=== PATIENT | female | born 1945 | race Caucasian/White ===

== ENCOUNTER 2020-09-18 16:45 | Outpatient (REF) | payer MEDICARE, SELFPAY ==
--- NOTE | ~2020-09-18 | XR_ITS ---
EXAMINATION: XR THORACIC SPINE CLINICAL INFORMATION: Spontaneous mid back pain COMPARISON: CT chest 04/01/2019. TECHNIQUE: 3 views of the thoracic spine were obtained. FINDINGS: There is exaggerated thoracic kyphosis with mild loss of T7 vertebral height. Rest of the vertebral heights, alignment and disc heights are preserved. There is no visible acute fracture, dislocation or lytic process. The paravertebral soft tissues are normal. Incidental finding of a thick scarring right lung base. XR/XR thoracic spine 3V IMPRESSION: Suspect acute T7 compression fracture. Recommend bone scan for further evaluation.
== END 2020-09-18 16:46 | disposition home or self-care (01) ==
LOC: HO.XRAY 16:45
PROVIDERS: PCP Family Medicine; Visit Provider Family Medicine
DX: M54.6 Pain in thoracic spine (principal)
CPT/HCPCS: 72072

== ENCOUNTER → 2020-09-22 09:51 | Outpatient (REF) | payer MEDICARE, SELFPAY ==
--- NOTE | ~2020-09-22 | NM_ITS ---
EXAMINATION: NM BONE SCAN OF THE WHOLE BODY CLINICAL INFORMATION: Acute back pain. Compression fracture on thoracic spine 09/18/2020. COMPARISON: Thoracic spine 09/18/2020 TECHNIQUE: Multiple gamma scintillation camera images of the whole body were performed 3 hours following the intravenous administration of 25 mCi Tc-99m MDP. FINDINGS: In the head, no abnormal activity seen. Nonspecific activity seen in the nasal cavity related to sinonasal disease. In the thoracic cage and upper extremities, there is mild increased activity seen left seventh and right sixth vertebra In the spine, there is moderate increased activity superior to C6 vertebra corresponding to acute compression fracture. There is moderate activity seen in the right L5-S1 facet joint consistent degenerative changes. In the pelvis, no abnormal metabolic activity seen in the SI joints. In the lower extremities, moderate metabolic activity seen in bilateral No other definite bony abnormalities are noted. The urinary bladder and faint visualization of both kidneys are noted. NM/NM bone scan whole body IMPRESSION: Moderate increased activity T6 vertebra consistent acute compression fracture. Due to osteoporosis exact numbering of the thoracic spine is suboptimal. There is mild focal activity seen in left 7 the right sixth posterior ribs likely remote trauma/fracture. Mild degenerative changes right medial knee joint and bilateral midfoot region.
[2020-09-22 10:38] LABS: Hematocrit 45.7 % (37-47); Hemoglobin 14.4 g/dl (12.0-16.0); Mean Corpuscular HGB Conc 31.5 g/dl (31.0-35.0); Mean Corpuscular Hemoglobin 30.2 pg (27.0-33.0); Mean Corpuscular Volume 95.8 fL (80-98); Mean Platelet Volume 10.6 fL (9.4-12.3); Red Blood Count 4.77 X10*6/uL (4.20-5.50); Red Cell Distribution Width 17.2 % (11.0-16.0)
[2020-09-22 10:52] LABS: WBC ABN SCTR FOR CBC 1
[2020-09-22 11:27] LABS: Alanine Aminotransferase 17 U/L (0-31); Albumin Level 3.3 g/dL (3.5-5.0); Alkaline Phosphatase 142 U/L (39-117); Aspartate Amino Transferase 35 U/L (5-31); Bilirubin Total 0.6 mg/dL (0.0-1.0); Blood Urea Nitrogen 16 mg/dL (9-16); Calcium 9.5 mg/dL (8.4-10.2); Estimated Glomerular Filt Rate 47; Glucose Random 133 mg/dL (60-115); Total Protein 6.4 g/dL (6.5-8.0)
[2020-09-22 11:41] LABS: Anion Gap 13 (12-20); Carbon Dioxide 33 mmol/L (22-29); Chloride 101 mmol/L (96-108); Potassium 6.1 mmol/L (3.3-5.1); Sodium 141 mmol/L (135-145)
[2020-09-22 12:14] LABS: Atypical Lymphs Percent Manual 1 % (0-6); Band Neutrophils Percent 4 % (3-5); Eosinophils Percent Manual 2 % (0-4); Lymphocytes Percent Manual 7 % (20-40); Monocytes Percent Manual 11 % (2-11); Neutrophils Percent Manual 75 % (45-73)
[2020-09-22 12:15] LABS: Macrocytosis 1+ (5-14) /OIF; Platelet Estimate INCREASED (NORMAL); RBC Morphology NOTED
[2020-09-22 12:16] LABS: Atypical Lymph Absolute Manual 0.1 x10*3/uL; Eosinophils Absolute Manual 0.3 X10*3/UL (0.0-0.8); Large Platelet PRESENT; Lymphocytes Absolute Manual 0.9 X10*3/uL (0.6-4.8); Monocytes Absolute Manual 1.4 X10*3/uL (0.0-1.2); Platelet Count 886 X10*3/uL (160-400); Platelet Morphology Comment NOTED; White Blood Count 12.7 X10*3/uL (4.8-10.8)
== END ==
LOC: HO.NUCMED 09:51
PROVIDERS: PCP Internal Medicine Medical Oncology; Visit Provider Internal Medicine Medical Oncology
DX: S22.060A Wedge compression fracture of T7-T8 vertebra, initial encounter for closed fracture (principal); E78.5 Hyperlipidemia, unspecified; E66.3 Overweight; Z85.3 Personal history of malignant neoplasm of breast
CPT/HCPCS: 36415; 78306; 80053; 85007; 85027; A9503

== ENCOUNTER → 2020-09-25 09:47 | Day surgery (SDC) | payer MEDICARE, SELFPAY ==
[2020-09-25] VITALS (8 sets, daily range): BP systolic 128–166; BP diastolic 68–92; PULSE 84–97; RESP 20–22; TEMP 36.1; O2SAT 90–96; BMI 31.2
--- NOTE | ~2020-09-25 | CT_ITS ---
EXAMINATION: CT THORACIC SPINE WITHOUT CONTRAST CLINICAL INFORMATION: Severe thoracic pain from T6 compression fracture on a bone scan. COMPARISON: None. TECHNIQUE: Axial 2 mm thin and reformatted 2 mm thin sagittal and coronal images of the thoracic spine were obtained from T4 through T9-T10 disc level. This CT examination was performed using dose optimization techniques as appropriate, variously including the following: *Automated exposure control *Adjustment of mA and/or kV according to patient size (this includes techniques or standardized protocols for targeted exams where dose is matched to indication/reason for exam; i.e. extremities or head) *Use of iterative reconstruction technique DLP: 196 mGy-cm. FINDINGS: On sagittal reconstructed images, there is maintained upper thoracic kyphosis. There is severe loss of T6 vertebral height approximately 50-60%. There is no posterior bony component causing spinal canal compromise. The neural foramina are patent bilaterally. The adjacent T5, T4, T7 and T8 vertebral heights are normal. There is diffuse osteopenia. There is no underlying disc bulge or herniation is spinal canal stenosis from T4-T5 through T9-T10 disc level. The paravertebral soft tissues are normal. A moderate-sized consolidation atelectasis right lower lobe. CT/CT thoracic spine wo con IMPRESSION: Acute T6 compression fracture with approximately 50-60% loss of vertebral height. There is no posteriorly bony component causing spinal canal stenosis. Diffuse osteopenia. Focal right lower lobe consolidation/atelectasis.
[2020-09-25 10:35] LABS: Basophils Percent Auto 0.5 % (0-2); Imm Gran Pct Auto 0.8 % (0.0-0.4); Neutrophils Percent Auto 85.7 % (45-73); WBC ABN SCTR 1
[2020-09-25 10:41] LABS: INTERNATIONAL NORM RATIO 1.2 (0.9-1.1)
[2020-09-25 10:44] LABS: Partial Thromboplastin Time 45.1 SEC (24.1-38.0)
[2020-09-25 10:52] LABS: Basophils Absolute Auto 0.1 X10*3/uL (0.0-0.2); Eosinophils Absolute Auto 0.3 X10*3/uL (0.0-0.4); Hematocrit 44.9 % (37-47); Hemoglobin 14.5 g/dl (12.0-16.0); Lymphocytes Absolute Auto 0.6 X10*3/uL (1.2-4.9); Lymphocytes Percent Auto 4.8 % (20-40); Mean Corpuscular HGB Conc 32.3 g/dl (31.0-35.0); Mean Corpuscular Hemoglobin 30.4 pg (27.0-33.0); Mean Corpuscular Volume 94.1 fL (80-98); Mean Platelet Volume 10.5 fL (9.4-12.3); Monocytes Absolute Auto 0.8 X10*3/uL (0.1-1.2); Monocytes Percent Auto 6.2 % (2-11); Neutrophils Absolute Auto 11.3 X10*3/uL (2.0-8.3); Platelet Count 879 X10*3/uL (160-400); Red Blood Count 4.77 X10*6/uL (4.20-5.50); Red Cell Distribution Width 16.8 % (11.0-16.0)
--- NOTE | 2020-09-25 10:52 | P.CONAN_ITS ---
[facility] Active Problems Active Problems: All Active Problems (Updated 09/25/20 @ 10:32 by Marizol Bishop ent, RN) COPD (chronic obstructive pulmonary disease) (Acute) Past Medical History Medical History Cerebral aneurysm Cerebral infarct COPD (chronic obstructive pulmonary disease) Emphysema lung Former smoker GERD (gastroesophageal reflux disease) HTN (hypertension) Neuropathy Osteoarthritis Osteoporosis PVC (premature ventricular contraction) Rheumatic fever Thoracic kyphosis Surgical History Surgical History H/O bilateral breast reduction surgery H/O breast reconstruction H/O cerebral aneurysm repair H/O right mastectomy Social History Social History Advance Directives: No Advance Directives Information Provided: Yes Meds Allergies Allergy/AdvReac Type Severity Reaction Status Date / Time fluoxetine [From PROZAC] Allergy Intermediate UNKNOWN Unverified 11/25/19 16:42 dexamethasone [From MAXIDEX] Allergy Mild RASH Unverified 11/25/19 16:42 hydrochlorothiazide Allergy Unknown RASH Unverified 11/25/19 16:42 [Hydrochlorothiazide] moxifloxacin [Moxifloxacin] Allergy Unknown RASH Unverified 11/25/19 16:42 Serotonin 5HT-3 Antagonists AdvReac Unknown UNKNOWN Unverified 11/25/19 16:42 [Selective 5-HT3 Receptor Antagonist] trazodone AdvReac Unknown nausea and Verified 01/14/19 00:00 vomiting Tricyclic Compounds AdvReac Unknown UNKNOWN Unverified 11/25/19 16:42 [TRICYCLIC COMPOUNDS] From MAXIDEX Allergy Unknown UNKNOWN Uncoded 11/25/19 16:42 Maxide Allergy Unknown Uncoded 01/14/19 00:00 SSRI(Prozac) Allergy Unknown Uncoded 01/14/19 00:00 TCA(Nortripyline) Allergy Unknown Uncoded 01/14/19 00:00 NORTRIPTILIENE AdvReac Intermediate UNKNOWN Uncoded 11/25/19 16:42 Home Medications Medication Instructions Recorded Confirmed Last Taken Type Glucosamine Msm 750 mg 09/25/20 Unknown History anastrozole 1 tab PO DAILY 09/25/20 09/25/20 Unknown History ascorbic acid (vitamin C) [Vitamin 1,000 mg PO DAILY 09/25/20 09/25/20 Unknown History C] aspirin 81 mg PO DAILY 09/25/20 09/25/20 Unknown History bupropion HCl 1 tab PO DAILY 09/25/20 09/25/20 Unknown History famotidine 1 tab PO DAILY 09/25/20 09/25/20 Unknown History losartan 1 tab PO DAILY 09/25/20 09/25/20 Unknown History magnesium 250 mg PO DAILY 09/25/20 09/25/20 Unknown History meloxicam 1 tab PO DAILY 09/25/20 09/25/20 Unknown History pregabalin 1 cap PO BID 09/25/20 09/25/20 Unknown History quetiapine 1 tab PO BEDTIME 09/25/20 09/25/20 Unknown History Exam Exam Date and Time: September 25, 2020 1052 Height,Weight and Vital Signs: Height 5 ft Weight 72.575 kg Pertinent Lab Results Pertinent Lab Results: Laboratory Tests 09/25/20 10:29 PT 14.0 H INR 1.2 H APTT 45.1 H Airway Mallampati Class: II TM Dist: <=3cm Neck ROM: Limited Assessment and Plan Assessment Anesthesia Assessment: Anesthesia Plan Discussed and Chart Reviewed Final Anesthetic Review NPO: Yes ASA Class: III Final Preanesthetic Review: No Changes in Pt Med Stat, Meds/Allgs Chart Reviewed, Consent Obtained/Reviewed and Anes Risks/Benef Reviewed Patient Risk: Intermediate Procedure Risk: Low Assessment/Block/Sedation in SS: Assess/Block/Sedation-SS Anesthetic Plan Anesthetic Plan: MAC: Disposition: Standard PACU
[2020-09-25 10:55] LABS: WBC ABN SCTR FOR CBC 1; White Blood Count 13.1 X10*3/uL (4.8-10.8)
[2020-09-25 11:16] LABS: Sodium 138 mmol/L (135-145)
[2020-09-25 11:19] LABS: Anion Gap 13 (12-20); Carbon Dioxide 35 mmol/L (22-29); Chloride 95 mmol/L (96-108); Potassium 4.5 mmol/L (3.3-5.1)
[2020-09-25] MEDS: Albuterol/Iprat 2.5/0.5MG 3 ML AMPUL.NEB INHALE (12:53)
[2020-09-25] MEDS: ondansetron HCL 4 MG/2 ML VIAL IVPUSH (13:01)
[2020-09-25] MEDS: oxyCODONE HCl Immed Release 5 MG TABLET PO (13:16)
== END ==
PROVIDERS: PCP Family Medicine; Visit Provider Radiology Diagnostic Radiology
DX: S22.059A Unspecified fracture of T5-T6 vertebra, initial encounter for closed fracture (principal); Z53.8 Procedure and treatment not carried out for other reasons; R06.00 Dyspnea, unspecified; J98.11 Atelectasis; R61 Generalized hyperhidrosis; M40.204 Unspecified kyphosis, thoracic region; J44.9 Chronic obstructive pulmonary disease, unspecified; Z99.81 Dependence on supplemental oxygen; Z87.891 Personal history of nicotine dependence; I10 Essential (primary) hypertension; C50.919 Malignant neoplasm of unspecified site of unspecified female breast; Z79.811 Long term (current) use of aromatase inhibitors; X58.XXXA Exposure to other specified factors, initial encounter; Y93.9 Activity, unspecified; Y92.9 Unspecified place or not applicable; Y99.8 Other external cause status
CPT/HCPCS: 36415; 72128; 80051; 85025; 85610; 85730; 94640; J0131; J0690; J2405; J3010

== ENCOUNTER 2020-12-12 07:54 | Outpatient (REF) | payer MEDICARE, SELFPAY ==
--- NOTE | ~2020-12-12 | MM_ITS ---
EXAMINATION: BONE DENSITOMETRY CLINICAL INDICATION: Breast cancer. COMPARISON: Baseline BD dated 02/13/2007. Radiographs thoracic spine 09/18/2020, nuclear bone scan 09/22/2020, CT C-spine 09/25/2020. TECHNIQUE: Using a [email or web address] DXA System (software version: 13.1) manufactured by [employer], dual-energy x-ray absorptiometry was performed of the lumbar spine and left hip. The images are of good technical quality. Summary results are attached. FINDINGS: AP SPINE L1-L4: Current: BMD 0.740 g/cm2, Z-score -1.9, T-score -3.7, osteoporosis, 6.0% increase from baseline (<5% change is not significant). Baseline: BMD 0.698 g/cm2. LEFT FEMUR, NECK: Current: BMD 0.738 g/cm2, Z-score -0.2, T-score -2.2, osteopenia. Baseline: BMD 0.816 g/cm2. LEFT FEMUR, TOTAL: Current: BMD 0.839 g/cm2, Z-score 0.4, T-score -1.3, osteopenia, 11.2% decrease from baseline (<5% change is not significant). Baseline: BMD 0.945 g/cm2. IDENTIFIED RISK FACTORS: Early menopause, history of fracture (adult), secondary osteoporosis. HISTORY OF FRACTURE: Acute T6 compression fracture 2020. MEDICATIONS: Multivitamin, vitamin D, calcitonin. MM/XR DEXA axial skeleton IMPRESSION: 1. DIAGNOSIS: Severe osteoporosis based on the lowest T-score value of -3.7 in the lumbar spine and history compression fracture thoracic spine applying World Health Organization criteria. 2. 10-YEAR FRACTURE RISK PREDICTION, FRAX: Major osteoporotic fracture (clinical spine, forearm, hip or shoulder) 21.7%. Hip fracture 5.8%. 3. Treatment Recommendations: NOF guidelines recommend consideration for treatment in postmenopausal women and men age 50 and older presenting with the following: -A hip or vertebral (clinical or morphometric) fracture. -T-score less than or equal to -2.5 at the femoral neck or spine after appropriate evaluation to exclude secondary causes. -Low bone mass at the hip or spine and a 10-year fracture probability by FRAX of greater than or equal to 3% for hip fracture or greater than or equal to 20% for major osteoporotic fracture based on the [place] adapted WHO algorithm. 4. Other Recommendations: All treatment decisions require clinical judgment and consideration of individual patient factors, including patient preferences, comorbidities, previous drug use, risk factors not captured in the FRAX model (e.g. frailty, falls, vitamin D deficiency, increased bone turnover, interval significant decline in bone density) and possible under or overestimation of fracture risk by FRAX. Additional medical evaluation for secondary cause of low bone mineral density may be appropriate. FUTURE SCAN RECOMMENDATION: People with diagnosed cases of osteoporosis or at high risk for fracture should have regular bone mineral density tests. For patients eligible for Medicare, routine testing is allowed once every 2 years. The testing frequency can be increased to one year for patients who have rapidly progressing disease, those who are receiving or discontinuing medical therapy to restore bone mass, or have additional risk factors.
== END 2020-12-12 07:55 | disposition home or self-care (01) ==
LOC: HO.MAMMO 07:54
PROVIDERS: PCP Family Medicine; Visit Provider Internal Medicine Medical Oncology
DX: Z13.820 Encounter for screening for osteoporosis (principal); Z78.0 Asymptomatic menopausal state; C50.211 Malignant neoplasm of upper-inner quadrant of right female breast; S22.060A Wedge compression fracture of T7-T8 vertebra, initial encounter for closed fracture; X58.XXXA Exposure to other specified factors, initial encounter; Y93.9 Activity, unspecified; Y92.9 Unspecified place or not applicable; Y99.9 Unspecified external cause status
CPT/HCPCS: 77080

== ENCOUNTER 2021-02-23 12:54 | Outpatient (REF) | payer MEDICARE, SELFPAY ==
[2021-02-23 13:54] LABS: Hematocrit 48.9 % (37.0-47.0); Hemoglobin 15.2 g/dl (12.0-16.0); Mean Corpuscular HGB Conc 31.1 g/dl (31.0-35.0); Mean Corpuscular Hemoglobin 30.5 pg (27.0-33.0); Red Blood Count 4.99 X10*6/uL (4.20-5.50); Red Cell Distribution Width 13.6 % (11.0-16.0)
[2021-02-23 14:05] LABS: WBC ABN SCTR FOR CBC 1
[2021-02-23 14:19] LABS: Alanine Aminotransferase 23 U/L (0-31); Albumin Level 3.7 g/dL (3.5-5.0); Alkaline Phosphatase 140 U/L (39-117); Anion Gap 16 (12-20); Aspartate Amino Transferase 44 U/L (5-31); Bilirubin Total 0.8 mg/dL (0.0-1.0); Blood Urea Nitrogen 8 mg/dL (9-16); Calcium 9.8 mg/dL (8.4-10.2); Carbon Dioxide 29 mmol/L (22-29); Chloride 98 mmol/L (96-108); Estimated Glomerular Filt Rate > 60; Glucose Random 80 mg/dL (60-115); Potassium 5.6 mmol/L (3.3-5.1); Sodium 137 mmol/L (135-145); Total Protein 7.2 g/dL (6.5-8.0)
[2021-02-23 14:22] LABS: Basophils Percent Manual 1 % (0-2); Eosinophils Percent Manual 3 % (0-4); Lymphocytes Percent Manual 17 % (20-40); Monocytes Percent Manual 12 % (2-11); Neutrophils Percent Manual 67 % (45-73)
[2021-02-23 14:23] LABS: Band Neutrophils Percent 0 % (3-5)
[2021-02-23 14:24] LABS: RBC Morphology NORMAL
[2021-02-23 14:25] LABS: Giant Platelet PRESENT; Large Platelet PRESENT; Macrocytosis 1+ (5-14) /OIF; Platelet Estimate INCREASED (NORMAL); Platelet Morphology Comment NOTED
[2021-02-23 14:34] LABS: Basophils Abs Manual 0.1 X10*3/uL (0.0-0.2); Eosinophils Absolute Manual 0.4 X10*3/uL (0.0-0.4); Lymphocytes Absolute Manual 2.1 X10*3/uL (1.2-4.9); Monocytes Absolute Manual 1.5 X10*3/uL (0.1-1.2); Neutrophils Absolute Manual 8.2 X10*3/uL (2.0-8.3); White Blood Count 12.2 X10*3/uL (4.8-10.8)
[2021-02-23 14:36] LABS: Platelet Count 1055 X10*3/uL (160-400)
[2021-02-27 10:46] LABS: CA 27.29 31 U/mL (<38)
== END 2021-02-23 12:55 | disposition home or self-care (01) ==
LOC: HO.10HDL 12:54
PROVIDERS: Visit Provider Internal Medicine Medical Oncology
DX: S22.000D Wedge compression fracture of unspecified thoracic vertebra, subsequent encounter for fracture with routine healing (principal); I10 Essential (primary) hypertension; E78.5 Hyperlipidemia, unspecified; D47.3 Essential (hemorrhagic) thrombocythemia
CPT/HCPCS: 36415; 80053; 85007; 85025; 85027; 86300

== ENCOUNTER 2021-03-06 11:30 | Outpatient (REF) | payer MEDICARE, SELFPAY ==
[2021-03-06 14:26] LABS: MANUAL DIFF FLAG NO
[2021-03-06 14:39] LABS: Basophils Absolute Auto 0.1 X10*3/uL (0.0-0.2); Basophils Percent Auto 0.8 % (0-2); Eosinophils Absolute Auto 0.5 X10*3/uL (0.0-0.4); Eosinophils Percent Auto 4.4 % (0-4); Hematocrit 48.3 % (37.0-47.0); Hemoglobin 15.2 g/dl (12.0-16.0); Imm Gran Abs Auto 0.06 X10*3/uL (0.00-0.03); Imm Gran Pct Auto 0.6 % (0.0-0.4); Lymphocytes Absolute Auto 1.3 X10*3/uL (1.2-4.9); Lymphocytes Percent Auto 12.6 % (20-40); Mean Corpuscular HGB Conc 31.5 g/dl (31.0-35.0); Mean Corpuscular Hemoglobin 29.8 pg (27.0-33.0); Mean Corpuscular Volume 94.7 fL (80.0-98.0); Monocytes Percent Auto 9.2 % (2-11); Neutrophils Absolute Auto 7.7 x10*3/uL (2.0-8.3); Neutrophils Percent Auto 72.4 % (45-73); Platelet Count 960 X10*3/uL (160-400); Red Cell Distribution Width 13.9 % (11.0-16.0); White Blood Count 10.6 X10*3/uL (4.8-10.8)
== END 2021-03-06 11:31 | disposition home or self-care (01) ==
LOC: HO.10HDL 11:30
PROVIDERS: Visit Provider Internal Medicine Medical Oncology
DX: D45 Polycythemia vera (principal); Z13.71 Encounter for nonprocreative screening for genetic disease carrier status; Z66 Do not resuscitate
CPT/HCPCS: 36415; 81270; 85025

== ENCOUNTER 2021-04-24 12:23 | Outpatient (REF) | payer MEDICARE, SELFPAY ==
[2021-04-24 13:57] LABS: Hematocrit 47.8 % (37.0-47.0); Hemoglobin 15.1 g/dl (12.0-16.0); Mean Corpuscular HGB Conc 31.6 g/dl (31.0-35.0); Mean Corpuscular Hemoglobin 30.3 pg (27.0-33.0); Mean Corpuscular Volume 95.8 fL (80.0-98.0); Red Blood Count 4.99 X10*6/uL (4.20-5.50); Red Cell Distribution Width 18.9 % (11.0-16.0); White Blood Count 7.6 X10*3/uL (4.8-10.8)
[2021-04-24 14:32] LABS: Mean Platelet Volume 11.2 fL (9.4-12.3); Platelet Count 385 X10*3/uL (160-400)
== END 2021-04-24 12:24 | disposition home or self-care (01) ==
LOC: HO.10HDL 12:23
PROVIDERS: Absent Provider Internal Medicine Medical Oncology; Visit Provider Family Medicine
DX: D75.839 Thrombocytosis, unspecified (principal)
CPT/HCPCS: 36415; 85027

== ENCOUNTER 2021-06-05 14:32 | Outpatient (REF) | payer MEDICARE, SELFPAY ==
[2021-06-05 15:17] LABS: Hematocrit 45.9 % (37.0-47.0); Hemoglobin 14.8 g/dl (12.0-16.0); Mean Corpuscular HGB Conc 32.2 g/dl (31.0-35.0); Mean Corpuscular Hemoglobin 31.4 pg (27.0-33.0); Mean Corpuscular Volume 97.2 fL (80.0-98.0); Mean Platelet Volume 11.2 fL (9.4-12.3); Platelet Count 443 X10*3/uL (160-400); Red Blood Count 4.72 X10*6/uL (4.20-5.50); Red Cell Distribution Width 17.6 % (11.0-16.0)
[2021-06-05 15:26] LABS: WBC ABN SCTR FOR CBC 1
[2021-06-05 16:03] LABS: Atypical Lymphs Percent Manual 2 % (0-6); Band Neutrophils Percent 6 % (3-5); Basophils Percent Manual 1 % (0-2); Eosinophils Percent Manual 9 % (0-4); Lymphocytes Percent Manual 12 % (20-40); Monocytes Percent Manual 8 % (2-11); Myelocytes Percent 1 %; Neutrophils Percent Manual 61 % (45-73)
[2021-06-05 16:15] LABS: Macrocytosis 1+ (5-14) /OIF; RBC Morphology NOTED
[2021-06-05 16:16] LABS: Large Platelet PRESENT
[2021-06-05 16:17] LABS: Platelet Estimate SLIGHTLY INCREASED (NORMAL)
[2021-06-05 16:18] LABS: Platelet Morphology Comment NOTE; Toxic Vacuolation PRESENT
[2021-06-05 16:32] LABS: Atypical Lymph Absolute Manual 0.1 x10*3/uL; Basophils Abs Manual 0.1 X10*3/uL (0.0-0.2); Eosinophils Absolute Manual 0.6 X10*3/uL (0.0-0.4); Lymphocytes Absolute Manual 0.8 X10*3/uL (1.2-4.9); Monocytes Absolute Manual 0.5 X10*3/uL (0.1-1.2); Myelocytes Absolute 0.1 X10*/uL; Neutrophils Absolute Manual 4.4 X10*3/uL (2.0-8.3); White Blood Count 6.6 X10*3/uL (4.8-10.8)
== END 2021-06-05 14:33 | disposition home or self-care (01) ==
LOC: HO.LAB 14:32
PROVIDERS: Absent Provider Internal Medicine Medical Oncology; PCP Internal Medicine Medical Oncology; Visit Provider Family Medicine
DX: D75.839 Thrombocytosis, unspecified (principal)
CPT/HCPCS: 36415; 85007; 85025; 85027

== ENCOUNTER 2021-08-21 09:26 | Outpatient (REF) | payer MEDICARE, SELFPAY ==
[2021-08-21 09:39] LABS: MANUAL DIFF FLAG NO
[2021-08-21 10:26] LABS: Basophils Absolute Auto 0.1 X10*3/uL (0.0-0.2); Basophils Percent Auto 0.7 % (0-2); Eosinophils Absolute Auto 0.4 X10*3/uL (0.0-0.4); Eosinophils Percent Auto 4.6 % (0-4); Hematocrit 42.2 % (37.0-47.0); Hemoglobin 13.5 g/dl (12.0-16.0); Imm Gran Abs Auto 0.06 X10*3/uL (0.00-0.03); Imm Gran Pct Auto 0.6 % (0.0-0.4); Lymphocytes Absolute Auto 1.5 X10*3/uL (1.2-4.9); Lymphocytes Percent Auto 15.6 % (20-40); Mean Corpuscular Hemoglobin 32.1 pg (27.0-33.0); Mean Corpuscular Volume 100.2 fL (80.0-98.0); Mean Platelet Volume 10.6 fL (9.4-12.3); Monocytes Absolute Auto 1.1 X10*3/uL (0.1-1.2); Monocytes Percent Auto 11.5 % (2-11); Neutrophils Absolute Auto 6.4 x10*3/uL (2.0-8.3); Platelet Count 728 X10*3/uL (160-400); Red Blood Count 4.21 X10*6/uL (4.20-5.50); Red Cell Distribution Width 15.1 % (11.0-16.0); White Blood Count 9.5 X10*3/uL (4.8-10.8)
[2021-08-21 11:02] LABS: Alanine Aminotransferase 23 U/L (0-31); Albumin Level 3.6 g/dL (3.5-5.0); Alkaline Phosphatase 124 U/L (39-117); Anion Gap 13 (12-20); Aspartate Amino Transferase 37 U/L (5-31); Bilirubin Total 0.9 mg/dL (0.0-1.0); Blood Urea Nitrogen 16 mg/dL (9-16); Calcium 9.5 mg/dL (8.4-10.2); Carbon Dioxide 29 mmol/L (22-29); Chloride 103 mmol/L (96-108); Estimated Glomerular Filt Rate > 60; Glucose Random 87 mg/dL (60-115); Potassium 5.2 mmol/L (3.3-5.1); Sodium 140 mmol/L (135-145); Total Protein 6.8 g/dL (6.5-8.0)
[2021-08-23 08:43] LABS: CA 27.29 27 U/mL (<38)
== END 2021-08-21 09:27 | disposition home or self-care (01) ==
LOC: HO.LAB 09:26
PROVIDERS: PCP Internal Medicine Medical Oncology; Visit Provider Internal Medicine Medical Oncology
DX: I10 Essential (primary) hypertension (principal); C50.919 Malignant neoplasm of unspecified site of unspecified female breast; Z66 Do not resuscitate
CPT/HCPCS: 36415; 80053; 85025; 86300

== ENCOUNTER 2021-09-02 12:29 | Inpatient (IN) | payer MEDICARE, SELFPAY ==
[2021-09-02] VITALS (7 sets, daily range): BP systolic 75–111; BP diastolic 37–70; PULSE 96–107; RESP 18–22; TEMP 36.9–37.6; O2SAT 94–95; BMI 29.2
--- NOTE | ~2021-09-02 | CT_ITS ---
EXAMINATION: CT HEAD WITHOUT CONTRAST CLINICAL INFORMATION: Ataxia with weakness. Rule out stroke or bleed. COMPARISON: CTA head 06/01/2009 TECHNIQUE: Imaging was performed from the skull base to vertex without intravenous administration of contrast. This CT examination was performed using dose optimization techniques as appropriate, variously including the following: *Automated exposure control *Adjustment of mA and/or kV according to patient size (this includes techniques or standardized protocols for targeted exams where dose is matched to indication/reason for exam; i.e. extremities or head) *Use of iterative reconstruction technique Total exam dose length product: 638 mGy-cm FINDINGS: No intra or extra-axial fluid collection, hemorrhage, or mass. No ventriculomegaly. No midline shift or herniation. Basal cisterns are patent. Chen-white matter differentiation is maintained. Aneurysm clips project along the anterior [place] of [place] in the region of the left MCA. Small area of encephalomalacia in the left frontal lobe. No significant volume loss. Relatively extensive confluent hypoattenuation within the supratentorial white matter bilaterally more focal low attenuation in the left subinsular white matter. No calvarial fracture or soft tissue abnormality. The mastoid air cells and visualized portions of the paranasal sinuses are well aerated. Status post left frontotemporal craniotomy. CT/CT head/brain wo con IMPRESSION: 1. No intracranial hemorrhage or acute edematous territorial infarct. 2. Status post left frontotemporal craniotomy and aneurysm clipping x2. 3. Extensive supratentorial white matter hypoattenuation bilaterally, nonspecific, presumably sequela of chronic small vessel ischemia.
--- NOTE | ~2021-09-02 | XR_ITS ---
EXAMINATION: XR CHEST CLINICAL INFORMATION: Weakness and cough COMPARISON: 11/17/2019 TECHNIQUE: Frontal view of the chest was obtained. FINDINGS: Heart size upper limits of normal. No evidence of CHF. Again seen are some chronic reticular markings/atelectasis/scarring at the lung bases. At the left lung base, there is a new opacity seen in the left costophrenic angle which could be new subtle area of infiltrate. XR/XR chest 1V IMPRESSION: New opacity left costophrenic angle may represent infiltrate/atelectasis. Continued chronic changes at the lung bases.
--- NOTE | ~2021-09-02 | CT_ITS ---
EXAMINATION: CT CHEST WITHOUT CONTRAST CLINICAL INFORMATION: Shortness of breath COMPARISON: Previous chest CT most recent March 2019 and chest x-ray most recent 09/02/2021. CT of the thoracic spine and x-ray of the thoracic spine September 2020 TECHNIQUE: Multidetector volumetric CT imaging of the chest was done. Axial MIP volume rendering provided. Sagittal and coronal reformatted images were obtained. This CT examination was performed using dose optimization techniques as appropriate, variously including the following: *Automated exposure control *Adjustment of mA and/or kV according to patient size (this includes techniques or standardized protocols for targeted exams where dose is matched to indication/reason for exam; i.e. extremities or head) *Use of iterative reconstruction technique DLP: 146 mGy-cm FINDINGS: LUNGS: There is evidence of emphysema. There is a 3 mm peripheral or subpleural right upper lobe nodule adjacent to the major fissure axial image 112 series 7. There are small calcified nodules largest measuring 5 mm in the right upper lobe axial image 171 series 7 and 1 cm in the left lower lobe axial image 242 series 7. Pulmonary nodules are stable. There are increased peripheral reticular markings questionable for mild interstitial lung disease. There is bibasilar atelectasis/consolidation, right greater than left. No endobronchial or endotracheal lesion. MEDIASTINUM: The heart is enlarged. There is coronary artery calcification. There is no pericardial effusion. There are no enlarged hilar or mediastinal lymph nodes. PLEURA: There is no pleural effusion. No pleural mass or thickening. AXILLA: No lymphadenopathy. UPPER ABDOMEN: The liver appears cirrhotic. There are upper abdominal varices. No ascites. There is a gallstone in the gallbladder. The spleen is upper normal in size and there are splenic calcifications suggestive of old granulomatous disease. OSSEOUS STRUCTURES: There is a severe midthoracic vertebral body compression fracture increased from September 2020 exam. There is slight posterior displacement into the spinal canal measuring approximately 3 mm. There are old right lateral rib fractures. There are degenerative changes of the spine. CT/CT chest wo con IMPRESSION: Emphysema. Question mild interstitial lung disease. Atelectasis or small infiltrates at the lung bases, right greater than left. Enlarged heart and coronary artery calcification. Cirrhotic-appearing liver. Gallstone. Severe midthoracic vertebral body compression fracture increased from September 2020 exams Fleischner guidelines were followed.
[2021-09-02 13:32] LABS: Hematocrit 36.4 % (37.0-47.0); Hemoglobin 11.7 g/dl (12.0-16.0); Mean Corpuscular HGB Conc 32.1 g/dl (31.0-35.0); Mean Corpuscular Hemoglobin 31.6 pg (27.0-33.0); Mean Corpuscular Volume 98.4 fL (80.0-98.0); Mean Platelet Volume 11.1 fL (9.4-12.3); Platelet Count 405 X10*3/uL (160-400); Red Cell Distribution Width 14.8 % (11.0-16.0)
[2021-09-02 13:34] LABS: WBC ABN SCTR FOR CBC 1
[2021-09-02 13:40] LABS: INTERNATIONAL NORM RATIO 1.2 (0.9-1.1); Prothrombin Time 13.6 SEC (9.9-13.0)
[2021-09-02 13:43] LABS: Partial Thromboplastin Time 38.6 SEC (24.1-38.0)
[2021-09-02 13:44] LABS: Alanine Aminotransferase 20 U/L (0-31); Albumin Level 3.3 g/dL (3.5-5.0); Alkaline Phosphatase 99 U/L (39-117); Anion Gap 12 (12-20); Aspartate Amino Transferase 38 U/L (5-31); Bilirubin Total 0.5 mg/dL (0.0-1.0); Blood Urea Nitrogen 23 mg/dL (9-16); Calcium 9.1 mg/dL (8.4-10.2); Carbon Dioxide 27 mmol/L (22-29); Chloride 103 mmol/L (96-108); Creatinine Clr Calc Pharmacy 20.2; Estimated Glomerular Filt Rate 24; Glucose Random 97 mg/dL (60-115); Lipase 34 U/L (8-78); Sodium 137 mmol/L (135-145); Total Protein 6.3 g/dL (6.5-8.0)
[2021-09-02 13:45] LABS: Troponin-I High Sensitivity 26.8 ng/L (<3.5-17.0)
[2021-09-02 13:46] LABS: COVID-19 Test Negative (Negative); IDNOW Serial# 16C4AD1C; Influenza A Negative (Negative); Influenza B2 Negative (Negative)
--- NOTE | 2021-09-02 13:46 | ED_ITS ---
HPI - Altered Mental Status General Chief Complaint: Altered Mental Status Stated Complaint: Weakness/Fall t-1 Time Seen by Provider: 09/02/21 12:56 Source: patient and family (, Dr. Cruz) Mode of arrival: ambulatory Limitations: no limitations History of Present Illness HPI narrative: 76-year-old female who presents emergency department for evaluation of not feeling well, feeling off balance, having ataxia and increased confusion above her baseline. The patient's is a physician here at this institution . The information mainly came from the patient's . He states that his has never deficit and executive function disorders. They traveled to [place] for vacation. When they got to [place] the patient was not feeling well. Last night, the patient felt off balance and her noted that she was ataxic. The patient also was more confused than her baseline. The was concerned about the symptoms intro back to [place] to bring the patient to our emergency department. Related Data Home Medications Medication Instructions Recorded Confirmed Glucosamine Msm 750 mg 09/25/20 anastrozole 1 mg tablet 1 tab PO DAILY 09/25/20 09/25/20 ascorbic acid (vitamin C) 1,000 mg 1,000 mg PO DAILY 09/25/20 09/25/20 tablet (Vitamin C) aspirin 81 mg tablet 81 mg PO DAILY 09/25/20 09/25/20 famotidine 40 mg tablet 1 tab PO DAILY 09/25/20 09/25/20 losartan 100 mg tablet 1 tab PO DAILY 09/25/20 09/25/20 magnesium 250 mg tablet 250 mg PO DAILY 09/25/20 09/25/20 pregabalin 25 mg capsule 1 cap PO BID 09/25/20 09/25/20 quetiapine 25 mg tablet 1 tab PO BEDTIME 09/25/20 09/25/20 anagrelide 1 mg capsule 2 cap PO DAILY 09/02/21 bupropion HCl 300 mg 24 hr tablet, 1 tab PO DAILY 09/02/21 extended release donepezil 5 mg tablet 1 tab PO DAILY 09/02/21 Previous Rx's Medication Instructions Recorded albuterol sulfate 90 mcg/actuation 2 puff inhalation Q6H PRN 12/19/20 aerosol inhaler (ProAir HFA) shortness of breath or wheezing 30 days #18 grams budesonide 0.5 mg/2 mL suspension 0.5 mg (2 mL) inhalation DAILY 90 03/11/21 for nebulization days #180 mL ipratropium 0.5 mg-albuterol 3 mg 3 ml inhalation QID 90 days #1,080 03/11/21 (2.5 mg base)/3 mL nebulization mL soln Allergies Allergy/AdvReac Type Severity Reaction Status Date / Time fluoxetine [From PROZAC] Allergy Intermediate UNKNOWN Unverified 11/25/19 16:42 dexamethasone [From MAXIDEX] Allergy Mild RASH Unverified 11/25/19 16:42 hydrochlorothiazide Allergy Unknown RASH Unverified 11/25/19 16:42 [Hydrochlorothiazide] moxifloxacin [Moxifloxacin] Allergy Unknown RASH Unverified 11/25/19 16:42 Serotonin 5HT-3 Antagonists AdvReac Unknown UNKNOWN Unverified 11/25/19 16:42 [Selective 5-HT3 Receptor Antagonist] trazodone AdvReac Unknown nausea and Verified 01/14/19 00:00 vomiting Tricyclic Compounds AdvReac Unknown UNKNOWN Unverified 11/25/19 16:42 [TRICYCLIC COMPOUNDS] From MAXIDEX Allergy Unknown UNKNOWN Uncoded 11/25/19 16:42 Maxide Allergy Unknown Uncoded 01/14/19 00:00 SSRI(Prozac) Allergy Unknown Uncoded 01/14/19 00:00 TCA(Nortripyline) Allergy Unknown Uncoded 01/14/19 00:00 NORTRIPTILIENE AdvReac Intermediate UNKNOWN Uncoded 11/25/19 16:42 Review of Systems Review of Systems: Yes Unobtainable due to mental status [facility] Past Medical History [facility] Narrative: Social history: She lives with . She denies tobacco, alcohol and drug use Medical History (Updated 09/02/21 @ 15:37 by Milton Valdez MD) Cerebral aneurysm Cerebral infarct Emphysema lung Former smoker GERD (gastroesophageal reflux disease) HTN (hypertension) Neuropathy Osteoarthritis Osteoporosis PVC (premature ventricular contraction) Rheumatic fever Sepsis Thoracic kyphosis Thrombocytosis Surgical History H/O bilateral breast reduction surgery H/O breast reconstruction H/O cerebral aneurysm repair H/O right mastectomy Social History Social History Patient Tobacco Use Status: Former Tobacco user Use of substances other than those prescribed or required for medical reasons: No Advance Directives: Yes Advance Directives on File: Yes Advance Directives Date on File: 09/26/20 Physical Exam ED Vital Signs: Vital Signs - 24 hr 09/02/21 12:33 09/02/21 12:46 09/02/21 13:58 Temperature 99.6 F 98.4 F Pulse Rate 107 H 106 H Respiratory Rate 22 H 20 Blood Pressure 80/38 L 101/48 L Pulse Oximetry 94 95 Oxygen Delivery Method Room Air Room Air 09/02/21 14:48 Temperature 98.4 F Pulse Rate 97 Respiratory Rate Blood Pressure 104/45 L Pulse Oximetry Oxygen Delivery Method BMI result Body Mass Index 29.2 Const Other: Awake, alert, elderly female, very pleasant cooperative, oriented to person, answers questions appropriately but deferred medical questions to her HENMT Head: Yes normal to inspection, Yes normocephalic and Yes atraumatic Ears: external ears normal General nose exam: Normal external nose present Face and sinus: Yes normal facial exam Mouth: Normal oral and palatal mucosa present Throat: Yes posterior oropharynx normal Eyes General: appearance normal, both eyes and all related structures Pupils: Equal, round and reactive pupils present Neck Neck: Yes normal visual inspection, Yes no lymphadenopathy, Yes trachea midline and Yes supple Chest Chest palpation & inspection: normal inspection of the chest and normal palpation of entire chest wall Resp Effort & Inspection: normal respiratory effort and able to speak in complete sentences Auscultation: clear to auscultation bilaterally Cardio Rate: regular rate Rhythm: regular rhythm Heart sounds: S1 normal heart sound present, S2 normal heart sound present and no murmurs GI Inspection: Yes normal to inspection Palpation (GI): Soft to palpation, nontender and no guarding Auscultation: normal bowel sounds General: Yes no CVA tenderness Back/Spine/Pelvis Back: no CVA tenderness Skin General skin exam: no rashes or lesions noted Neuro Cranial nerves: Yes CN's II-XII intact bilaterally and Yes Equal, round and reactive pupils present Cognition (Neuro): normal cognition Motor exam (neuro): 5/5 motor strength present throughout Extrem General: Yes normal to inspection Psych Appearance: grossly normal Speech and movement: Normal speech and movement present Affect: normal affect Attitude: cooperative Thought process: Normal thought process present Thought content: Normal thought content present Course Course Course Narrative: 76-year-old female who presents emergency department for evaluation of not feeling well, being off balance, increased confusion above her baseline and having ataxia. Information comes from the patient's who is a physician at this institution. Vital signs revealed a low blood pressure of 80/38, elevated heart rate 107, elevated respiratory 22. Patient was afebrile and her O2 saturation was 94% on room air. Patient's physical examination was unremarkable. Differential includes but is not limited to stroke, cerebral bleed, urinary tract infection, pneumonia, metabolic abnormality. I did order a CBC, CMP, lactate, lipase, troponin, blood cultures x2, chest x-ray and CT scan of the brain without contrast. Patient was initially hypotensive and she was ordered to get a L of normal saline IV. 1529: Laboratory evaluation: Anemia with an H&H of 11.736.4. Elevated BUN and creatinine 23 and 2.0. Troponin 1 elevated 26.8 lactate normal 1.1. COVID-19 and influenza negative. Urinalysis: 2+ leukocyte esterase, 1+ nitrates. Microscopic: 29 WBCs, 4+ bacteria, 1+ squamous cells. Radiology evaluation: Chest x-ray: Bilateral atelectasis/infiltrates, increase bronchovascular markings CT scan of the brain: No acute disease. Left temporal craniotomy with aneurysm clips. The patient's symptoms are most likely caused by an infectious process either urinary tract infection or pneumonia. The patient was ordered to get ceftriaxone 1 g IV and azithromycin 500 mg IV. I will obtain an EKG on this patient and repeat the patient's troponin at 16:15 hours. I will discuss admission with the covering hospitalist, Dr. Alonso. MDM - Altered Mental Status Lab Data Result diagrams: 09/02/21 13:14 09/02/21 13:14 Labs: Lab Results 09/02/21 09/02/21 09/02/21 Range/Units 13:13 13:13 13:14 WBC 11.1 H (4.8-10.8) X10*3/uL RBC 3.70 L (4.20-5.50) X10*6/uL Hgb 11.7 L (12.0-16.0) g/dl Hct 36.4 L (37.0-47.0) % MCV 98.4 H (80.0-98.0) fL MCH 31.6 (27.0-33.0) pg MCHC 32.1 (31.0-35.0) g/dl RDW 14.8 (11.0-16.0) % Plt Count 405 H D (160-400) X10*3/uL MPV 11.1 (9.4-12.3) fL Immature Gran % (Auto) Cancelled Neut % (Auto) Cancelled Lymph % (Auto) Cancelled [place] % (Auto) Cancelled Eos % (Auto) Cancelled Baso % (Auto) Cancelled Lymph # (Auto) Cancelled [place] # (Auto) Cancelled Eos # (Auto) Cancelled Baso # (Auto) Cancelled Abs Immat Gran (auto) Cancelled Absolute Neuts (auto) Cancelled Absolute Nucleated RBC 0.000 (0.0-0.012) X10*3/uL Nucleated RBC % (auto) 0.0 (0.0-0.2) /100WBC Neutrophils % (Manual) 83 H (45-73) % Band Neutrophils % 5 (3-5) % Lymphocytes % (Manual) 5 L (20-40) % Monocytes % (Manual) 5 (2-11) % Eosinophils % (Manual) 2 (0-4) % Abs Neuts (Manual) 9.8 H (2.0-8.3) X10*3/uL Lymphocytes # (Manual) 0.6 L (1.2-4.9) X10*3/uL Monocytes # (Manual) 0.6 (0.1-1.2) X10*3/uL Eosinophils # (Manual) 0.2 (0.0-0.4) X10*3/uL Platelet Estimate INCREASED (NORMAL) Large Platelets PRESENT Giant Platelets PRESENT Plt Morphology Comment NOTED RBC Morphology NOTED Hypochromasia 1+ (5-14) /OIF Macrocytosis 1+ (5-14) /OIF Ovalocytes 1+ (5-14) /OIF PT (9.9-13.0) SEC INR (0.9-1.1) APTT (24.1-38.0) SEC Sodium (135-145) mmol/L Potassium (3.3-5.1) mmol/L Chloride (96-108) mmol/L Carbon Dioxide (22-29) mmol/L Anion Gap (12-20) BUN (9-16) mg/dL Creatinine (0.5-1.4) mg/dL Estim Creat Clear Calc Estimated GFR Random Glucose (60-115) mg/dL Lactic Acid (0.5-2.0) mmol/L Calcium (8.4-10.2) mg/dL Total Bilirubin (0.0-1.0) mg/dL AST (5-31) U/L ALT (0-31) U/L Alkaline Phosphatase (39-117) U/L Troponin I High Sens (<3.5-17.0) ng/L Total Protein (6.5-8.0) g/dL Albumin (3.5-5.0) g/dL Lipase (8-78) U/L Urine Color Urine Appearance Urine pH (5.0-8.0) Ur Specific [place] (1.005-1.025) Urine Protein (NEG-TRACE) MG/DL Urine Glucose (UA) (NEG) MG/DL Urine Ketones (NEG) MG/DL Urine Blood (NEG) Urine Nitrite (NEG) Ur Leukocyte Esterase (NEG) COVID-19 (REYNALDO) Negative (Negative) COVID-19 Clin Com See Note Influenza Type A (JAYLON) Negative (Negative) Influenza Type B (JAYLON) Negative (Negative) Influenza A & B Note See Note 09/02/21 09/02/21 09/02/21 Range/Units 13:14 13:14 13:14 WBC (4.8-10.8) X10*3/uL RBC (4.20-5.50) X10*6/uL Hgb (12.0-16.0) g/dl Hct (37.0-47.0) % MCV (80.0-98.0) fL MCH (27.0-33.0) pg MCHC (31.0-35.0) g/dl RDW (11.0-16.0) % Plt Count (160-400) X10*3/uL MPV (9.4-12.3) fL Immature Gran % (Auto) Neut % (Auto) Lymph % (Auto) [place] % (Auto) Eos % (Auto) Baso % (Auto) Lymph # (Auto) [place] # (Auto) Eos # (Auto) Baso # (Auto) Abs Immat Gran (auto) Absolute Neuts (auto) Absolute Nucleated RBC (0.0-0.012) X10*3/uL Nucleated RBC % (auto) (0.0-0.2) /100WBC Neutrophils % (Manual) (45-73) % Band Neutrophils % (3-5) % Lymphocytes % (Manual) (20-40) % Monocytes % (Manual) (2-11) % Eosinophils % (Manual) (0-4) % Abs Neuts (Manual) (2.0-8.3) X10*3/uL Lymphocytes # (Manual) (1.2-4.9) X10*3/uL Monocytes # (Manual) (0.1-1.2) X10*3/uL Eosinophils # (Manual) (0.0-0.4) X10*3/uL Platelet Estimate (NORMAL) Large Platelets Giant Platelets Plt Morphology Comment RBC Morphology Hypochromasia /OIF Macrocytosis /OIF Ovalocytes /OIF PT 13.6 H (9.9-13.0) SEC INR 1.2 H (0.9-1.1) APTT 38.6 H (24.1-38.0) SEC Sodium 137 (135-145) mmol/L Potassium 5.0 (3.3-5.1) mmol/L Chloride 103 (96-108) mmol/L Carbon Dioxide 27 (22-29) mmol/L Anion Gap 12 (12-20) BUN 23 H (9-16) mg/dL Creatinine 2.03 H (0.5-1.4) mg/dL Estim Creat Clear Calc 20.2 Estimated GFR 24 Random Glucose 97 (60-115) mg/dL Lactic Acid (0.5-2.0) mmol/L Calcium 9.1 (8.4-10.2) mg/dL Total Bilirubin 0.5 (0.0-1.0) mg/dL AST 38 H (5-31) U/L ALT 20 (0-31) U/L Alkaline Phosphatase 99 D (39-117) U/L Troponin I High Sens 26.8 H (<3.5-17.0) ng/L Total Protein 6.3 L (6.5-8.0) g/dL Albumin 3.3 L (3.5-5.0) g/dL Lipase 34 (8-78) U/L Urine Color Urine Appearance Urine pH (5.0-8.0) Ur Specific [place] (1.005-1.025) Urine Protein (NEG-TRACE) MG/DL Urine Glucose (UA) (NEG) MG/DL Urine Ketones (NEG) MG/DL Urine Blood (NEG) Urine Nitrite (NEG) Ur Leukocyte Esterase (NEG) COVID-19 (REYNALDO) (Negative) COVID-19 Clin Com Influenza Type A (JAYLON) (Negative) Influenza Type B (JAYLON) (Negative) Influenza A & B Note 09/02/21 09/02/21 Range/Units 14:03 14:47 WBC (4.8-10.8) X10*3/uL RBC (4.20-5.50) X10*6/uL Hgb (12.0-16.0) g/dl Hct (37.0-47.0) % MCV (80.0-98.0) fL MCH (27.0-33.0) pg MCHC (31.0-35.0) g/dl RDW (11.0-16.0) % Plt Count (160-400) X10*3/uL MPV (9.4-12.3) fL Immature Gran % (Auto) Neut % (Auto) Lymph % (Auto) [place] % (Auto) Eos % (Auto) Baso % (Auto) Lymph # (Auto) [place] # (Auto) Eos # (Auto) Baso # (Auto) Abs Immat Gran (auto) Absolute Neuts (auto) Absolute Nucleated RBC (0.0-0.012) X10*3/uL Nucleated RBC % (auto) (0.0-0.2) /100WBC Neutrophils % (Manual) (45-73) % Band Neutrophils % (3-5) % Lymphocytes % (Manual) (20-40) % Monocytes % (Manual) (2-11) % Eosinophils % (Manual) (0-4) % Abs Neuts (Manual) (2.0-8.3) X10*3/uL Lymphocytes # (Manual) (1.2-4.9) X10*3/uL Monocytes # (Manual) (0.1-1.2) X10*3/uL Eosinophils # (Manual) (0.0-0.4) X10*3/uL Platelet Estimate (NORMAL) Large Platelets Giant Platelets Plt Morphology Comment RBC Morphology Hypochromasia /OIF Macrocytosis /OIF Ovalocytes /OIF PT (9.9-13.0) SEC INR (0.9-1.1) APTT (24.1-38.0) SEC Sodium (135-145) mmol/L Potassium (3.3-5.1) mmol/L Chloride (96-108) mmol/L Carbon Dioxide (22-29) mmol/L Anion Gap (12-20) BUN (9-16) mg/dL Creatinine (0.5-1.4) mg/dL Estim Creat Clear Calc Estimated GFR Random Glucose (60-115) mg/dL Lactic Acid 1.1 (0.5-2.0) mmol/L Calcium (8.4-10.2) mg/dL Total Bilirubin (0.0-1.0) mg/dL AST (5-31) U/L ALT (0-31) U/L Alkaline Phosphatase (39-117) U/L Troponin I High Sens (<3.5-17.0) ng/L Total Protein (6.5-8.0) g/dL Albumin (3.5-5.0) g/dL Lipase (8-78) U/L Urine Color YELLOW Urine Appearance HAZY Urine pH 5.5 (5.0-8.0) Ur Specific [place] 1.025 (1.005-1.025) Urine Protein NEG (NEG-TRACE) MG/DL Urine Glucose (UA) NEG (NEG) MG/DL Urine Ketones NEG (NEG) MG/DL Urine Blood NEG (NEG) Urine Nitrite POS H (NEG) Ur Leukocyte Esterase 2+ H (NEG) COVID-19 (REYNALDO) (Negative) COVID-19 Clin Com Influenza Type A (JAYLON) (Negative) Influenza Type B (JAYLON) (Negative) Influenza A & B Note Discharge Plan Discharge Patient Disposition: Admitted As Inpatient Prescriptions: No Action albuterol sulfate [ProAir HFA] 90 mcg/actuation HFA aerosol inhaler 2 puff inhalation Q6H PRN (Reason: shortness of breath or wheezing) 30 Days Qty: 18 11RF ipratropium-albuterol 0.5 mg-3 mg(2.5 mg base)/3 mL solution for nebulization 3 ml inhalation QID 90 Days Qty: 1080 3RF budesonide 0.5 mg/2 mL suspension for nebulization 0.5 mg inhalation DAILY 90 Days Qty: 180 3RF quetiapine 25 mg tablet 1 tab PO BEDTIME anastrozole 1 mg tablet 1 tab PO DAILY famotidine 40 mg tablet 1 tab PO DAILY meloxicam 7.5 mg tablet 1 tab PO DAILY losartan 100 mg tablet 1 tab PO DAILY pregabalin 25 mg capsule 1 cap PO BID Glucosamine Msm 750 mg bupropion HCl 150 mg tablet sustained-release 12 hr 1 tab PO DAILY ascorbic acid (vitamin C) [Vitamin C] 1,000 mg Tablet 1,000 mg PO DAILY magnesium 250 mg Tablet 250 mg PO DAILY aspirin 81 mg Tablet 81 mg PO DAILY
[2021-09-02] MEDS: 0.9 % Sodium Chloride 1,000 ML 999 ML IV ×2 (13:53→23:37)
--- NOTE | 2021-09-02 14:05 | PC.NURSE ---
pt alert but appears slightly drowsy, pt was able to answer questions appropriately, original did state that the year was 2005 but then said no its 2021, pt states that she feels like she is drunk, denies dizziness, denies pain, moving all extremities without any difficulties, no visual facial droop, hand grasp strong and equal bit did state she was having difficulty when ambualting
[2021-09-02 14:10] LABS: Band Neutrophils Percent 5 % (3-5); Eosinophils Percent Manual 2 % (0-4); Lymphocytes Percent Manual 5 % (20-40); Monocytes Percent Manual 5 % (2-11); Neutrophils Percent Manual 83 % (45-73)
[2021-09-02 14:13] LABS: Giant Platelet PRESENT; Large Platelet PRESENT; Macrocytosis 1+ (5-14) /OIF; Platelet Estimate INCREASED (NORMAL); Platelet Morphology Comment NOTED; RBC Morphology NOTED
[2021-09-02 14:15] LABS: Hypochromasia 1+ (5-14) /OIF; Ovalocytes 1+ (5-14) /OIF
[2021-09-02 14:16] LABS: Eosinophils Absolute Manual 0.2 X10*3/uL (0.0-0.4); Lymphocytes Absolute Manual 0.6 X10*3/uL (1.2-4.9); Monocytes Absolute Manual 0.6 X10*3/uL (0.1-1.2); Neutrophils Absolute Manual 9.8 X10*3/uL (2.0-8.3); White Blood Count 11.1 X10*3/uL (4.8-10.8)
[2021-09-02 14:28] LABS: Lactic Acid 1.1 mmol/L (0.5-2.0)
[2021-09-02 14:54] LABS: Appearance Urine HAZY; Color Urine YELLOW; Glucose Urine UA NEG (NEG); Leukocyte Esterase Urine 2+ (NEG); Nitrite Urine POS (NEG); PH 5.5 (5.0-8.0); Specific Gravity - Urine 1.025 (1.005-1.025); UACC Culture Trigger YES; Urine Blood NEG (NEG); Urine Ketones NEG (NEG); Urine Protein NEG (NEG-TRACE)
[2021-09-02 15:13] LABS: Bacteria Urine 4+ /LPF; Squamous Epithelial Cell Urine 1+ /LPF; Uric Acid Crystals Urine TRACE /LPF; WBC Clumps Urine NOTED
--- NOTE | 2021-09-02 15:33 | ECG_ITS ---
Test Reason : AMS Blood Pressure : / mmHG Vent. Rate : 093 BPM Atrial Rate : 093 BPM P-R Int : 154 ms QRS Dur : 108 ms QT Int : 422 ms P-R-T Axes : 019 -51 050 degrees QTc Int : 524 ms Normal sinus rhythm Left anterior fascicular block Moderate voltage criteria for LVH, may be normal variant ( R in aVL , Galen product ) Prolonged QT Abnormal ECG When compared with ECG of 17-NOV-2019 22:14, Premature ventricular complexes are no longer Present Referred By: Milton Valdez Electronically Signed By:TERELL TOMLIN
[2021-09-02] MEDS: cefTRIAXone sodium 1 GM in 0.9 % Sodium Chloride 50 ML IV (16:17)
--- NOTE | 2021-09-02 16:21 | P.HPHOSP_ITS ---
History of Present Illness Date of Service: 09/02/21 Chief Complaint: Confusion 76 year female with COPD on home O2, HTN, GERD, h/o of cerbral aneurysm s/p clipping, OA of kneeds, h/o breast cancer, local recurrence on anasrazol, h/o thrombocytosis on anagrelide...history mostly given by at bedside who brought her in to be evaluated for altered mental status and unsteady gait. They went to [place] yesterday for vacation when he noted that she was somehow confused and was having trouble with executive functions, this went on until today and therefore they returned home and brought her to the ED. On my evaluation she seemed less confused. Work up has included a head CT showing no acute finding, CXR. ? Pneumonia and UA is grossely positive for UTI, WBC is 11 and is 2.03 today, normal or 0.8 on 08/21. ED treatment: IV Fluid, Azithro, and Ceftriaxone. Review of Systems Review of Systems: Gen: no fever Resp: no sob, no cough CV: no chest, no SAMPSON, no leg edema GI: No n/v, no abd pain Neuro: some confusion, headache Yes all other systems are reviewed and are negative [facility] Medical History Cerebral aneurysm Cerebral infarct Emphysema lung Former smoker GERD (gastroesophageal reflux disease) HTN (hypertension) Neuropathy Osteoarthritis Osteoporosis PVC (premature ventricular contraction) Rheumatic fever Sepsis Thoracic kyphosis Thrombocytosis Pertinent family history: HTN Surgical History H/O bilateral breast reduction surgery H/O breast reconstruction H/O cerebral aneurysm repair H/O right mastectomy Social History Patient Tobacco Use Status: Former Tobacco user Use of substances other than those prescribed or required for medical reasons: No Advance Directives: Yes Advance Directives on File: Yes Advance Directives Date on File: 09/26/20 Meds Allergies Allergy/AdvReac Type Severity Reaction Status Date / Time fluoxetine [From PROZAC] Allergy Intermediate UNKNOWN Unverified 11/25/19 16:42 dexamethasone [From MAXIDEX] Allergy Mild RASH Unverified 11/25/19 16:42 hydrochlorothiazide Allergy Unknown RASH Unverified 11/25/19 16:42 [Hydrochlorothiazide] moxifloxacin [Moxifloxacin] Allergy Unknown RASH Unverified 11/25/19 16:42 Serotonin 5HT-3 Antagonists AdvReac Unknown UNKNOWN Unverified 11/25/19 16:42 [Selective 5-HT3 Receptor Antagonist] trazodone AdvReac Unknown nausea and Verified 01/14/19 00:00 vomiting Tricyclic Compounds AdvReac Unknown UNKNOWN Unverified 11/25/19 16:42 [TRICYCLIC COMPOUNDS] From MAXIDEX Allergy Unknown UNKNOWN Uncoded 11/25/19 16:42 Maxide Allergy Unknown Uncoded 01/14/19 00:00 SSRI(Prozac) Allergy Unknown Uncoded 01/14/19 00:00 TCA(Nortripyline) Allergy Unknown Uncoded 01/14/19 00:00 NORTRIPTILIENE AdvReac Intermediate UNKNOWN Uncoded 11/25/19 16:42 Active Medications: Current Medications Azithromycin 500 mg/ Sodium (Chloride) 250 mls @ 125 mls/hr IV ONCE STA Stop: 09/02/21 17:18 Pharmacy Consult (Consult Rx Perform Med Rec) 1 each MISCELLANE ONCE PRN PRN Reason: Consult order Home Medications Medication Instructions Recorded Confirmed Last Taken Type Glucosamine Msm 750 mg 09/25/20 Unknown History anastrozole 1 mg tablet 1 tab PO DAILY 09/25/20 09/25/20 Unknown History ascorbic acid (vitamin C) 1,000 mg 1,000 mg PO DAILY 09/25/20 09/25/20 Unknown History tablet (Vitamin C) aspirin 81 mg tablet 81 mg PO DAILY 09/25/20 09/25/20 Unknown History famotidine 40 mg tablet 1 tab PO DAILY 09/25/20 09/25/20 Unknown History losartan 100 mg tablet 1 tab PO DAILY 09/25/20 09/25/20 Unknown History magnesium 250 mg tablet 250 mg PO DAILY 09/25/20 09/25/20 Unknown History pregabalin 25 mg capsule 1 cap PO BID 09/25/20 09/25/20 Unknown History quetiapine 25 mg tablet 1 tab PO BEDTIME 09/25/20 09/25/20 Unknown History anagrelide 1 mg capsule 2 cap PO DAILY 09/02/21 Unknown History bupropion HCl 300 mg 24 hr tablet, 1 tab PO DAILY 09/02/21 Unknown History extended release donepezil 5 mg tablet 1 tab PO DAILY 09/02/21 Unknown History Physical Exam Vital Signs and Narrative: Vital Signs: Last Vital Signs Temp 98.4 F 09/02/21 14:48 Pulse 97 09/02/21 14:48 Resp 20 09/02/21 13:58 BP 104/45 L 09/02/21 14:48 Pulse Ox 95 09/02/21 13:58 O2 Del Method 09/02/21 13:58 BMI result Body Mass Index 29.2 Const: Other: Constitutional: Alert, oriented to self, hospital, yearnot date Mental Status: Oriented to person, place and time. Eyes: Pupils are equal, round and reactive to light. Ear, Nose and Throat: Oropharynx clear, mucous membranes moist. Respiratory: Clear to auscultation. No wheezing, rales or rhonchi. Cardiovascular: S1 S2 regular. No murmurs, rubs or gallops. Gastrointestinal: Abdomen soft, non-tender, non-distended. Normal bowel sounds.? Neurologic: Cranial nerves II-XII grossly intact. No focal neurological deficits. Moves all extremities spontaneously.? gait not tested, finger to nose test was ok Skin: No rashes or lesions.? Musculoskeletal: No cyanosis or clubbing. Psychiatric: Normal mood and affect? Results Labs CBC and Chem 7: 09/02/21 13:14 09/02/21 13:14 Assessment and Plan (1) COPD (chronic obstructive pulmonary disease): Status: Acute (2) Acute alteration in mental status: Status: Acute (3) Pneumonia: Qualifiers: Laterality: bilateral Lung location: lower lobe of lung Pneumonia type: due to unspecified organism Qualified Code(s): J18.9 - Pneumonia, unspecified organism Status: Acute (4) Urinary tract infection: Qualifiers: Hematuria presence: without hematuria Urinary tract infection type: site unspecified Qualified Code(s): N39.0 - Urinary tract infection, site not specified Status: Acute (5) Weakness: Status: Acute Plan 76 year old female with history of COPD, h/o cerebral aneurysm, HTN here with confusion and found to have CAT, dehydration, UTI and suspected community acquited penumonia 1/Metabolic encephalopath (confusion)--likely due UTI, CAT and dehydration. CT ok, if not improving get MRI -Treat IV and Abx for PNA -closely monitor 2/ UTI--IV ceftriaxone and follow cultures 3/ CAT--pre renal IVF, repeat in AM if not improving 4/ PNA--Ceftriaxone and Zithro 5/ COPD no acute exacerbation -Duoneb QiD, Oxygen at 3L (baseline) 6/ Thrombocytosis--continue anagrelide 7/ GERD--PPI 8/h/o breast CA--Arimidex 9/DVT-- heparin Admission to [facility] 2 midnight due to metabolic encephalopathy, UTI that needs IV Abx, and CAT that needs IVF, Full code Quality Stroke Does the patient have a stroke diagnosis?: No VTE Prior VTE?: No VTE Risk Level:: Medical - moderate - high VTE Device Contraindication: Treatment Not Indicated VTE Drug Contraindication: N/A - Med Ordered
--- NOTE | 2021-09-02 17:14 | PHA.MEDREC ---
Pharmacy Consult ? Medication Reconciliation Pharmacy has completed the medication reconciliation. Pt's at bedside with medication list.
[2021-09-02] MEDS: Acetaminophen 325 MG TABLET 650 MG PO (17:17)
[2021-09-02] MEDS: Heparin Sodium,Porcine 5,000 UNIT/ML VIAL 5000 UNIT SUBCUT (17:17)
[2021-09-02] MEDS: Azithromycin 500 MG in 0.9 % Sodium Chloride 250 ML 125 MG IV (17:18)
[2021-09-02] MEDS: Dextrose 5 % and 0.45 % NaCl 1,000 ML 100 ML IVCONT (20:02)
[2021-09-02 20:45] LABS: Troponin-I High Sensitivity 22.4 ng/L (<3.5-17.0)
--- NOTE | 2021-09-02 21:37 | PC.NURSE ---
Pts approaching the charge desk reporting frustration that pt has not received her PM medications. Med Rec noted to be completed however medications not added by hospitalist. This RN contacting hospitalist, hospitalist to add medications. This RN obtaining list from pts regarding the medications that pt needs now. MD Majano to add a one time dose for requested PM medications. Pts aware.
[2021-09-02] MEDS: QUEtiapine Fumarate 25 MG TABLET PO (22:02)
[2021-09-02] MEDS: Famotidine 20 MG TABLET 40 MG PO (22:02)
[2021-09-02] MEDS: Magnesium Oxide 400 MG TABLET PO (22:02)
[2021-09-02] MEDS: Pregabalin 25 MG CAPSULE PO (23:28)
--- NOTE | 2021-09-02 23:36 | PC.NURSE ---
This RN contacting hospitalist regarding hypotension. Per hospitalist, plan for 1 liter bolus. Pt assisted into a supine position, IVF infusing per MAR. Continue to monitor.
[2021-09-03] VITALS (12 sets, daily range): BP systolic 104–150; BP diastolic 53–82; PULSE 76–100; RESP 13–20; TEMP 36.2–37; O2SAT 94–98; BMI 29.0
--- NOTE | 2021-09-03 01:26 | PC.NURSE ---
This RN calling [facility] multiple times. [facility] unable to take report. Nursing roving department supervisor aware.
[2021-09-03] MEDS: Heparin Sodium,Porcine 5,000 UNIT/ML VIAL 5000 UNIT SUBCUT ×2 (05:47→19:16)
[2021-09-03 06:56] LABS: MANUAL DIFF FLAG NO
[2021-09-03 07:22] LABS: Basophils Absolute Auto 0.1 X10*3/uL (0.0-0.2); Basophils Percent Auto 0.9 % (0-2); Eosinophils Absolute Auto 0.5 X10*3/uL (0.0-0.4); Eosinophils Percent Auto 5.2 % (0-4); Hematocrit 40.3 % (37.0-47.0); Hemoglobin 13.1 g/dl (12.0-16.0); Imm Gran Abs Auto 0.34 X10*3/uL (0.00-0.03); Imm Gran Pct Auto 3.9 % (0.0-0.4); Lymphocytes Absolute Auto 1.3 X10*3/uL (1.2-4.9); Lymphocytes Percent Auto 14.7 % (20-40); Mean Corpuscular HGB Conc 32.5 g/dl (31.0-35.0); Mean Corpuscular Hemoglobin 33.1 pg (27.0-33.0); Mean Corpuscular Volume 101.8 fL (80.0-98.0); Monocytes Absolute Auto 1.1 X10*3/uL (0.1-1.2); Monocytes Percent Auto 12.8 % (2-11); Neutrophils Absolute Auto 5.4 x10*3/uL (2.0-8.3); Neutrophils Percent Auto 62.5 % (45-73); Platelet Count 341 X10*3/uL (160-400); Red Blood Count 3.96 X10*6/uL (4.20-5.50); Red Cell Distribution Width 15.3 % (11.0-16.0); White Blood Count 8.7 X10*3/uL (4.8-10.8)
[2021-09-03 07:41] LABS: Anion Gap 11 (12-20); Blood Urea Nitrogen 15 mg/dL (9-16); Calcium 8.2 mg/dL (8.4-10.2); Carbon Dioxide 25 mmol/L (22-29); Chloride 111 mmol/L (96-108); Creatinine Clr Calc Pharmacy 35.6; Estimated Glomerular Filt Rate 46; Glucose Random 104 mg/dL (60-115); Potassium 4.9 mmol/L (3.3-5.1); Sodium 142 mmol/L (135-145)
[2021-09-03] MEDS: Albuterol/Iprat 2.5/0.5MG 3 ML AMPUL.NEB INHALE ×4 (07:57→20:34)
--- NOTE | 2021-09-03 10:05 | MHC.CM.PN ---
CM met with Patient at bedside and addressed IMM with her, providing her with the original and placing a copy on the chart. Patient lives in a house with her and Sister and uses a walker at times to assist with mobility. Patient receives her home O2 through [employer] and she prefers not to have VNA unless absolutely necessary. Home is the goal and CM has initiated and will follow for dc planning. Patient has received Covid vax X4 and her PCP is DR. Cricket Allen.
[2021-09-03] MEDS: cefTRIAXone sodium 1 GM in 0.9 % Sodium Chloride 50 ML IV (11:06)
[2021-09-03] MEDS: buPROPion HCl XL 300 MG TAB.ER.24H PO (11:07)
[2021-09-03] MEDS: Famotidine 20 MG TABLET 40 MG PO (11:07)
[2021-09-03] MEDS: Anastrozole 1 MG TABLET PO (11:07)
[2021-09-03] MEDS: Multivitamin TABLET 1 TAB PO (11:07)
[2021-09-03] MEDS: Losartan Potassium 50 MG TABLET 100 MG PO (11:07)
[2021-09-03] MEDS: Aspirin Enteric Coated 81 MG TABLET.DR PO (11:08)
[2021-09-03] MEDS: Donepezil HCl 5 MG TABLET PO (11:08)
[2021-09-03] MEDS: 0.9 % Sodium Chloride Flush 3 ML SYRINGE IVFLUSH ×2 (11:08→20:23)
[2021-09-03] MEDS: Ascorbic Acid 500 MG TABLET 1000 MG PO (11:08)
[2021-09-03] MEDS: Magnesium Oxide 400 MG TABLET 200 MG PO (11:08)
[2021-09-03] MEDS: Pregabalin 25 MG CAPSULE PO ×2 (11:08→20:23)
--- NOTE | 2021-09-03 11:43 | HO.PM.IMPN ---
Subjective Subjective Date of Service: 09/03/21 Interval History: Seen in f/u for encephalopathy d/t UTI, dehydration and renal failire, weakness affecting gait Interval history: She seems better today, able to ambulate to bathroom with aid of walker and , there is still some confusion, her SBP around midnight was 76 and has improved with IVF Review of Systems Gen: no fever Resp: no sob, no cough CV: no chest, no SAMPSON, no leg edema GI: No n/v, no abd pain Neuro: some confusion, headache Physical Exam Vital Signs: Vital Signs: Last Vital Signs Temp 98.3 F 09/03/21 07:33 Pulse 78 09/03/21 11:23 Resp 18 09/03/21 11:23 BP 150/81 H 09/03/21 07:33 Pulse Ox 97 09/03/21 07:33 O2 Del Method 09/03/21 07:33 O2 Flow Rate 3 09/03/21 07:33 BMI result Body Mass Index 29.0 Const: Other: General: Oriented to self, place, difficulty recalling date Resp: faint wheeze, and rales ar right lower base CVS: S1,S2,RRR GI: +BS, NT, no distention Skin: No rash Neuro: motor grossly intact Psych: appropriate affect Objective Data Active Medications Acetaminophen (Acetaminophen 325 Mg Tablet) 650 mg PO Q6H PRN PRN Reason: Pain, Mild (Pain Scale 1-3) Last Admin: 09/02/21 17:17 Dose: 650 mg Documented By: SANAM Albuterol Sulfate (Albuterol Sulfate 90 Mcg 8 Gm Inhaler) 2 puff INHALE Q6H PRN PRN Reason: shortness of breath or wheezing Albuterol/Ipratropium (Albuterol/Iprat 2.5/0.5mg 3 Ml Ampul.Neb) 3 ml INHALE RQ6H WHILE AWAKE [facility] Last Admin: 09/03/21 07:57 Dose: 3 ml Documented By: PEBBLES Albuterol/Ipratropium (Albuterol/Iprat 2.5/0.5mg 3 Ml Ampul.Neb) 3 ml INHALE QID [facility] Last Admin: 09/03/21 11:22 Dose: 3 ml Documented By: PEBBLES Anastrozole (Anastrozole 1 Mg Tablet) 1 mg PO DAILY [facility] Last Admin: 09/03/21 11:07 Dose: 1 mg Documented By: TAY Ascorbic Acid (Ascorbic Acid 500 Mg Tablet) 1,000 mg PO DAILY [facility] Last Admin: 09/03/21 11:08 Dose: 1,000 mg Documented By: TAY Aspirin (Aspirin Enteric Coated 81 Mg Tablet.Dr) 81 mg PO DAILY [facility] Last Admin: 09/03/21 11:08 Dose: 81 mg Documented By: TAY Bupropion HCl (Bupropion Hcl Xl 300 Mg Tab.Er.24h) 300 mg PO DAILY [facility] Last Admin: 09/03/21 11:07 Dose: 300 mg Documented By: TAY Donepezil HCl (Donepezil Hcl 5 Mg Tablet) 5 mg PO DAILY [facility] Last Admin: 09/03/21 11:08 Dose: 5 mg Documented By: TAY Famotidine (Famotidine 20 Mg Tablet) 40 mg PO DAILY [facility] Last Admin: 09/03/21 11:07 Dose: 40 mg Documented By: TAY Heparin Sodium (Porcine) (Heparin Sodium,Porcine 5,000 Unit/Ml Vial) 5,000 unit SUBCUT Q12H [facility] Last Admin: 09/03/21 05:47 Dose: 5,000 unit Documented By: LYN Dextrose/Sodium Chloride (D51/2ns) 1,000 mls @ 100 mls/hr IVCONT .Q10H [facility] Last Admin: 09/03/21 05:14 Dose: Not Given Documented By: LYN Non-Admin Reason: IV Running Azithromycin 500 mg/ Sodium (Chloride) 250 mls @ 125 mls/hr IV Q24H [facility] Ceftriaxone Sodium 1 gm/ (Sodium Chloride) 50 mls @ 100 mls/hr IV Q24H [facility] Last Infusion: 09/03/21 11:40 Dose: 0 mls/hr Documented By: TAY Losartan Potassium (Losartan Potassium 50 Mg Tablet) 100 mg PO DAILY [facility]; Protocol Last Admin: 09/03/21 11:07 Dose: 100 mg Documented By: TAY Magnesium Hydroxide (Milk Of Magnesia 30 Ml Oral.Susp) 30 ml PO DAILY PRN PRN Reason: Constipation Magnesium Oxide (Magnesium Oxide 400 Mg Tablet) 200 mg PO DAILY [facility] Last Admin: 09/03/21 11:08 Dose: 200 mg Documented By: TAY Melatonin (Melatonin 3 Mg Tablet) 6 mg PO BEDTIME PRN PRN Reason: Insomnia Multivitamins/Vitamin C (Multivitamin Tablet) 1 tab PO DAILY [facility] Last Admin: 09/03/21 11:07 Dose: 1 tab Documented By: TAY Non-Formulary Medication (Budesonide) 0.5 mg INHALE DAILY [facility] Non-Formulary Medication (Anagrelide) 2 mg PO DAILY [facility] Pharmacy Consult (Consult Rx Perform Med Rec) 1 each MISCELLANE ONCE PRN PRN Reason: Consult order Pregabalin (Pregabalin 25 Mg Capsule) 25 mg PO BID [facility] Last Admin: 09/03/21 11:08 Dose: 25 mg Documented By: TAY Quetiapine Fumarate (Quetiapine Fumarate 25 Mg Tablet) 25 mg PO BEDTIME [facility] Sodium Chloride (0.9 % Sodium Chloride Flush 3 Ml Syringe) 3 ml IVFLUSH QSHIFT [facility] Last Admin: 09/03/21 11:08 Dose: 3 ml Documented By: TAY Vitamin D (Cholecalciferol (Vitamin D3) 25 Mcg Tablet) 25 mcg PO BEDTIME [facility] Labs CBC & Chem 7: 09/03/21 06:44 09/03/21 06:44 Labs: Laboratory Results - last 24 hr 09/02/21 09/02/21 09/02/21 13:13 13:13 13:14 MCV 98.4 H MCH 31.6 MCHC 32.1 RDW 14.8 Plt Count 405 H D MPV 11.1 Immature Gran % (Auto) Cancelled Neut % (Auto) Cancelled Lymph % (Auto) Cancelled Union % (Auto) Cancelled Eos % (Auto) Cancelled Baso % (Auto) Cancelled Lymph # (Auto) Cancelled [place] # (Auto) Cancelled Eos # (Auto) Cancelled Baso # (Auto) Cancelled Abs Immat Gran (auto) Cancelled Absolute Neuts (auto) Cancelled Absolute Nucleated RBC 0.000 Nucleated RBC % (auto) 0.0 Neutrophils % (Manual) 83 H Band Neutrophils % 5 Lymphocytes % (Manual) 5 L Monocytes % (Manual) 5 Eosinophils % (Manual) 2 Abs Neuts (Manual) 9.8 H Lymphocytes # (Manual) 0.6 L Monocytes # (Manual) 0.6 Eosinophils # (Manual) 0.2 Platelet Estimate INCREASED Large Platelets PRESENT Giant Platelets PRESENT Plt Morphology Comment NOTED RBC Morphology NOTED Hypochromasia 1+ (5-14) Macrocytosis 1+ (5-14) Ovalocytes 1+ (5-14) PT INR APTT Anion Gap Estim Creat Clear Calc Estimated GFR Random Glucose Lactic Acid Calcium Total Bilirubin AST ALT Alkaline Phosphatase Troponin I High Sens Total Protein Albumin Lipase Urine Color Urine Appearance Urine pH Ur Specific [place] Urine Protein Urine Glucose (UA) Urine Ketones Urine Blood Urine Nitrite Ur Leukocyte Esterase Urine RBC Urine WBC Urine WBC Clumps Ur Squamous Epith Cells Uric Acid Crystals Urine Bacteria Urine Mucus Urine Yeast COVID-19 (REYNALDO) Negative COVID-19 Clin Com See Note Influenza Type A (JAYLON) Negative Influenza Type B (JAYLON) Negative Influenza A & B Note See Note 09/02/21 09/02/21 09/02/21 13:14 13:14 13:14 MCV MCH MCHC RDW Plt Count MPV Immature Gran % (Auto) Neut % (Auto) Lymph % (Auto) [place] % (Auto) Eos % (Auto) Baso % (Auto) Lymph # (Auto) Union # (Auto) Eos # (Auto) Baso # (Auto) Abs Immat Gran (auto) Absolute Neuts (auto) Absolute Nucleated RBC Nucleated RBC % (auto) Neutrophils % (Manual) Band Neutrophils % Lymphocytes % (Manual) Monocytes % (Manual) Eosinophils % (Manual) Abs Neuts (Manual) Lymphocytes # (Manual) Monocytes # (Manual) Eosinophils # (Manual) Platelet Estimate Large Platelets Giant Platelets Plt Morphology Comment RBC Morphology Hypochromasia Macrocytosis Ovalocytes PT 13.6 H INR 1.2 H APTT 38.6 H Anion Gap 12 Estim Creat Clear Calc 20.2 Estimated GFR 24 Random Glucose 97 Lactic Acid Calcium 9.1 Total Bilirubin 0.5 AST 38 H ALT 20 Alkaline Phosphatase 99 D Troponin I High Sens 26.8 H Total Protein 6.3 L Albumin 3.3 L Lipase 34 Urine Color Urine Appearance Urine pH Ur Specific [place] Urine Protein Urine Glucose (UA) Urine Ketones Urine Blood Urine Nitrite Ur Leukocyte Esterase Urine RBC Urine WBC Urine WBC Clumps Ur Squamous Epith Cells Uric Acid Crystals Urine Bacteria Urine Mucus Urine Yeast COVID-19 (REYNALDO) COVID-19 Clin Com Influenza Type A (JAYLON) Influenza Type B (JAYLON) Influenza A & B Note 09/02/21 09/02/21 09/02/21 14:03 14:47 20:11 MCV MCH MCHC RDW Plt Count MPV Immature Gran % (Auto) Neut % (Auto) Lymph % (Auto) Union % (Auto) Eos % (Auto) Baso % (Auto) Lymph # (Auto) Union # (Auto) Eos # (Auto) Baso # (Auto) Abs Immat Gran (auto) Absolute Neuts (auto) Absolute Nucleated RBC Nucleated RBC % (auto) Neutrophils % (Manual) Band Neutrophils % Lymphocytes % (Manual) Monocytes % (Manual) Eosinophils % (Manual) Abs Neuts (Manual) Lymphocytes # (Manual) Monocytes # (Manual) Eosinophils # (Manual) Platelet Estimate Large Platelets Giant Platelets Plt Morphology Comment RBC Morphology Hypochromasia Macrocytosis Ovalocytes PT INR APTT Anion Gap Estim Creat Clear Calc Estimated GFR Random Glucose Lactic Acid 1.1 Calcium Total Bilirubin AST ALT Alkaline Phosphatase Troponin I High Sens 22.4 H Total Protein Albumin Lipase Urine Color YELLOW Urine Appearance HAZY Urine pH 5.5 Ur Specific [place] 1.025 Urine Protein NEG Urine Glucose (UA) NEG Urine Ketones NEG Urine Blood NEG Urine Nitrite POS H Ur Leukocyte Esterase 2+ H Urine RBC 1-4 Urine WBC 15-29 H Urine WBC Clumps NOTED Ur Squamous Epith Cells 1+ Uric Acid Crystals TRACE Urine Bacteria 4+ Urine Mucus NONE Urine Yeast TRACE COVID-19 (REYNALDO) COVID-19 Clin Com Influenza Type A (JAYLON) Influenza Type B (JAYLON) Influenza A & B Note 09/03/21 09/03/21 09/03/21 00:03 06:44 06:44 MCV 101.8 H MCH 33.1 H MCHC 32.5 RDW 15.3 Plt Count 341 MPV 11.0 Immature Gran % (Auto) 3.9 H Neut % (Auto) 62.5 Lymph % (Auto) 14.7 L [place] % (Auto) 12.8 H Eos % (Auto) 5.2 H Baso % (Auto) 0.9 Lymph # (Auto) 1.3 [place] # (Auto) 1.1 Eos # (Auto) 0.5 H Baso # (Auto) 0.1 Abs Immat Gran (auto) 0.34 H Absolute Neuts (auto) 5.4 Absolute Nucleated RBC 0.000 Nucleated RBC % (auto) 0.0 Neutrophils % (Manual) Band Neutrophils % Lymphocytes % (Manual) Monocytes % (Manual) Eosinophils % (Manual) Abs Neuts (Manual) Lymphocytes # (Manual) Monocytes # (Manual) Eosinophils # (Manual) Platelet Estimate Large Platelets Giant Platelets Plt Morphology Comment RBC Morphology Hypochromasia Macrocytosis Ovalocytes PT INR APTT Anion Gap 11 L Estim Creat Clear Calc 35.6 Estimated GFR 46 Random Glucose 104 Lactic Acid 1.0 Calcium 8.2 L D Total Bilirubin AST ALT Alkaline Phosphatase Troponin I High Sens Total Protein Albumin Lipase Urine Color Urine Appearance Urine pH Ur Specific [place] Urine Protein Urine Glucose (UA) Urine Ketones Urine Blood Urine Nitrite Ur Leukocyte Esterase Urine RBC Urine WBC Urine WBC Clumps Ur Squamous Epith Cells Uric Acid Crystals Urine Bacteria Urine Mucus Urine Yeast COVID-19 (REYNALDO) COVID-19 Clin Com Influenza Type A (JAYLON) Influenza Type B (JAYLON) Influenza A & B Note Assessment and Plan (1) COPD (chronic obstructive pulmonary disease): Status: Acute (2) Acute alteration in mental status: Status: Acute (3) Weakness: Status: Acute (4) Pneumonia: Status: Acute (5) Urinary tract infection: Status: Acute Plan 76 year old female with history of COPD, h/o cerebral aneurysm, HTN here with confusion and found to have CAT, dehydration, UTI and suspected community acquited penumonia 1/Metabolic encephalopath (confusion)--likely due UTI, CAT and dehydration. CT head ok, hold off further testing or eval at this time and continue treating underlying issues 2/ UTI--IV ceftriaxone D2 and follow cultures\ Hypotension--likely combination of sepsis and dehydration, resolved 3/ CAT--pre renal azoetemia, resolved Cr now 1.15 down from 2.03 4/ PNA--Ceftriaxone and Zithro, clinically better, WBD is normal, no hypoxia, no fever, continue baseline home O2 5/ COPD no acute exacerbation -Duoneb QiD, Oxygen at 3L (baseline) 6/ Thrombocytosis--continue anagrelide 7/ GERD--PPI 8/h/o breast CA--Arimidex 9/DVT-- heparin Need for inpatient need for IV Abx for treatment of UTI, renal failure causing encephalopathy not yet fully resolved PT eval Full code Quality Stroke Does the patient have a stroke diagnosis?: No VTE Prior VTE?: No VTE Risk Level:: Medical - moderate - high VTE Device Contraindication: Treatment Not Indicated VTE Drug Contraindication: N/A - Med Ordered
[2021-09-03] MEDS: Azithromycin 500 MG in 0.9 % Sodium Chloride 250 ML 125 MG IV (11:48)
--- NOTE | 2021-09-03 15:39 | MHC.CM.PN ---
PT is recommending home with new VNA; referral made accordingly. CM will follow.
--- NOTE | 2021-09-03 15:58 | MHC.CM.PN ---
[facility] does not have a contract with [facility]; CM has reached out to other VNAs to find a [facility] contracted VNA that is able to accept Patient. CM will follow.
[2021-09-03] MEDS: Dextrose 5 % and 0.45 % NaCl 1,000 ML 100 ML IVCONT (20:22)
[2021-09-03] MEDS: QUEtiapine Fumarate 25 MG TABLET PO (20:23)
[2021-09-03] MEDS: Cholecalciferol (Vitamin D3) 25 MCG TABLET PO (20:23)
[2021-09-03] MEDS: Acetaminophen 325 MG TABLET 650 MG PO (22:49)
[2021-09-04] VITALS (12 sets, daily range): BP systolic 137–168; BP diastolic 70–86; PULSE 76–95; RESP 15–22; TEMP 36.2–37.6; O2SAT 94–100
[2021-09-04] MEDS: Heparin Sodium,Porcine 5,000 UNIT/ML VIAL 5000 UNIT SUBCUT ×2 (06:18→17:30)
[2021-09-04] MEDS: Dextrose 5 % and 0.45 % NaCl 1,000 ML 100 ML IVCONT (06:18)
[2021-09-04] MEDS: Albuterol/Iprat 2.5/0.5MG 3 ML AMPUL.NEB INHALE ×4 (08:30→19:07)
[2021-09-04] MEDS: 0.9 % Sodium Chloride Flush 3 ML SYRINGE IVFLUSH ×3 (08:45→20:03)
[2021-09-04] MEDS: buPROPion HCl XL 300 MG TAB.ER.24H PO (08:45)
[2021-09-04] MEDS: Aspirin Enteric Coated 81 MG TABLET.DR PO (08:45)
[2021-09-04] MEDS: Famotidine 20 MG TABLET 40 MG PO (08:45)
[2021-09-04] MEDS: Donepezil HCl 5 MG TABLET PO (08:45)
[2021-09-04] MEDS: Anastrozole 1 MG TABLET PO (08:46)
[2021-09-04] MEDS: Pregabalin 25 MG CAPSULE PO ×2 (08:47→20:03)
[2021-09-04] MEDS: Ascorbic Acid 500 MG TABLET 1000 MG PO (08:47)
[2021-09-04] MEDS: Multivitamin TABLET 1 TAB PO (08:48)
[2021-09-04] MEDS: Magnesium Oxide 400 MG TABLET 200 MG PO (08:48)
[2021-09-04] MEDS: Losartan Potassium 50 MG TABLET 100 MG PO (08:48)
[2021-09-04] MEDS: cefTRIAXone sodium 1 GM in 0.9 % Sodium Chloride 50 ML IV (08:58)
[2021-09-04] MEDS: Azithromycin 500 MG in 0.9 % Sodium Chloride 250 ML 125 MG IV (09:39)
--- NOTE | 2021-09-04 10:59 | HO.PM.IMPN ---
Subjective Subjective Date of Service: 09/04/21 Physical Exam Vital Signs: Vital Signs: Last Vital Signs Temp 97.7 F 09/04/21 07:48 Pulse 92 09/04/21 10:52 Resp 22 H 09/04/21 08:31 BP 168/84 H 09/04/21 07:48 Pulse Ox 97 09/04/21 07:48 O2 Del Method 09/04/21 07:48 O2 Flow Rate 3 09/04/21 07:48 BMI result Body Mass Index 29.0 Objective Data Active Medications Acetaminophen (Acetaminophen 325 Mg Tablet) 650 mg PO Q6H PRN PRN Reason: Pain, Mild (Pain Scale 1-3) Last Admin: 09/03/21 22:49 Dose: 650 mg Documented By: ETELVINA Albuterol Sulfate (Albuterol Sulfate 90 Mcg 8 Gm Inhaler) 2 puff INHALE Q6H PRN PRN Reason: shortness of breath or wheezing Albuterol/Ipratropium (Albuterol/Iprat 2.5/0.5mg 3 Ml Ampul.Neb) 3 ml INHALE QID [facility] Last Admin: 09/04/21 08:30 Dose: 3 ml Documented By: LCUIANO Anastrozole (Anastrozole 1 Mg Tablet) 1 mg PO DAILY [facility] Last Admin: 09/04/21 08:46 Dose: 1 mg Documented By: DEO Ascorbic Acid (Ascorbic Acid 500 Mg Tablet) 1,000 mg PO DAILY [facility] Last Admin: 09/04/21 08:47 Dose: 1,000 mg Documented By: DEO Aspirin (Aspirin Enteric Coated 81 Mg Tablet.) 81 mg PO DAILY [facility] Last Admin: 09/04/21 08:45 Dose: 81 mg Documented By: DEO Bupropion HCl (Bupropion Hcl Xl 300 Mg Tab.Er.24h) 300 mg PO DAILY [facility] Last Admin: 09/04/21 08:45 Dose: 300 mg Documented By: DEO Donepezil HCl (Donepezil Hcl 5 Mg Tablet) 5 mg PO DAILY [facility] Last Admin: 09/04/21 08:45 Dose: 5 mg Documented By: DEO Famotidine (Famotidine 20 Mg Tablet) 40 mg PO DAILY [facility] Last Admin: 09/04/21 08:45 Dose: 40 mg Documented By: DEO Heparin Sodium (Porcine) (Heparin Sodium,Porcine 5,000 Unit/Ml Vial) 5,000 unit SUBCUT Q12H [facility] Last Admin: 09/04/21 06:18 Dose: 5,000 unit Documented By: ETELVINA Dextrose/Sodium Chloride (D51/2ns) 1,000 mls @ 100 mls/hr IVCONT .Q10H [facility] Last Admin: 09/04/21 09:13 Dose: Not Given Documented By: DEO Non-Admin Reason: STOP PER Azithromycin 500 mg/ Sodium (Chloride) 250 mls @ 125 mls/hr IV Q24H [facility] Last Admin: 09/04/21 09:39 Dose: 125 mls/hr Documented By: DEO Ceftriaxone Sodium 1 gm/ (Sodium Chloride) 50 mls @ 100 mls/hr IV Q24H [facility] Last Admin: 09/04/21 08:58 Dose: 100 mls/hr Documented By: DEO Losartan Potassium (Losartan Potassium 50 Mg Tablet) 100 mg PO DAILY [facility]; Protocol Last Admin: 09/04/21 08:48 Dose: 100 mg Documented By: DEO Magnesium Hydroxide (Milk Of Magnesia 30 Ml Oral.Susp) 30 ml PO DAILY PRN PRN Reason: Constipation Magnesium Oxide (Magnesium Oxide 400 Mg Tablet) 200 mg PO DAILY [facility] Last Admin: 09/04/21 08:48 Dose: 200 mg Documented By: DEO Melatonin (Melatonin 3 Mg Tablet) 6 mg PO BEDTIME PRN PRN Reason: Insomnia Multivitamins/Vitamin C (Multivitamin Tablet) 1 tab PO DAILY [facility] Last Admin: 09/04/21 08:48 Dose: 1 tab Documented By: DEO Non-Formulary Medication (Budesonide) 0.5 mg INHALE DAILY [facility] Non-Formulary Medication (Anagrelide) 2 mg PO DAILY [facility] Pharmacy Consult (Consult Rx Perform Med Rec) 1 each MISCELLANE ONCE PRN PRN Reason: Consult order Pregabalin (Pregabalin 25 Mg Capsule) 25 mg PO BID [facility] Last Admin: 09/04/21 08:47 Dose: 25 mg Documented By: DEO Quetiapine Fumarate (Quetiapine Fumarate 25 Mg Tablet) 25 mg PO BEDTIME [facility] Last Admin: 09/03/21 20:23 Dose: 25 mg Documented By: ETELVINA Sodium Chloride (0.9 % Sodium Chloride Flush 3 Ml Syringe) 3 ml IVFLUSH QSHIFT [facility] Last Admin: 09/04/21 08:45 Dose: 3 ml Documented By: DEO Vitamin D (Cholecalciferol (Vitamin D3) 25 Mcg Tablet) 25 mcg PO BEDTIME [facility] Last Admin: 09/03/21 20:23 Dose: 25 mcg Documented By: ETELVINA Labs CBC & Chem 7: 09/03/21 06:44 09/03/21 06:44 Microbiology Microbiology Results: Microbiology 09/02/21 Unknown Urine Culture - Preliminary Urine Catheterized - Carlton Catheter Gram negative navarro 09/02/21 14:03 Blood Culture - Preliminary Blood - Venous No growth after 24 hours. 09/02/21 13:13 Blood Culture - Preliminary Blood - Venous No growth after 24 hours. Assessment and Plan (1) COPD (chronic obstructive pulmonary disease): Status: Acute (2) Acute alteration in mental status: Status: Acute (3) Weakness: Status: Acute (4) Pneumonia: Status: Acute (5) Urinary tract infection: Status: Acute Plan 76 year old female with history of COPD, h/o cerebral aneurysm, HTN here with confusion and found to have CAT, dehydration, UTI and suspected community acquited penumonia 1/Metabolic encephalopath (confusion)--likely due UTI, CAT and dehydration. CT head ok, nearly back to baseline 2/ UTI--IV ceftriaxone D3, culture growing negative navarro HypOtension--likely combination of sepsis and dehydration, resolved 3/ CAT--pre renal azoetemia, resolved Cr now 1.15 down from 2.03 4/ PNA--Ceftriaxone and Zithro, had increased cough this morning, reassess with chest CT 5/ COPD no acute exacerbation -Duoneb QiD, Oxygen at 3L (baseline) 6/ Thrombocytosis--continue anagrelide 7/ GERD--PPI 8/h/o breast CA--Arimidex 9/DVT-- heparin Need for inpatient need for IV Abx for treatment of UTI, renal failure causing encephalopathy not yet fully resolved PT eval Full code Dispo: 1 to 2 days Quality Stroke Does the patient have a stroke diagnosis?: No VTE Prior VTE?: No VTE Risk Level:: Medical - moderate - high VTE Device Contraindication: Treatment Not Indicated VTE Drug Contraindication: N/A - Med Ordered
[2021-09-04 11:49] LABS: B Type Natriuretic Peptide 1259 pg/mL (<100)
[2021-09-04 12:45] LABS: Anion Gap 13 (12-20); Blood Urea Nitrogen 8 mg/dL (9-16); Calcium 8.3 mg/dL (8.4-10.2); Carbon Dioxide 25 mmol/L (22-29); Chloride 111 mmol/L (96-108); Estimated Glomerular Filt Rate > 60; Glucose Random 87 mg/dL (60-115); Potassium 4.6 mmol/L (3.3-5.1); Sodium 144 mmol/L (135-145)
[2021-09-04] MEDS: QUEtiapine Fumarate 25 MG TABLET PO (20:03)
[2021-09-04] MEDS: Cholecalciferol (Vitamin D3) 25 MCG TABLET PO (20:03)
[2021-09-04] MEDS: Acetaminophen 325 MG TABLET 650 MG PO (23:37)
[2021-09-05 04:29] VITALS: BP 173/89; PULSE 88; RESP 20; TEMP 36.7; O2SAT 95
[2021-09-05] MEDS: Heparin Sodium,Porcine 5,000 UNIT/ML VIAL 5000 UNIT SUBCUT (04:44)
[2021-09-05 07:31] VITALS: PULSE 94; RESP 16; O2SAT 98
[2021-09-05] MEDS: Albuterol/Iprat 2.5/0.5MG 3 ML AMPUL.NEB INHALE ×2 (07:31→11:13)
[2021-09-05 08:00] VITALS: BP 148/87; PULSE 88; RESP 12; TEMP 36.9; O2SAT 97
[2021-09-05] MEDS: Aspirin Enteric Coated 81 MG TABLET.DR PO (09:25)
[2021-09-05] MEDS: buPROPion HCl XL 300 MG TAB.ER.24H PO (09:25)
[2021-09-05] MEDS: Donepezil HCl 5 MG TABLET PO (09:25)
[2021-09-05] MEDS: Famotidine 20 MG TABLET 40 MG PO (09:25)
[2021-09-05] MEDS: Anastrozole 1 MG TABLET PO (09:26)
[2021-09-05] MEDS: cefTRIAXone sodium 1 GM in 0.9 % Sodium Chloride 50 ML IV (09:26)
[2021-09-05] MEDS: Ascorbic Acid 500 MG TABLET 1000 MG PO (09:26)
[2021-09-05] MEDS: Magnesium Oxide 400 MG TABLET 200 MG PO (09:26)
[2021-09-05] MEDS: Pregabalin 25 MG CAPSULE PO (09:26)
[2021-09-05] MEDS: Losartan Potassium 50 MG TABLET 100 MG PO (09:26)
[2021-09-05] MEDS: 0.9 % Sodium Chloride Flush 3 ML SYRINGE IVFLUSH (09:26)
[2021-09-05] MEDS: Multivitamin TABLET 1 TAB PO (09:26)
[2021-09-05] MEDS: Azithromycin 500 MG in 0.9 % Sodium Chloride 250 ML 125 MG IV (10:31)
[2021-09-05 11:13] VITALS: PULSE 90; RESP 14; O2SAT 94
[2021-09-05 11:59] VITALS: BP 168/88; PULSE 91; RESP 16; TEMP 36.9; O2SAT 98
--- NOTE | 2021-09-05 12:20 | P.CDIC_ITS ---
CDI Concurrent Query Documentation Clarification: PHYSICIAN'S DOCUMENTATION REQUEST Date of Query: 09/05/21 1221 Patient Name: Ibis Cruz Admit Date: 09/02/21 Dear Doctor, A review of the medical record indicates additional documentation may be needed. Please review below and update the documentation accordingly. Clinical Indicators: Documentation on progress note dated 09/03/21 included the diagnosis of sepsis. The patient's infectious clinical indicators include: Risk Factors/Clinical Indicators/Treatments WBC 11.1 LA 1.1 T 98.4, 97, 20, 104/45 Per H&P: Pneumonia, UTI Treated with IV Azithromycin, Ceftriaxone Per MD progress note 09/03/21: Hypotension--likely combination of sepsis and dehydration, resolved Recognized standard criteria for this condition and other infectious definitions includes: Sepsis Systemic manifestations of infection, with 2 or more SIRS criteria which include: * Fever > 100.4?F or hypothermia < 96.8?F * Leukocytosis ? WBC > 12,000 or leukopenia, WBC < 4,000, or > 10% bands * Tachycardia- > 90 beats/minute * Tachypnea- RR > 20 breaths/minute or PaCO2 < 32mmHg Source: [employer]ck Manual 2013 Documentation should include the known or suspected organism, and the underlying infection, such as UTI or pneumonia Based on the above information and the recognized standard for sepsis, could you please clarify in the Progress Notes if this diagnoses is still accurate and reflective of the patient's condition to ensure quality of the medical record. * Sepsis is/was present on admission and is a clinical diagnosis based on (please include this additional support in the medical record) * After study Sepsis has been ruled out * Other (please specify) * Unable to determine Use of terms such as suspected, likely, concern for, or probable (associated with a specific diagnosis that is being evaluated, monitored, or treated as if it exists) are acceptable and can be coded in the inpatient setting, when documented at the time of discharge. Thank you, Sola Hughes RN Extension: [phone] Please use your independent medical judgment in providing your response. THIS QUERY IS PART OF THE PERMANENT MEDICAL RECORD Provider Response: Other Other Diagnosis: Sepsis has been ruled out
--- NOTE | 2021-09-05 13:13 | MHC.CM.PN ---
Per MD, Patient is medically cleared for dc to home today, with services. Patient and family (Daughter/Amy @ [phone]) are agreeable to Janie ARTHUR, who has been notified of today's dc. Last IMM addressed on 09/03/21.
[2021-09-05 14:46] VITALS: BP 168/88; PULSE 91; O2SAT 98
--- NOTE | 2021-09-05 14:47 | PM.DS ---
DS: Providers Provider Date of Service: 09/05/21 Date of admission: 09/02/21 16:49 Date of discharge: 09/05/21 Primary care physician: Cricket Allen MD DS: Diagnosis Discharge Diagnosis (1) COPD (chronic obstructive pulmonary disease): Status: Acute (2) Acute alteration in mental status: Status: Acute (3) Weakness: Status: Acute (4) Pneumonia: Status: Acute (5) Urinary tract infection: Status: Acute DS: Summary Hospital Course Hospital Course: 76 year female with COPD on home O2, HTN, GERD,? h/o of cerbral aneurysm s/p clipping,? OA of kneeds, h/o breast cancer, local recurrence on anasrazol, h/o thrombocytosis on anagrelide...history mostly given by at bedside who brought her in to be evaluated for altered mental status and unsteady gait. They went to [place] yesterday for vacation when he noted that she was somehow confused and was having trouble with executive functions, this went on until today and therefore they returned home and brought her to the ED. Work up has included a head CT showing no acute finding, CXR. ? Pneumonia and UA is grossely positive for UTI, WBC is 11 and is 2.03 today, normal or 0.8 on 08/21. ED treatment: IV Fluid, Azithro, and Ceftriaxone.? Hospital course Patient admitted to hospital given IV ceftriaxone azithromycin; DuoNeb therapies and IV fluids. Over the course of the next 48 hours patient improved dramatically with mental status returning to baseline. Urine preliminary greater than 100,000 gram-negative rods. She will be discharged home to complete a course of Ceftin /prednisone taper and follow-up with complete urine sensitivities. Time Spent with Patient Time attestation: Total time spent providing and/or coordinating discharge services: Discharge coordination time: Greater than 30 minutes Quality: Safe Use of Opioids Does Pt have an Active Cancer Diagnosis on the Problem List?: No Quality: Stroke Does the patient have a stroke diagnosis?: No Physical Exam Vital Signs: Vital Signs: Last Vital Signs Temp 98.4 F 09/05/21 11:59 Pulse 91 09/05/21 11:59 Resp 16 09/05/21 11:59 BP 168/88 H 09/05/21 11:59 Pulse Ox 98 09/05/21 11:59 O2 Del Method 09/05/21 11:59 O2 Flow Rate 3 09/05/21 11:59 BMI result Body Mass Index 29.0 Const: Other: Awake alert oriented x3 no acute distress Resp: Other: Diminished with scattered expiratory wheezes Cardio: Other: No S4; positive S1-S2; no S3 murmurs rubs or gallops GI: Other: Soft nontender nondistended with normoactive bowel sounds Extrem: Other: No edema bilaterally DS: Data Data Completed and Pending Labs on day of discharge: Preliminary micro results at discharge 09/02/21 Unknown Urine Culture - Preliminary Urine Catheterized - Carlton Catheter Gram negative navarro 09/02/21 14:03 Blood Culture - Preliminary Blood - Venous No growth after 48 hours. 09/02/21 13:13 Blood Culture - Preliminary Blood - Venous No growth after 48 hours. Discharge Plan Discharge Patient Disposition: Home Health Service Discharge Diagnosis: Metabolic encephalopathy Referrals: Janie [Outside] - 1 Week Cricket Allen MD [Primary Care Provider] - 1 Week Discharge Medications: New cefuroxime axetil 500 mg tablet 500 mg PO BID 10 Days Qty: 20 0RF prednisone 10 mg tablet See Rx Instructions .Route .COMPLEX Qty: 45 0RF Rx Instructions: 10 mg orally; 5 tabs p.o. daily x3 days; 4 tabs p.o. daily x3 days; 3 tabs daily x3 days; 2 tabs daily x3 days; 1 tab daily x3 days Continued albuterol sulfate [ProAir HFA] 90 mcg/actuation HFA aerosol inhaler 2 puff inhalation Q6H PRN (Reason: shortness of breath or wheezing) 30 Days Qty: 18 11RF ipratropium-albuterol 0.5 mg-3 mg(2.5 mg base)/3 mL solution for nebulization 3 ml inhalation QID 90 Days Qty: 1080 3RF budesonide 0.5 mg/2 mL suspension for nebulization 0.5 mg inhalation DAILY 90 Days Qty: 180 3RF quetiapine 25 mg tablet 1 tab PO BEDTIME anastrozole 1 mg tablet 1 tab PO DAILY famotidine 40 mg tablet 1 tab PO DAILY losartan 100 mg tablet 1 tab PO DAILY pregabalin 25 mg capsule 1 cap PO BID ascorbic acid (vitamin C) [Vitamin C] 1,000 mg Tablet 1,000 mg PO DAILY magnesium 250 mg Tablet 250 mg PO DAILY donepezil 5 mg tablet 1 tab PO DAILY bupropion HCl 300 mg tablet extended release 24 hr 1 tab PO DAILY multivitamin Tablet 1 tab PO DAILY aspirin 81 mg Tablet,Delayed Release (Dr/Ec) 81 mg PO DAILY cholecalciferol (vitamin D3) 25 mcg (1,000 unit) Tablet 25 mcg PO BEDTIME anagrelide 1 mg capsule 2 mg PO DAILY Discharge Orders: Discharge Order (Routine); Ordered 09/05/21 Ordered By: Js Winkler Diet: Advance to usual diet Activity on Discharge: As tolerated Stand Alone Forms: Patient Portal Discharge page Care Plan Goals: Complete course of Ceftin 500 mg twice a day for 10 days along with prednisone taper Health Concerns: Continue all medications and treatment as before hospital admission Plan of Treatment: Follow-up with your PCP in 2 weeks Assessment: See discharge summary
--- NOTE | 2021-09-05 16:04 | P.F2F_ITS ---
Service Date Service Date: 09/05/21 Encounter Date of encounter: 09/05/21 Encounter: Acute hospitalization Reasons for Services Signs and symptoms assessed: Will need residential service to monitor respiratory status and response to therapies Reason for residential: medication management and other (Monitoring of oxygen saturation) Homebound: Leaving the home is medically contraindicated at this time without the asist of a device and/or another person due th the listed conditions above and below. Reason homebound: unsteady gait / fall risk and shortness of breath with minimal effort Certification: Based on the above findings, I certify that this patient is confined to the home and needs intermittent residential care, physical therapy and/or speech therapy, or continues to need occupational therapy. The patient is under my care, and I have initiated the establishment of the plan of care. The patient will be followed by a physician who will periodically review the plan of care.
== END 2021-09-05 19:49 | disposition home health service (06) | DRG 682 ==
LOC: HO.ED 15:44 → HO.EDOVER 16:54 → HO.IMC 23:45
PROVIDERS: Hospitalist; Admitting Provider Internal Medicine; Emergency Provider Emergency Medicine Emergency Medical Services; PCP Internal Medicine Medical Oncology; Visit Provider Hospitalist
DX: N17.9 Acute kidney failure, unspecified (principal); J18.9 Pneumonia, unspecified organism; J44.0 Chronic obstructive pulmonary disease with (acute) lower respiratory infection; N39.0 Urinary tract infection, site not specified; C50.911 Malignant neoplasm of unspecified site of right female breast; E86.0 Dehydration; D75.839 Thrombocytosis, unspecified; M19.90 Unspecified osteoarthritis, unspecified site; K21.9 Gastro-esophageal reflux disease without esophagitis; Z20.822 Contact with and (suspected) exposure to COVID-19; Z90.11 Acquired absence of right breast and nipple; Z86.73 Personal history of transient ischemic attack (TIA), and cerebral infarction without residual deficits; Z99.81 Dependence on supplemental oxygen; Z87.891 Personal history of nicotine dependence; Z88.8 Allergy status to other drugs, medicaments and biological substances; Z79.82 Long term (current) use of aspirin; Z79.811 Long term (current) use of aromatase inhibitors; Z79.899 Other long term (current) drug therapy
CPT/HCPCS: 36415; 70450; 71045; 71250; 80048; 80053; 81001; 83605; 83690; 83880; 84484; 85007; 85025; 85027; 85610; 85730; 87040; 87086; 87088; 87502; 87635; 93005; 94640; 96361; 96365; 96367; 97110; 97116; 97162; 99285; J0456; J0696

== ENCOUNTER 2021-09-24 22:00 | Outpatient (REF) | payer MEDICARE, SELFPAY ==
[2021-09-25 10:50] LABS: Appearance Urine CLEAR; Color Urine STRAW; Glucose Urine UA NEG (NEG); Leukocyte Esterase Urine NEG (NEG); Nitrite Urine NEG (NEG); PH 6.5 (5.0-8.0); Specific Gravity - Urine <= 1.005 (1.005-1.025); Urine Blood NEG (NEG); Urine Ketones NEG (NEG); Urine Protein NEG (NEG-TRACE)
== END 2021-09-24 22:01 | disposition home or self-care (01) ==
LOC: HO.10HDLNP 22:00
PROVIDERS: Family Medicine; Absent Provider Internal Medicine Medical Oncology; Visit Provider Student in an Organized Health Care Education/Training Program
DX: R50.9 Fever, unspecified (principal); Z66 Do not resuscitate
CPT/HCPCS: 81003; 87086

== ENCOUNTER 2022-02-02 12:28 | Outpatient (REF) | payer MEDICARE, SELFPAY ==
--- NOTE | ~2022-02-02 | XR_ITS ---
EXAMINATION: XR CHEST CLINICAL INFORMATION: COPD and Bilateral Rales COMPARISON: Chest 09/02/2021 TECHNIQUE: 2 views of the chest were obtained. FINDINGS: The lungs are well-expanded without acute pneumonic consolidation. Increase interstitial markings likely underlying chronic changes. Heart size is enlarged with mild increased vascularity is noted likely mild congestion. No gross bony abnormality. XR/XR chest 2V IMPRESSION: Cardiomegaly with mild pulmonary vascular congestion. There is mild underlying chronic interstitial changes.
== END 2022-02-02 12:29 | disposition home or self-care (01) ==
LOC: HO.XRAY 12:28
PROVIDERS: PCP Internal Medicine Medical Oncology; Visit Provider Family Medicine
DX: J44.9 Chronic obstructive pulmonary disease, unspecified (principal); R09.89 Other specified symptoms and signs involving the circulatory and respiratory systems
CPT/HCPCS: 71046

== ENCOUNTER 2022-02-04 10:20 | Outpatient (REF) | payer MEDICARE, SELFPAY ==
[2022-02-04 11:35] LABS: Appearance Urine Clear; Color Urine Yellow; Glucose Urine UA Negative (Negative); Leukocyte Esterase Urine Negative (Negative); Nitrite Urine Negative (Negative); PH 7.5 (5.0-9.0); Specific Gravity - Urine 1.015 (1.005-1.025); Urine Blood Negative (Negative); Urine Ketones Negative (Negative); Urine Protein Negative (Neg-Trace)
== END 2022-02-04 10:21 | disposition home or self-care (01) ==
LOC: HO.10HDLNP 10:20
PROVIDERS: Absent Provider Internal Medicine Medical Oncology; Visit Provider Family Medicine
DX: R50.9 Fever, unspecified (principal)
CPT/HCPCS: 81003; 87086

== ENCOUNTER 2022-02-27 15:30 | Outpatient (REF) | payer MEDICARE, SELFPAY ==
[2022-02-27 16:27] LABS: ABG Refer to POC result
[2022-02-27 16:28] LABS: ABG Base Excess 3.2 mmol/L; ABG HCO3 26 mmol/L (22-26); ABG pCO2 34 mmHg (32-45); ABG pH 7.48 (7.35-7.45); ABG pO2 94 mmHg (83-108)
[2022-02-27 16:44] LABS: Hematocrit 39.9 % (37.0-47.0); Mean Corpuscular HGB Conc 32.6 g/dl (31.0-35.0); Mean Corpuscular Hemoglobin 29.1 pg (27.0-33.0); Mean Corpuscular Volume 89.5 fL (80.0-98.0); Mean Platelet Volume 11.9 fL (9.4-12.3); Platelet Count 342 X10*3/uL (160-400); Red Blood Count 4.46 X10*6/uL (4.20-5.50); Red Cell Distribution Width 17.9 % (11.0-16.0)
[2022-02-27 17:16] LABS: Alanine Aminotransferase 22 U/L (0-31); Albumin Level 3.7 g/dL (3.5-5.0); Alkaline Phosphatase 100 U/L (39-117); Anion Gap 14 (12-20); Aspartate Amino Transferase 35 U/L (5-31); Bilirubin Total 0.8 mg/dL (0.0-1.0); Blood Urea Nitrogen 19 mg/dL (9-16); Carbon Dioxide 27 mmol/L (22-29); Chloride 104 mmol/L (96-108); Estimated Glomerular Filt Rate 41; Glucose Random 80 mg/dL (60-115); Potassium 4.3 mmol/L (3.3-5.1); Sodium 141 mmol/L (135-145); Vitamin D 25-OH Total 68.5 ng/mL (>30)
[2022-02-27 17:40] LABS: WBC ABN SCTR FOR CBC 1
[2022-02-27 17:58] LABS: Atypical Lymphs Percent Manual 1 % (0-6); Band Neutrophils Percent 15 % (3-5); Basophils Percent Manual 1 % (0-2); Eosinophils Percent Manual 2 % (0-4); Lymphocytes Percent Manual 8 % (20-40); Monocytes Percent Manual 6 % (2-11); Neutrophils Percent Manual 67 % (45-73)
[2022-02-27 18:00] LABS: Giant Platelet PRESENT; Large Platelet PRESENT; Platelet Estimate NORMAL (NORMAL); Platelet Morphology Comment NOTED; RBC Morphology NOTED
[2022-02-27 18:01] LABS: Atypical Lymph Absolute Manual 0.1 x10*3/uL; Basophils Abs Manual 0.1 X10*3/uL (0.0-0.2); Burr Cells 2+ (3-5) /OIF; Eosinophils Absolute Manual 0.3 X10*3/uL (0.0-0.4); Lymphocytes Absolute Manual 1.1 X10*3/uL (1.2-4.9); Monocytes Absolute Manual 0.8 X10*3/uL (0.1-1.2); Neutrophils Absolute Manual 11.4 X10*3/uL (2.0-8.3); Ovalocytes 1+ (5-14) /OIF; Schistocytes 1+ (0-2) /OIF; White Blood Count 13.9 X10*3/uL (4.8-10.8)
[2022-03-01 09:03] LABS: CA 27.29 37 U/mL (<38)
== END 2022-02-27 15:31 | disposition home or self-care (01) ==
LOC: HO.LAB 15:30
PROVIDERS: Hospitalist; Visit Provider Internal Medicine Medical Oncology
DX: J44.9 Chronic obstructive pulmonary disease, unspecified (principal); E78.5 Hyperlipidemia, unspecified; E66.3 Overweight; D45 Polycythemia vera; D47.3 Essential (hemorrhagic) thrombocythemia
CPT/HCPCS: 36415; 80053; 82306; 82803; 84134; 85007; 85025; 85027; 86300

== ENCOUNTER → 2022-03-28 15:31 | Outpatient (BNVA) | payer MEDICARE, SELFPAY | PROVIDERS: PCP Internal Medicine Medical Oncology; Visit Provider Hospitalist | DX: J43.2 Centrilobular emphysema (principal); J96.11 Chronic respiratory failure with hypoxia; I51.7 Cardiomegaly | CPT/HCPCS: 99212 ==

== ENCOUNTER → 2022-04-16 07:33 | Outpatient (REF) | payer MEDICARE, SELFPAY ==
--- NOTE | 2022-04-16 07:43 | CA_ITS ---
Transthoracic Echocardiogram Patient (Last, First, Middle): Ibis Cruz E Gender: Female Date of : 1945 Age: 77 Procedure Date: 04/16/2022 Procedure Type: Transthoracic Echocardiogram Location: OP Height: 147.32 cm Weight: 54.43 kg BSA: 1.47 m2 Heart Rate: bpm BP: 110 / 65 mmHg Second Baker: AMOR Referring MD: Cricket Allen MD Balloon Maker: Jere Vallejo MD Symptoms: I50.9 CHF R06.02 SOB Study Quality: Fair ECG Rhythm: Sinus Conclusions: - 1. Normal LV systolic function with moderate LVH with LVEF of 50-55% with impaired relaxation filling pattern and elevated filling pressures 2. Moderately dilated left atrium 3. Early mild aortic stenosis 4. Upper limits of normal RV systolic pressure 5. No gross pericardial effusion Findings Left Ventricle Normal left ventricular cavity size. There is moderately increased left ventricular wall thickness. The left ventricular systolic function is low normal. The visually estimated ejection fraction is between 50-55%. Spectral Doppler is indicative of an impaired relaxation filling pattern. Elevated filling pressures. E/E prime ratio is >15, consistent with elevated filling pressures. Peak GLS is -9.5%, significantly reduced. Right Ventricle Normal right ventricular cavity size and systolic function. Atria The left atrium is moderately dilated. There is no evidence of interatrial shunt. The right atrium is likely dilated. Aortic Valve There is mild calcification of the aortic valve. There is mild aortic valve stenosis. There is no aortic valve regurgitation. Mitral Valve There is mild anterior and moderate posterior mitral leaflet thickening. There is moderate mitral annular calcification. There is trace mitral valve regurgitation. There is no mitral valve stenosis. Pulmonic Valve The pulmonic valve is likely normal. There is trace to mild pulmonic valve regurgitation. Tricuspid Valve Normal tricuspid valve structure. There is mild tricuspid valve regurgitation. The right ventricular systolic pressure is 35 mmHg. There is no evidence of pulmonary hypertension. Great Vessels All visible segments of the aorta are normal in size. The pulmonary artery was not well visualized. Venous The inferior vena cava is normal in size and collapses greater than 50% with inspiration. Pericardium/Pleural There is no evidence of pericardial effusion. Measurements 2D Linear Measurements IVSd: 1.44 0.6-0.9/0.6-1.0 cm LVIDd: 4.92 3.9-5.3/4.2-5.9 cm LVIDd Index: 3.35 2.4-3.2/2.2-3.1 cm/m2 LVIDs: 3.93 2.0-3.6 cm LVPWd: 1.45 0.7-1.1 cm LA Diam: 3.80 2.7-3.8/3.0-4.0 cm LAIDs Index: 2.59 1.5-2.3 cm/m2 LV Mass: 371.58 67-162/88-224 g LV Mass Index: 252.77 43-95/49-115 g/m2 LVOT Diam: 2.00 3.0+(-)1.3 cm 2D Systolic Function EF 4C: 55.10 >55% EF 2C: 52.50 >55% EF BiP: 54.60 >55% Mitral Valve MV Pk E: 0.81 MV PK A: 1.26 MV Decel Time: 162.00 E/A: 0.60 E'Lateral: 3.92 E'Medial: 4.24 E/E' Med: 19.10 E/E' Lat: 20.70 PHT: 47.00 MVA PHT: 4.68 Decel [place]: 5.01 Aortic Valve AoV Pk Angelo: 1.97 AoV Mn Angelo: 1.37 AoV VTI: 0.35 AoV Pk Grad: 16.00 Aov Mn Grad: 8.00 ANAYA Cont.VTI: 1.93 LVOT LVOT Pk Angelo: 1.07 LVOT Mn Angelo: 0.76 LVOT VTI: 0.22 LVOT Pk Grad: 5.00 LVOT Mn Grad: 3.00 LVOT Diam: 2.00 LVOT Area: 3.14 Diastolic Function MV Pk E: 0.81 MV Pk A: 1.26 E/A: 0.60 E'Medial: 4.24 E/E' Med: 19.10 E' Laterial: 3.92 E/E' Lat: 20.70 Right Ventricle TAPSE (mm): 20.00 TVS' Angelo: 15.30 Tricuspid Valve TR Pk Angelo: 2.81 TR Pk Grad: 32.00 RA Press: 3.00 RVSP: 35.00 Great Vessels Aorta Sinus of Valsalva: 3.22 2.0-3.[address] [place]: 2.05 1.7-3.4 cm Ao Asc: 3.50 2.1-3.4 cm Updated in Other Vendor System with Status of Final Jere Vallejo MD electronically signed on 04/18/2022 12:30:53 PM with status of Final
[2022-04-16 08:06] LABS: Hematocrit 40.4 % (37.0-47.0); Hemoglobin 12.7 g/dl (12.0-16.0); Mean Corpuscular HGB Conc 31.4 g/dl (31.0-35.0); Mean Corpuscular Hemoglobin 28.7 pg (27.0-33.0); Mean Corpuscular Volume 91.4 fL (80.0-98.0); Mean Platelet Volume 12.8 fL (9.4-12.3); Platelet Count 279 X10*3/uL (160-400); Red Blood Count 4.42 X10*6/uL (4.20-5.50); Red Cell Distribution Width 18.3 % (11.0-16.0)
[2022-04-16 08:11] LABS: WBC ABN SCTR FOR CBC 1
[2022-04-16 08:23] LABS: Band Neutrophils Percent 5 % (3-5); Basophils Percent Manual 1 % (0-2); Eosinophils Percent Manual 2 % (0-4); Lymphocytes Percent Manual 4 % (20-40); Metamyelocytes Percent 1 %; Monocytes Percent Manual 9 % (2-11); Neutrophils Percent Manual 78 % (45-73)
[2022-04-16 08:24] LABS: Burr Cells 1+ (0-2) /OIF; Hypochromasia 1+ (5-14) /OIF; Ovalocytes 1+ (5-14) /OIF; Platelet Estimate NORMAL (NORMAL); Platelet Morphology Comment NORMAL; RBC Morphology NOTED
[2022-04-16 08:26] LABS: Basophils Abs Manual 0.1 X10*3/uL (0.0-0.2); Eosinophils Absolute Manual 0.3 X10*3/uL (0.0-0.4); Lymphocytes Absolute Manual 0.5 X10*3/uL (1.2-4.9); Metamyelocytes Absolute 0.1 X10*3/uL; Monocytes Absolute Manual 1.2 X10*3/uL (0.1-1.2); White Blood Count 13.3 X10*3/uL (4.8-10.8)
[2022-04-16 08:42] LABS: Alanine Aminotransferase 16 U/L (0-31); Albumin Level 3.2 g/dL (3.5-5.0); Alkaline Phosphatase 90 U/L (39-117); Anion Gap 17 (12-20); Aspartate Amino Transferase 30 U/L (5-31); Bilirubin Total 0.7 mg/dL (0.0-1.0); Blood Urea Nitrogen 18 mg/dL (9-16); Carbon Dioxide 25 mmol/L (22-29); Chloride 106 mmol/L (96-108); Estimated Glomerular Filt Rate 31; Glucose Random 88 mg/dL (60-115); Potassium 4.9 mmol/L (3.3-5.1); Sodium 143 mmol/L (135-145); Total Protein 6.1 g/dL (6.5-8.0)
== END ==
LOC: HO.CARD 07:33
PROVIDERS: PCP Internal Medicine Medical Oncology; Visit Provider Internal Medicine Medical Oncology
DX: I50.9 Heart failure, unspecified (principal); J44.9 Chronic obstructive pulmonary disease, unspecified; R91.1 Solitary pulmonary nodule; D47.3 Essential (hemorrhagic) thrombocythemia; R63.4 Abnormal weight loss; R06.02 Shortness of breath
CPT/HCPCS: 36415; 80053; 85007; 85025; 85027; 93306; 93356

== ENCOUNTER 2022-04-25 15:02 | Outpatient (REF) | payer MEDICARE, SELFPAY ==
[2022-04-25 15:37] LABS: COVID-19 Test Negative (Negative); IDNOW Serial# 16C4AD1C
== END 2022-04-25 15:03 | disposition home or self-care (01) ==
LOC: HO.LAB 15:02
PROVIDERS: Visit Provider Internal Medicine
DX: Z20.822 Contact with and (suspected) exposure to COVID-19 (principal)
CPT/HCPCS: 87635; C9803

== ENCOUNTER → 2022-07-04 16:11 | Outpatient (REF) | payer MEDICARE, SELFPAY | LOC: HO.SL 16:11 | PROVIDERS: PCP Internal Medicine Medical Oncology; Visit Provider Hospitalist | DX: Z13.89 Encounter for screening for other disorder (principal) ==

== ENCOUNTER 2022-07-04 19:08 | Inpatient (IN) | payer MEDICARE, SELFPAY ==
--- NOTE | ~2022-07-04 | XR_ITS ---
EXAMINATION: XR CHEST CLINICAL INFORMATION: AMS. COMPARISON: None available. TECHNIQUE: 2 views of the chest were obtained. FINDINGS: The lungs are well-expanded and clear of acute pneumonic process. There is minimal blunting of bilateral CP angle from pleural effusion. The heart size and pulmonary vascularity is normal. No gross bony abnormality seen. XR/XR chest 2V IMPRESSION: Mild blunting of bilateral CP angle likely pleural thickening or tiny effusion. Otherwise rest of the lungs are clear.
--- NOTE | ~2022-07-04 | CT_ITS ---
EXAMINATION: CT HEAD WITHOUT CONTRAST CLINICAL INFORMATION: Altered mental status. COMPARISON: CT head from 09/02/2021. TECHNIQUE: Contiguous axial imaging was performed from the skull base to vertex without intravenous administration of contrast. This CT examination was performed using dose optimization techniques as appropriate, variously including the following: *Automated exposure control. *Adjustment of mA and/or kV according to patient size (this includes techniques or standardized protocols for targeted exams where dose is matched to indication/reason for exam; i.e. extremities or head). *Use of iterative reconstruction technique. DLP: 538 mGy-cm FINDINGS: Changes of prior left pterional craniotomy. Aneurysm clips are noted in the region of the anterior communicating artery and M1-M2 segment of the left MCA. Chronic regions of encephalomalacia involving the left insula and frontotemporal lobes. There is no evidence of acute intracranial hemorrhage or edematous territorial infarction. No new loss of mccann-white matter differentiation. Scattered and partially confluent hypoattenuation in the periventricular and deep white matter are consistent with moderate to extensive microangiopathy. Proportional prominence of the ventricles and sulcal spaces without evidence of obstructive hydrocephalus. No abnormal mass effect or midline shift. No extra-axial fluid collections. No acute soft tissue or osseous abnormalities. The mastoid air cells and visualized paranasal sinuses are clear. CT/CT head/brain wo IV con IMPRESSION: 1. No evidence of acute intracranial hemorrhage or edematous territorial infarction. 2. Chronic regions of encephalomalacia involving the left insula and frontotemporal lobes. Moderate to extensive underlying microangiopathy and generalized cerebral volume loss. 3. Changes of prior left pterional craniotomy with aneurysm clips in the region of the anterior communicating artery and M1-M2 segment of the left MCA.
--- NOTE | ~2022-07-04 | CT_ITS ---
EXAMINATION: CT ABDOMEN AND PELVIS WITH CONTRAST CLINICAL INFORMATION: Elevated bilirubin. COMPARISON: Multiple priors, most recent CT abdomen/pelvis dated 11/17/2019. TECHNIQUE: Multidetector volumetric images were obtained from the superior aspect of the liver through the pubic symphysis following administration 85 mL of Omnipaque 350 intravenous contrast. Sagittal and coronal reformatted images were obtained on the technologist's workstation. Oral Contrast: No. This CT examination was performed using dose optimization techniques as appropriate, variously including the following: *Automated exposure control. *Adjustment of mA and/or kV according to patient size (this includes techniques or standardized protocols for targeted exams where dose is matched to indication/reason for exam; i.e. extremities or head). *Use of iterative reconstruction technique. DLP: 552 mGy-cm FINDINGS: LUNG BASES: Small left-sided pleural effusion with bibasilar atelectasis versus infiltrates. Prominent cardiomegaly. Trace pericardial effusion. Findings are new when compared to the prior CT. LIVER, GALLBLADDER, AND BILIARY TREE: Nodular hepatic contour with parenchymal hypoattenuation, consistent with cirrhosis. There are subcentimeter hypodensities within the right and left hepatic lobe, similar when compared to the prior CT and too small to characterize. No enhancing hepatic parenchymal lesion. Cholelithiasis. No gallbladder wall thickening or inflammatory change. No intrahepatic or extrahepatic biliary ductal dilatation. PANCREAS: Unremarkable. SPLEEN: Unremarkable. ADRENAL GLANDS: Unremarkable. KIDNEYS AND URETERS: The kidneys are normal in size, shape, and attenuation. No hydronephrosis, hydroureter, or calculi seen. No perinephric stranding. BLADDER: Partially distended and unremarkable. GASTROINTESTINAL TRACT: No small or large bowel obstruction. No bowel wall thickening or inflammatory change. Appendix not identified, however, no right lower quadrant inflammatory change to suggest acute appendicitis. PERITONEAL CAVITY: Trace ascites with diffuse mesenteric stranding, new when compared to the prior examination. No organized fluid collection or abscess formation. No intra-abdominal free air. ABDOMINAL WALL: No significant abdominal wall hernia. Anasarca, new when compared to the prior examination. LYMPH NODES: No significant lymphadenopathy. VASCULAR: Redemonstration of esophageal, gastric, splenic, and anterior abdominal varices, likely indicating a degree of portal hypertension. No abdominal aortic dilatation or dissection. Prominent atherosclerotic calcifications are again noted. PELVIC VISCERA: The uterus and adnexa are unremarkable. OSSEOUS STRUCTURES: No acute osseous abnormality. CT/CT abdomen pelvis w IV con IMPRESSION: 1. Small left-sided pleural effusion with bibasilar atelectasis versus infiltrates, new when compared to the prior CT. Prominent cardiomegaly and trace pericardial effusion, new when compared to the prior CT. 2. Cirrhotic liver with subcentimeter hepatic hypodensities, similar when compared to the prior CT. No new hepatic parenchymal lesion or biliary ductal dilatation. Redemonstration of varices, indicating a degree of portal hypertension. 3. Cholelithiasis without evidence of acute cholecystitis. 4. Trace ascites with diffuse mesenteric stranding as well as diffuse anasarca, new when compared to the prior examination. Fleischner guidelines were followed.
--- NOTE | ~2022-07-04 | US_ITS ---
EXAMINATION: US ABDOMEN LIMITED CLINICAL INFORMATION: Elevated bilirubin. COMPARISON: Most recent CT abdomen/pelvis done earlier the same day. TECHNIQUE: Real-time imaging of the right upper quadrant abdominal viscera. FINDINGS: GALLBLADDER: Cholelithiasis measuring up to 0.9 cm. No gallbladder wall thickening or pericholecystic free fluid to suggest acute cholecystitis. COMMON BILE DUCT: Normal in caliber measuring 0.5 cm in diameter. US/US abdomen limited IMPRESSION: Cholelithiasis without gallbladder wall thickening or pericholecystic free fluid to suggest acute cholecystitis.
--- NOTE | 2022-07-04 19:15 | ED.AMS ---
HPI - Altered Mental Status General Chief Complaint: Altered Mental Status Stated Complaint: SEPSIS? Time Seen by Provider: 07/04/22 19:14 Source: patient Mode of arrival: EMS Limitations: altered mental status History of Present Illness HPI narrative: 77-year-old female with Alzheimer's dementia and the history of CVA cerebral aneurysm hypertension emphysema acid reflux presents to the emergency department with her who is a physician. He is concerned that she could be septic. Patient did have urinary sepsis last time back and in August of last year. Patient starting get more confused yesterday today's been sitting in the bathroom all day her patient is very limited historian he states he has no cough or signs of sepsis but he has heard some rales on her cough. MD complaint: altered mental status Related Data Home Medications Medication Instructions Recorded Confirmed anastrozole 1 mg tablet 1 tab PO DAILY 09/25/20 07/04/22 ascorbic acid (vitamin C) 1,000 mg 1,000 mg PO DAILY 09/25/20 07/04/22 tablet (Vitamin C) losartan 100 mg tablet 1 tab PO DAILY 09/25/20 07/04/22 magnesium 250 mg tablet 250 mg PO QPM 09/25/20 07/04/22 pregabalin 25 mg capsule 1 cap PO QAM 09/25/20 07/04/22 quetiapine 25 mg tablet 1 tab PO BEDTIME 09/25/20 07/04/22 aspirin 81 mg tablet,delayed 81 mg PO DAILY 09/02/21 07/04/22 release bupropion HCl 300 mg 24 hr tablet, 1 tab PO DAILY 09/02/21 07/04/22 extended release cholecalciferol (vitamin D3) 25 25 mcg PO BEDTIME 09/02/21 07/04/22 mcg (1,000 unit) tablet donepezil 5 mg tablet 1 tab PO DAILY 09/02/21 07/04/22 anagrelide 1 mg capsule 2 mg PO DAILY 09/03/21 07/04/22 meloxicam 7.5 mg tablet 7.5 mg PO DAILY 03/28/22 07/04/22 famotidine 40 mg tablet 40 mg PO QPM 07/04/22 07/04/22 montelukast 10 mg tablet 10 mg PO BEDTIME 07/04/22 07/04/22 multivitamin 1 tab PO DAILY 07/04/22 07/04/22 pregabalin 25 mg capsule 2 mg PO QPM 07/04/22 07/04/22 Previous Rx's Medication Instructions Recorded albuterol sulfate 90 mcg/actuation 2 puff inhalation Q6H PRN 12/19/20 aerosol inhaler (ProAir HFA) shortness of breath or wheezing 30 days #18 grams budesonide 0.5 mg/2 mL suspension 0.5 mg (2 mL) inhalation DAILY 90 03/11/21 for nebulization days #180 mL ipratropium 0.5 mg-albuterol 3 mg 3 ml inhalation QID #1,080 mL 04/19/22 (2.5 mg base)/3 mL nebulization soln Allergies Allergy/AdvReac Type Severity Reaction Status Date / Time fluoxetine [From PROZAC] Allergy Intermediate UNKNOWN Unverified 03/28/22 15:38 dexamethasone [From MAXIDEX] Allergy Mild RASH Unverified 03/28/22 15:38 hydrochlorothiazide Allergy Unknown RASH Unverified 03/28/22 15:38 [Hydrochlorothiazide] moxifloxacin [Moxifloxacin] Allergy Unknown RASH Unverified 03/28/22 15:38 Serotonin 5HT-3 Antagonists AdvReac Unknown UNKNOWN Unverified 03/28/22 15:38 [Selective 5-HT3 Receptor Antagonist] trazodone AdvReac Unknown nausea and Verified 03/28/22 15:38 vomiting Tricyclic Antidepressants AdvReac Unknown UNKNOWN Unverified 03/28/22 15:38 and Tricy [TRICYCLIC COMPOUNDS] From MAXIDEX Allergy Unknown UNKNOWN Uncoded 03/28/22 15:38 Maxide Allergy Unknown Hives Uncoded 03/28/22 15:38 SSRI(Prozac) Allergy Unknown Unknown Uncoded 03/28/22 15:38 TCA(Nortripyline) Allergy Unknown Unknown Uncoded 03/28/22 15:38 NORTRIPTILIENE AdvReac Intermediate UNKNOWN Uncoded 03/28/22 15:38 Review of Systems Review of Systems: Review of systems: General: Patient denies any fever chills recent illness or falls Musculoskeletal: Denies back pain or body aches or other injuries HEENT: denies headache, runny nose, ear pain Respiratory: denies shortness of breath, cough Cardiovascular: no chest pain or palpitations : denies dysuria, frequency Abdomen: no nausea vomiting denies abdominal pain Extremities: no swelling, no pain Skin: no diaphoresis Yes all other systems are reviewed and are negative PMFSH Past Medical History Medical History (Updated 07/04/22 @ 21:15 by Elver Cruz DO) Cardiomegaly Cerebral aneurysm Cerebral infarct Chronic hypoxemic respiratory failure COPD (chronic obstructive pulmonary disease) Emphysema lung Former smoker GERD (gastroesophageal reflux disease) HTN (hypertension) Neuropathy JALEEL (obstructive sleep apnea) Osteoarthritis Osteoporosis PVC (premature ventricular contraction) Rheumatic fever Sepsis Thoracic kyphosis Thrombocytosis Surgical History H/O bilateral breast reduction surgery H/O breast reconstruction H/O cerebral aneurysm repair H/O right mastectomy Social History Social History Household Members: None Housing: Apartment Do you presently have visiting nurse or other home services: No Patient Tobacco Use Status: Former Tobacco user Advance Directives: Yes Advance Directives on File: Yes Advance Directives Date on File: 09/26/20 service: No Current occupational status: retired Physical Exam ED Vital Signs: Vital Signs - 24 hr 07/04/22 20:00 Pulse Rate 88 Respiratory Rate 18 Blood Pressure 133/85 Pulse Oximetry 95 Oxygen Delivery Method Nasal Cannula Oxygen Flow Rate 3 BMI result Body Mass Index 23.6 General: Well-appearing well-nourished in no signs of distress HEENT: Normocephalic atraumatic Neck: No signs of JVD, no masses no tenderness or lymphadenopathy Cardiovascular: Regular rate and rhythm Respiratory: Clear to auscultation bilaterally Abdomen: Soft nontender no masses rectal exam performed guiac negative water quality control engineer confirmed. Extremities: Normal pedal pulses no signs of edema Skin: Dry warm no rashes Back: No tenderness full ROM Medications Administered Discontinued Medications Generic Name Dose Route Start Last Admin Trade Name Freq PRN Reason Stop Dose Admin Haloperidol Lactate 2.5 mg 07/04/22 20:24 07/04/22 20:28 Haloperidol Lactate 5 Mg/Ml Vial IVPUSH 07/04/22 20:25 2.5 mg STAT STA Administration Sodium Chloride 1,000 mls @ 999 mls/hr 07/04/22 19:30 07/04/22 19:33 Ns IV 07/04/22 20:30 999 mls/hr .Q1H1M SÁNCHEZ Administration Iohexol 100 ml 07/04/22 20:59 07/04/22 21:00 Iohexol 350 Mg/Ml 100 Ml Infus..Btl IV 07/04/22 21:00 85 ml ONCE ONE Administration Medical Decision Making Medical Decision Making [facility] Narrative: Patient presented similarly previously high will give patient fluids check labs and reassess. 2023 [place] now agitated attempting to get out of the bed. Patient had to get some haldol to calm the patient down. Differential Diagnosis Differential Diagnoses: The differential diagnosis associated with the presentation includes CHF exacerbation patient does have some swelling in her lower extremity as well as pneumonia sepsis urinary tract infection causing altered mental status electrode abnormality and decreased appetite. Patient became agitated while in bed we did have to give patient some Haldol to keep her calm way to the rest of the workup. Patient's labs did start coming back showing a mild elevation in bilirubin as well as a lactic acidosis patient is given fluids and antibiotics patient did require multiple re-evaluations vitals have remained stable. The haldol worked well and calming the patient down. Admission/Observation Consideration of admission/observation: Escalation of care including admission/observation considered Consult Healthcare Provider Management of the patient was discussed with: Hospitalist Dr. Boland who agreed with the need for admission Lab Data [facility] Lab Attestation statement: I reviewed the patient's lab results. 07/04/22 19:56 07/04/22 19:56 Labs: Lab Results 07/04/22 07/04/22 07/04/22 Range/Units 19:55 19:55 19:55 WBC (4.8-10.8) X10*3/uL RBC (4.20-5.50) X10*6/uL Hgb (12.0-16.0) g/dl Hct (37.0-47.0) % MCV (80.0-98.0) fL MCH (27.0-33.0) pg MCHC (31.0-35.0) g/dl RDW (11.0-16.0) % Plt Count (160-400) X10*3/uL MPV (9.4-12.3) fL Immature Gran % (Auto) Neut % (Auto) Lymph % (Auto) [place] % (Auto) Eos % (Auto) Baso % (Auto) Lymph # (Auto) [place] # (Auto) Eos # (Auto) Baso # (Auto) Abs Immat Gran (auto) Absolute Neuts (auto) Absolute Nucleated RBC (0.0-0.012) X10*3/uL Nucleated RBC % (auto) (0.0-0.2) /100WBC Neutrophils % (Manual) (45-73) % Band Neutrophils % (3-5) % Lymphocytes % (Manual) (20-40) % Monocytes % (Manual) (2-11) % Eosinophils % (Manual) (0-4) % Basophils % (Manual) (0-2) % Metamyelocytes % % Abs Neuts (Manual) (2.0-8.3) X10*3/uL Lymphocytes # (Manual) (1.2-4.9) X10*3/uL Monocytes # (Manual) (0.1-1.2) X10*3/uL Eosinophils # (Manual) (0.0-0.4) X10*3/uL Basophils # (Manual) (0.0-0.2) X10*3/uL Metamyelocytes # X10*3/uL Platelet Estimate (NORMAL) Large Platelets Plt Morphology Comment RBC Morphology Ovalocytes /OIF Stewart Cells /OIF Sodium (135-145) mmol/L Potassium (3.3-5.1) mmol/L Chloride (96-108) mmol/L Carbon Dioxide (22-29) mmol/L Anion Gap (12-20) BUN (9-16) mg/dL Creatinine (0.5-1.4) mg/dL Estim Creat Clear Calc Estimated GFR Random Glucose (60-115) mg/dL Lactic Acid 3.6 H* (0.5-2.0) mmol/L Calcium (8.4-10.2) mg/dL Total Bilirubin (0.0-1.0) mg/dL Direct Bilirubin (0.0-0.5) mg/dL AST (5-31) U/L ALT (0-31) U/L Alkaline Phosphatase (39-117) U/L Troponin I High Sens 67.5 H* (<3.5-17.0) ng/L Total Protein (6.5-8.0) g/dL Albumin (3.5-5.0) g/dL Lipase (8-78) U/L COVID-19 ([facility]) Negative (Negative) COVID-19 Clin Com See Note 07/04/22 07/04/22 Range/Units 19:56 19:56 WBC 16.1 H (4.8-10.8) X10*3/uL RBC 5.18 (4.20-5.50) X10*6/uL Hgb 14.3 (12.0-16.0) g/dl Hct 46.1 (37.0-47.0) % MCV 89.0 (80.0-98.0) fL MCH 27.6 (27.0-33.0) pg MCHC 31.0 (31.0-35.0) g/dl RDW 18.6 H (11.0-16.0) % Plt Count 402 H D (160-400) X10*3/uL MPV 11.9 (9.4-12.3) fL Immature Gran % (Auto) Cancelled Neut % (Auto) Cancelled Lymph % (Auto) Cancelled [place] % (Auto) Cancelled Eos % (Auto) Cancelled Baso % (Auto) Cancelled Lymph # (Auto) Cancelled [place] # (Auto) Cancelled Eos # (Auto) Cancelled Baso # (Auto) Cancelled Abs Immat Gran (auto) Cancelled Absolute Neuts (auto) Cancelled Absolute Nucleated RBC 0.020 H (0.0-0.012) X10*3/uL Nucleated RBC % (auto) 0.1 (0.0-0.2) /100WBC Neutrophils % (Manual) 81 H (45-73) % Band Neutrophils % 3 (3-5) % Lymphocytes % (Manual) 8 L (20-40) % Monocytes % (Manual) 5 (2-11) % Eosinophils % (Manual) 1 (0-4) % Basophils % (Manual) 1 (0-2) % Metamyelocytes % 1 % Abs Neuts (Manual) 13.5 H (2.0-8.3) X10*3/uL Lymphocytes # (Manual) 1.3 (1.2-4.9) X10*3/uL Monocytes # (Manual) 0.8 (0.1-1.2) X10*3/uL Eosinophils # (Manual) 0.2 (0.0-0.4) X10*3/uL Basophils # (Manual) 0.2 (0.0-0.2) X10*3/uL Metamyelocytes # 0.2 X10*3/uL Platelet Estimate NORMAL (NORMAL) Large Platelets PRESENT Plt Morphology Comment NORMAL RBC Morphology NOTED Ovalocytes 1+ (5-14) /OIF Stewart Cells 1+ (0-2) /OIF Sodium 144 (135-145) mmol/L Potassium 5.6 H (3.3-5.1) mmol/L Chloride 102 (96-108) mmol/L Carbon Dioxide 27 (22-29) mmol/L Anion Gap 21 H (12-20) BUN 22 H (9-16) mg/dL Creatinine 1.07 (0.5-1.4) mg/dL Estim Creat Clear Calc 34.2 Estimated GFR 50 Random Glucose 64 (60-115) mg/dL Lactic Acid (0.5-2.0) mmol/L Calcium 9.7 D (8.4-10.2) mg/dL Total Bilirubin 1.7 H (0.0-1.0) mg/dL Direct Bilirubin 0.8 H (0.0-0.5) mg/dL AST 52 H (5-31) U/L ALT 25 (0-31) U/L Alkaline Phosphatase 92 (39-117) U/L Troponin I High Sens (<3.5-17.0) ng/L Total Protein 6.9 (6.5-8.0) g/dL Albumin 3.7 (3.5-5.0) g/dL Lipase 23 (8-78) U/L COVID-19 ([facility]) (Negative) COVID-19 Clin Com Independent Interpretation I performed an independent interpretation of an: EKG and Plain X-Ray Interpretation: Rate 89 normal sinus rhythm normal intervals no signs of ischemia no change from previous. X-ray shows no acute effusions no obvious infiltrates Radiology Impression Discussion of test interpretation with radiology: I have reviewed the radiologist's reading. Independent Historian Clinical information obtained from an independent historian. History obtained from or confirmed by: Spouse Dr. Cruz is the spouse and a very good historian External Record Review External record reviewed: Inpatient record Chronic Conditions Patient?s care impacted by: Diabetes and Cancer Breast cancer with metastis Critical Care Time Critical Care Time Critical Care Time: Yes Total Critical Care Time: 60 Attestation: Multiple conversations with her physicians spouse about patient's care as well as rehydration patient to get agitated required some sedation with Haldol. Patient has elevated bilirubin also concerns for sepsis with lactic acidosis of 3.6 vitals have remained stable patient is given fluids as well as antibiotics. Discharge Plan Discharge Clinical Impression: COPD (chronic obstructive pulmonary disease), Other thrombocytosis, Acidosis, lactic, Acute dehydration, Elevated bilirubin, Urinary tract infection, Sepsis, Agitation Patient Disposition: Admitted As Inpatient Prescriptions: No Action albuterol sulfate [ProAir HFA] 90 mcg/actuation HFA aerosol inhaler 2 puff inhalation Q6H PRN (Reason: shortness of breath or wheezing) 30 Days Qty: 18 11RF budesonide 0.5 mg/2 mL suspension for nebulization 0.5 mg inhalation DAILY 90 Days Qty: 180 3RF ipratropium-albuterol 0.5 mg-3 mg(2.5 mg base)/3 mL solution for nebulization 3 ml inhalation QID Qty: 1080 0RF quetiapine 25 mg tablet 1 tab PO BEDTIME anastrozole 1 mg tablet 1 tab PO DAILY losartan 100 mg tablet 1 tab PO DAILY pregabalin 25 mg capsule 1 cap PO QAM ascorbic acid (vitamin C) [Vitamin C] 1,000 mg Tablet 1,000 mg PO DAILY magnesium 250 mg Tablet 250 mg PO QPM donepezil 5 mg tablet 1 tab PO DAILY bupropion HCl 300 mg tablet extended release 24 hr 1 tab PO DAILY aspirin 81 mg Tablet,Delayed Release (Dr/Ec) 81 mg PO DAILY cholecalciferol (vitamin D3) 25 mcg (1,000 unit) Tablet 25 mcg PO BEDTIME anagrelide 1 mg capsule 2 mg PO DAILY famotidine 40 mg tablet 40 mg PO QPM pregabalin 25 mg capsule 2 mg PO QPM multivitamin Tablet 1 tab PO DAILY montelukast 10 mg tablet 10 mg PO BEDTIME meloxicam 7.5 mg tablet 7.5 mg PO DAILY
--- NOTE | 2022-07-04 19:17 | ECG_ITS ---
Test Reason : AMS Blood Pressure : / mmHG Vent. Rate : 089 BPM Atrial Rate : 089 BPM P-R Int : 150 ms QRS Dur : 108 ms QT Int : 446 ms P-R-T Axes : 029 -50 088 degrees QTc Int : 542 ms Normal sinus rhythm Left atrial enlargement Left anterior fascicular block Left ventricular hypertrophy ( R in aVL , [place] product ) Nonspecific ST and T wave abnormality Prolonged QT Abnormal ECG When compared with ECG of 02-SEP-2021 17:25, No significant change was found Referred By: Elver Cruz Electronically Signed By:Hardeep Aguilar
[2022-07-04] MEDS: 0.9 % Sodium Chloride 1,000 ML 999 ML IV ×3 (19:33→21:52)
[2022-07-04 19:43] VITALS: BMI 23.6
[2022-07-04 20:00] VITALS: BP 133/85; PULSE 88; RESP 18; O2SAT 95
[2022-07-04 20:18] LABS: Hemoglobin 14.3 g/dl (12.0-16.0)
[2022-07-04 20:19] LABS: Hematocrit 46.1 % (37.0-47.0); Mean Corpuscular Hemoglobin 27.6 pg (27.0-33.0); Mean Platelet Volume 11.9 fL (9.4-12.3); NRBC Pct Auto 0.1 /100WBC (0.0-0.2); Platelet Count 402 X10*3/uL (160-400); Red Blood Count 5.18 X10*6/uL (4.20-5.50); Red Cell Distribution Width 18.6 % (11.0-16.0)
[2022-07-04 20:23] LABS: COVID-19 Test Negative (Negative); IDNOW Serial# 08D9AD1C
[2022-07-04 20:25] LABS: PLT ABN DIST 1; WBC ABN SCTR FOR CBC 1; White Blood Count 16.1 X10*3/uL (4.8-10.8)
[2022-07-04] MEDS: Haloperidol Lactate 5 MG/ML VIAL 2.5 MG IVPUSH ×2 (20:28→23:04)
[2022-07-04 20:31] LABS: Lactic Acid 3.6 mmol/L (0.5-2.0)
[2022-07-04 20:33] LABS: Alanine Aminotransferase 25 U/L (0-31); Albumin Level 3.7 g/dL (3.5-5.0); Alkaline Phosphatase 92 U/L (39-117); Anion Gap 21 (12-20); Aspartate Amino Transferase 52 U/L (5-31); Bilirubin Direct 0.8 mg/dL (0.0-0.5); Bilirubin Total 1.7 mg/dL (0.0-1.0); Blood Urea Nitrogen 22 mg/dL (9-16); Calcium 9.7 mg/dL (8.4-10.2); Carbon Dioxide 27 mmol/L (22-29); Chloride 102 mmol/L (96-108); Creatinine Clr Calc Pharmacy 34.2; Estimated Glomerular Filt Rate 50; Glucose Random 64 mg/dL (60-115); Lipase 23 U/L (8-78); Potassium 5.6 mmol/L (3.3-5.1); Sodium 144 mmol/L (135-145); Total Protein 6.9 g/dL (6.5-8.0)
[2022-07-04 20:40] LABS: Troponin-I High Sensitivity 67.5 ng/L (<3.5-17.0)
--- NOTE | 2022-07-04 20:40 | PC.NURSE ---
Patient attempting to get out of bed stating that she wanted to go home and that she was leaving. Patient got to the edge of the bed and was attempting to up, and staff attempted to redirect patient. Provider brought into room for assistance and 2.5mg of haldol was ordered and administered per MAR. Patient spoke with daughter on the phone and this seemed calm patient down. Patient was assisted back into bed and is currently resting with eyes closed.
--- NOTE | 2022-07-04 20:52 | PHA.MEDREC ---
Pharmacy Consult ? Medication Reconciliation Pharmacy has completed the medication reconciliation. Spouse had list
[2022-07-04 20:54] LABS: Band Neutrophils Percent 3 % (3-5); Basophils Abs Manual 0.2 X10*3/uL (0.0-0.2); Basophils Percent Manual 1 % (0-2); Eosinophils Absolute Manual 0.2 X10*3/uL (0.0-0.4); Eosinophils Percent Manual 1 % (0-4); Lymphocytes Absolute Manual 1.3 X10*3/uL (1.2-4.9); Lymphocytes Percent Manual 8 % (20-40); Metamyelocytes Absolute 0.2 X10*3/uL; Metamyelocytes Percent 1 %; Monocytes Absolute Manual 0.8 X10*3/uL (0.1-1.2); Monocytes Percent Manual 5 % (2-11); Neutrophils Absolute Manual 13.5 X10*3/uL (2.0-8.3); Neutrophils Percent Manual 81 % (45-73); RBC Morphology NOTED
[2022-07-04 20:55] LABS: Burr Cells 1+ (0-2) /OIF
[2022-07-04 20:57] LABS: Large Platelet PRESENT; Ovalocytes 1+ (5-14) /OIF; Platelet Estimate NORMAL (NORMAL); Platelet Morphology Comment NORMAL
[2022-07-04] MEDS: iohexoL 350 MG/ML 100 ML INFUS..BTL IV (21:00)
--- NOTE | 2022-07-04 21:32 | PC.NURSE ---
additional 20G IV placed right wrist, ok per provider and spouse ().
[2022-07-04] MEDS: cefTRIAXone sodium 1 GM in 0.9 % Sodium Chloride 50 ML IV (21:51)
[2022-07-04] MEDS: Aspirin 81 MG TAB.CHEW 324 MG PO (21:51)
--- NOTE | 2022-07-04 21:55 | P.HPHOSP_ITS ---
History of Present Illness Date of Service: 07/04/22 Attending physician on admission: Monroe Sidhu Chief Complaint: ams 77-year-old female with history of cerebral aneurysm s/p repair with subsequent cerebral infarction, unspecified dementia, chronic hypoxemic respiratory failure on supplemental O2 due to severe emphysema, hypertension, GERD, cardiomegaly, history of breast cancer on anastrozole, osteoporosis, thrombocytosis on anagrelide, history of rheumatic fever, and JALEEL presented to the ED with her , Dr. Gardnerin, for evaluation of altered mental status. He states that his [id number], who lives with him and the patient, noted the patient to be confused today. She sat in the bathroom for the majority of the day on the toilet and was not eating or drinking. He states she had a similar presentation last summer when she was admitted for urosepsis. In the ED, vital signs stable. There is a leukocytosis of 16.1. Renal function baseline. Mild hyperkalemia o f 5.6. AST 52, ALT 25, total bilirubin 1.7, direct bilirubin 0.8. Lactic acid 3.4. Initial troponin 67.5, repeat pending. EKG showing NSR, rate [address]/T-wave abnormality and prolonged QTC 542 (chronically elevated), no significant change compared to prior EKGs. UA with 2+ leukocytes, nitrite positive, negative blood, elevated specific gravity, positive urinary sediment and bacteria. Head CT is without any acute intracranial abnormality but does show chronic regions of encephalomalacia and moderate to extensive underlying microangiopathy and generalized cerebral volume loss as well as changes of prior left pterional craniotomy with aneurysm clots in the region of the anterior communicating artery an M1-M2 segment of left MCA. CXR without any acute cardiopulmonary abnormality. CT abdomen/pelvis report pending. In the ED, treated with 3 L IV NS, 1 g IV ceftriaxone, 325 mg aspirin, and 2.5 mg Haldol due to agitation. Review of Systems Review of Systems: Yes Unobtainable due to mental status [facility] Medical History (Updated 07/04/22 @ 22:22 by ADELINA Causey) Cardiomegaly Cerebral aneurysm Cerebral infarct Chronic hypoxemic respiratory failure COPD (chronic obstructive pulmonary disease) Emphysema lung Former smoker GERD (gastroesophageal reflux disease) HTN (hypertension) Neuropathy JALEEL (obstructive sleep apnea) Osteoarthritis Osteoporosis Other thrombocytosis PVC (premature ventricular contraction) Rheumatic fever Sepsis Thoracic kyphosis Thrombocytosis Surgical History H/O bilateral breast reduction surgery H/O breast reconstruction H/O cerebral aneurysm repair H/O right mastectomy Social History Household Members: None Housing: Apartment Do you presently have visiting nurse or other home services: No Patient Tobacco Use Status: Former Tobacco user Advance Directives: Yes Advance Directives on File: Yes Advance Directives Date on File: 09/26/20 service: No Current occupational status: retired Meds Allergies Allergy/AdvReac Type Severity Reaction Status Date / Time fluoxetine [From PROZAC] Allergy Intermediate UNKNOWN Unverified 03/28/22 15:38 dexamethasone [From MAXIDEX] Allergy Mild RASH Unverified 03/28/22 15:38 hydrochlorothiazide Allergy Unknown RASH Unverified 03/28/22 15:38 [Hydrochlorothiazide] moxifloxacin [Moxifloxacin] Allergy Unknown RASH Unverified 03/28/22 15:38 Serotonin 5HT-3 Antagonists AdvReac Unknown UNKNOWN Unverified 03/28/22 15:38 [Selective 5-HT3 Receptor Antagonist] trazodone AdvReac Unknown nausea and Verified 03/28/22 15:38 vomiting Tricyclic Antidepressants AdvReac Unknown UNKNOWN Unverified 03/28/22 15:38 and Tricy [TRICYCLIC COMPOUNDS] From MAXIDEX Allergy Unknown UNKNOWN Uncoded 03/28/22 15:38 Maxide Allergy Unknown Hives Uncoded 03/28/22 15:38 SSRI(Prozac) Allergy Unknown Unknown Uncoded 03/28/22 15:38 TCA(Nortripyline) Allergy Unknown Unknown Uncoded 03/28/22 15:38 NORTRIPTILIENE AdvReac Intermediate UNKNOWN Uncoded 03/28/22 15:38 Active Medications: Current Medications Acetaminophen (Acetaminophen 325 Mg Tablet) 650 mg PO Q6H PRN PRN Reason: Pain, Mild (Pain Scale 1-3) Docusate Sodium (Docusate Sodium 100 Mg Capsule) 100 mg PO DAILY PRN PRN Reason: Constipation Enoxaparin Sodium (Enoxaparin Sodium 40 Mg/0.4 Ml Syringe) 40 mg SUBCUT Q24H S[place]NCHEZ Dextrose (D10) 1,000 mls @ 150 mls/hr IVCONT .Q6H40M [facility] Last Admin: 07/04/22 21:52 Dose: Not Given Sodium Chloride (Ns) 1,000 mls @ 999 mls/hr IV .Q1H1M [facility] Stop: 07/04/22 22:15 Last Admin: 07/04/22 21:52 Dose: 999 mls/hr Pharmacy Consult (Consult Rx Perform Med Rec) 1 each MISCELLANE ONCE PRN PRN Reason: Consult order Sodium Chloride (0.9 % Sodium Chloride Flush 3 Ml Syringe) 3 ml IVFLUSH QSHIFT [facility] Home Medications Medication Instructions Recorded Confirmed Last Taken Type anastrozole 1 mg tablet 1 tab PO DAILY 09/25/20 07/04/22 09/02/21 History ascorbic acid (vitamin C) 1,000 mg 1,000 mg PO DAILY 09/25/20 07/04/22 09/02/21 History tablet (Vitamin C) losartan 100 mg tablet 1 tab PO DAILY 09/25/20 07/04/22 09/02/21 History magnesium 250 mg tablet 250 mg PO QPM 09/25/20 07/04/22 09/02/21 History pregabalin 25 mg capsule 1 cap PO QAM 09/25/20 07/04/22 09/02/21 History quetiapine 25 mg tablet 1 tab PO BEDTIME 09/25/20 07/04/22 09/01/21 History aspirin 81 mg tablet,delayed 81 mg PO DAILY 09/02/21 07/04/22 09/02/21 History release bupropion HCl 300 mg 24 hr tablet, 1 tab PO DAILY 09/02/21 07/04/22 09/02/21 History extended release cholecalciferol (vitamin D3) 25 25 mcg PO BEDTIME 09/02/21 07/04/22 09/01/21 History mcg (1,000 unit) tablet donepezil 5 mg tablet 1 tab PO DAILY 09/02/21 07/04/22 09/02/21 History anagrelide 1 mg capsule 2 mg PO DAILY 09/03/21 07/04/22 Unknown History meloxicam 7.5 mg tablet 7.5 mg PO DAILY 03/28/22 07/04/22 Unknown History famotidine 40 mg tablet 40 mg PO QPM 07/04/22 07/04/22 Unknown History montelukast 10 mg tablet 10 mg PO BEDTIME 07/04/22 07/04/22 Unknown History multivitamin 1 tab PO DAILY 07/04/22 07/04/22 Unknown History pregabalin 25 mg capsule 2 mg PO QPM 07/04/22 07/04/22 Unknown History Physical Exam Vital Signs and Narrative: Vital Signs: Last Vital Signs Pulse 88 07/04/22 20:00 Resp 18 07/04/22 20:00 BP 133/85 07/04/22 20:00 Pulse Ox 95 07/04/22 20:00 O2 Del Method Nasal Cannula 07/04/22 20:00 O2 Flow Rate 3 07/04/22 20:00 BMI result Body Mass Index 23.6 Constitutional - Awake and Alert, No apparent distress Eyes - PERRLA, EOMI Cardiovascular - S1S2, RRR, No edema Respiratory - Normal lung expansion, Normal respiratory effort, No respiratory distress, scattered crackles bilaterally Gastrointestinal - NT / ND; +BS; No rebound or guarding Extremities - no calf tenderness bilaterally, no swelling Skin - Warm/Dry Neurological - Alert & oriented to self and place, aggitated but answering simple questions when asked Psychological - Appropriate affect Results Labs 07/04/22 19:56 07/04/22 19:56 Labs: Laboratory Results - last 24 hr 07/04/22 07/04/22 07/04/22 19:55 19:55 19:55 MCV MCH MCHC RDW Plt Count MPV Immature Gran % (Auto) Neut % (Auto) Lymph % (Auto) [place] % (Auto) Eos % (Auto) Baso % (Auto) Lymph # (Auto) [place] # (Auto) Eos # (Auto) Baso # (Auto) Abs Immat Gran (auto) Absolute Neuts (auto) Absolute Nucleated RBC Nucleated RBC % (auto) Neutrophils % (Manual) Band Neutrophils % Lymphocytes % (Manual) Monocytes % (Manual) Eosinophils % (Manual) Basophils % (Manual) Metamyelocytes % Abs Neuts (Manual) Lymphocytes # (Manual) Monocytes # (Manual) Eosinophils # (Manual) Basophils # (Manual) Metamyelocytes # Platelet Estimate Large Platelets Plt Morphology Comment RBC Morphology Ovalocytes Stewart Cells Anion Gap Estim Creat Clear Calc Estimated GFR Random Glucose Lactic Acid 3.6 H* Calcium Total Bilirubin Direct Bilirubin AST ALT Alkaline Phosphatase Troponin I High Sens 67.5 H* Total Protein Albumin Lipase COVID-19 (REYNALDO) Negative COVID-19 Clin Com See Note 07/04/22 07/04/22 19:56 19:56 MCV 89.0 MCH 27.6 MCHC 31.0 RDW 18.6 H Plt Count 402 H D MPV 11.9 Immature Gran % (Auto) Cancelled Neut % (Auto) Cancelled Lymph % (Auto) Cancelled [place] % (Auto) Cancelled Eos % (Auto) Cancelled Baso % (Auto) Cancelled Lymph # (Auto) Cancelled [place] # (Auto) Cancelled Eos # (Auto) Cancelled Baso # (Auto) Cancelled Abs Immat Gran (auto) Cancelled Absolute Neuts (auto) Cancelled Absolute Nucleated RBC 0.020 H Nucleated RBC % (auto) 0.1 Neutrophils % (Manual) 81 H Band Neutrophils % 3 Lymphocytes % (Manual) 8 L Monocytes % (Manual) 5 Eosinophils % (Manual) 1 Basophils % (Manual) 1 Metamyelocytes % 1 Abs Neuts (Manual) 13.5 H Lymphocytes # (Manual) 1.3 Monocytes # (Manual) 0.8 Eosinophils # (Manual) 0.2 Basophils # (Manual) 0.2 Metamyelocytes # 0.2 Platelet Estimate NORMAL Large Platelets PRESENT Plt Morphology Comment NORMAL RBC Morphology NOTED Ovalocytes 1+ (5-14) Stewart Cells 1+ (0-2) Anion Gap 21 H Estim Creat Clear Calc 34.2 Estimated GFR 50 Random Glucose 64 Lactic Acid Calcium 9.7 D Total Bilirubin 1.7 H Direct Bilirubin 0.8 H AST 52 H ALT 25 Alkaline Phosphatase 92 Troponin I High Sens Total Protein 6.9 Albumin 3.7 Lipase 23 COVID-19 (REYNALDO) COVID-19 Clin Com Imaging Radiologist's Impressions: Impressions Chest X-Ray 07/04/22 19:47 IMPRESSION: Mild blunting of bilateral CP angle likely pleural thickening or tiny effusion. Otherwise rest of the lungs are clear. Head CT 07/04/22 20:30 IMPRESSION: 1. No evidence of acute intracranial hemorrhage or edematous territorial infarction. 2. Chronic regions of encephalomalacia involving the left insula and frontotemporal lobes. Moderate to extensive underlying microangiopathy and generalized cerebral volume loss. 3. Changes of prior left pterional craniotomy with aneurysm clips in the region of the anterior communicating artery and M1-M2 segment of the left MCA. Assessment and Plan (1) Acute dehydration: Status: Acute (2) UTI (urinary tract infection): Status: Acute (3) Acute metabolic encephalopathy: Status: Acute Plan 77-year-old female with history of cerebral aneurysm s/p repair with subsequent cerebral infarction, unspecified dementia, chronic hypoxemic respiratory failure on supplemental O2 due to severe emphysema, hypertension, GERD, cardiomegaly, history of breast cancer on anastrozole, osteoporosis, thrombocytosis on anagrelide, history of rheumatic fever, and JALEEL admitted for acute metabolic encephalopathy due to UTI. # acute metabolic encephalopathy related to UTI -head CT negative -leukocytosis 16.1. No other sirs criteria, no sepsis -IV ceftriaxone 1 g daily x5 days (initiated 07/04) -follow UC, BC -follow CBC -monitor mentation # acute hyperkalemia related to dehydration -K 5.6 -given 3 L IVF in ED -continue gentle hydration with LR -hold losartan at this time -follow BMP # acute lactic acidosis -likely related to tissue hypoperfusion in the setting of dehydration, not severe sepsis #Elevated troponin -Initiatial 67, repeat pending -no CP, EKG nonischemic # chronic hypoxemic respiratory failure due to severe emphysema-no acute exacerbation -continue supplemental O2 -continue home inhalers/nebulizers # unspecified dementia -continue donepezil and Seroquel -ovoid additional QT prolonging agents if possible due to prolonged QTC from medication use # history CVA/cerebral aneurysm -continue aspirin # hypertension-reasonably controlled -hold losartan in setting of hyperkalemia, resume as appropriate # GERD -continue home meds # chronic thrombocytosis -likely related to myelodysplastic syndrome -continue anagrelide DVT prophylaxis-Lovenox DNR/DNI per MOLST form- confirmed with Patient requires inpatient stay of at least 2 midnights for management of acute metabolic encephalopathy related to UTI requiring IV antibiotics and close monitoring of mentation Time Spent With Patient Time: Total time managing care of this patient today ____ minutes. Quality Stroke Does the patient have a stroke diagnosis?: No VTE Prior VTE?: No VTE Risk Level:: Medical - moderate - high VTE Device Contraindication: Treatment Not Indicated VTE Drug Contraindication: N/A - Med Ordered
[2022-07-04 22:03] LABS: Appearance Urine Cloudy; Color Urine Dark Yellow; Glucose Urine UA Negative (Negative); Leukocyte Esterase Urine Moderate (2+) (Negative); Nitrite Urine Positive (Negative); PH 5.5 (5.0-9.0); Specific Gravity - Urine >= 1.030 (1.005-1.025); UMIC TRIGGER UACC YES; Urine Blood Negative (Negative); Urine Ketones Trace mg/dL (Negative); Urine Protein 30 (1+) mg/dL (Neg-Trace)
[2022-07-04 22:06] LABS: Reflex Lactate? Lactic Acid Added
[2022-07-04 22:23] LABS: Bacteria Urine 4+ (None Seen); RBC Urine 0-2 /HPF (0-2); UACC Culture Trigger YES
[2022-07-04 22:46] VITALS: PULSE 92; RESP 20; O2SAT 95
[2022-07-04] MEDS: Albuterol/Iprat 2.5/0.5MG 3 ML AMPUL.NEB INHALE (22:46)
[2022-07-04 22:58] LABS: Troponin-I High Sensitivity 65.2 ng/L (<3.5-17.0)
[2022-07-04] MEDS: QUEtiapine Fumarate 25 MG TABLET PO (23:01)
[2022-07-04] MEDS: Pregabalin 25 MG CAPSULE 50 MG PO (23:01)
[2022-07-04] MEDS: Famotidine 20 MG TABLET 40 MG PO (23:02)
[2022-07-04] MEDS: Magnesium Oxide 400 MG TABLET 200 MG PO (23:02)
[2022-07-04] MEDS: Enoxaparin Sodium 40 MG/0.4 ML SYRINGE SUBCUT (23:02)
[2022-07-04] MEDS: Lactated Ringers 1,000 ML 100 ML IVCONT (23:15)
[2022-07-04] MEDS: 0.9 % Sodium Chloride Flush 3 ML SYRINGE IVFLUSH (23:17)
[2022-07-04 23:44] LABS: Lactic Acid 1.9 mmol/L (0.5-2.0)
[2022-07-05] VITALS (9 sets, daily range): BP systolic 116–137; BP diastolic 55–87; PULSE 88–962; RESP 16–20; TEMP 35.2–36.8; O2SAT 93–98; BMI 27.4
[2022-07-05 05:25] LABS: Hematocrit 42.1 % (37.0-47.0); Hemoglobin 13.2 g/dl (12.0-16.0); Mean Corpuscular HGB Conc 31.4 g/dl (31.0-35.0); Mean Corpuscular Volume 89.2 fL (80.0-98.0); Mean Platelet Volume 12.3 fL (9.4-12.3); NRBC Pct Auto 0.1 /100WBC (0.0-0.2); Platelet Count 283 X10*3/uL (160-400); Red Blood Count 4.72 X10*6/uL (4.20-5.50); Red Cell Distribution Width 18.3 % (11.0-16.0)
[2022-07-05 05:32] LABS: WBC ABN SCTR FOR CBC 1; White Blood Count 17.9 X10*3/uL (4.8-10.8)
[2022-07-05 05:52] LABS: Band Neutrophils Percent 4 % (3-5); Basophils Abs Manual 0.7 X10*3/uL (0.0-0.2); Basophils Percent Manual 4 % (0-2); Eosinophils Absolute Manual 0.2 X10*3/uL (0.0-0.4); Eosinophils Percent Manual 1 % (0-4); Lymphocytes Absolute Manual 0.5 X10*3/uL (1.2-4.9); Lymphocytes Percent Manual 3 % (20-40); Monocytes Absolute Manual 0.9 X10*3/uL (0.1-1.2); Monocytes Percent Manual 5 % (2-11); Neutrophils Absolute Manual 15.6 X10*3/uL (2.0-8.3); Neutrophils Percent Manual 83 % (45-73)
[2022-07-05 05:53] LABS: Acanthocytes 1+ (0-2) /OIF; Burr Cells 1+ (0-2) /OIF; Large Platelet PRESENT; Macrocytosis 1+ (5-14) /OIF; Ovalocytes 1+ (5-14) /OIF; Platelet Estimate NORMAL (NORMAL); Platelet Morphology Comment NORMAL; RBC Morphology NOTED; Smudge Cells PRESENT; Toxic Vacuolation PRESENT
[2022-07-05 05:58] LABS: Anion Gap 18 (12-20); Blood Urea Nitrogen 21 mg/dL (9-16); Calcium 8.8 mg/dL (8.4-10.2); Carbon Dioxide 26 mmol/L (22-29); Chloride 105 mmol/L (96-108); Creatinine Clr Calc Pharmacy 33.6; Estimated Glomerular Filt Rate 49; Glucose Random 51 mg/dL (60-115); Potassium 5.1 mmol/L (3.3-5.1); Sodium 144 mmol/L (135-145)
[2022-07-05] MEDS: Glucose Gel 15 GM GEL..GRAM. PO (06:20)
--- NOTE | 2022-07-05 06:29 | PC.NURSE ---
Critical blood glucose at 51, pt given glucose gel and juice, will reassess sugar. Pt has been resting in bed, attempted to get out of bed twice overnight but was redirected and placed back in bed. Pt has no complaints at this time.
[2022-07-05 06:57] LABS: Glucose, Whole Blood 77 mg/dL (60-115)
[2022-07-05] MEDS: Albuterol/Iprat 2.5/0.5MG 3 ML AMPUL.NEB INHALE ×3 (07:31→18:12)
[2022-07-05] MEDS: 0.9 % Sodium Chloride Flush 3 ML SYRINGE IVFLUSH ×2 (08:03→15:34)
[2022-07-05] MEDS: Lactated Ringers 1,000 ML 100 ML IVCONT (10:30)
[2022-07-05] MEDS: Ascorbic Acid 500 MG TABLET 1000 MG PO (10:32)
[2022-07-05] MEDS: NaPROXEN 250 MG TABLET PO ×2 (10:32→19:51)
[2022-07-05] MEDS: Multivitamin TABLET 1 TAB PO (10:32)
[2022-07-05] MEDS: buPROPion HCl XL 300 MG TAB.ER.24H PO (10:32)
[2022-07-05] MEDS: Pregabalin 25 MG CAPSULE PO (10:32)
[2022-07-05] MEDS: Anastrozole 1 MG TABLET PO (10:32)
[2022-07-05] MEDS: Donepezil HCl 5 MG TABLET PO (10:32)
[2022-07-05] MEDS: Aspirin Enteric Coated 81 MG TABLET.DR PO (10:32)
[2022-07-05 12:58] LABS: Ammonia 47 umol/L (13-55); Anion Gap 13 (12-20); Blood Urea Nitrogen 22 mg/dL (9-16); Calcium 8.5 mg/dL (8.4-10.2); Carbon Dioxide 26 mmol/L (22-29); Chloride 108 mmol/L (96-108); Creatinine Clr Calc Pharmacy 36.3; Estimated Glomerular Filt Rate 49; Glucose Random 93 mg/dL (60-115); Potassium 4.9 mmol/L (3.3-5.1); Sodium 142 mmol/L (135-145)
[2022-07-05 13:10] LABS: Troponin-I High Sensitivity 73.9 ng/L (<3.5-17.0)
--- NOTE | 2022-07-05 13:11 | MHC.CM.PN ---
Addendum entered by Sera Hsu RN 07/05/22 13:21: SISTER, DERIC, NOT COMFORTABLE SIGNING IMM AND ASKS THAT IT BE LEFT FOR PATIENT'S SPOUSE. IMM 07/05 LEFT IN ROOM CASE MANAGEMENT CONTACT NAME WRITTEN ON WHITE BOARD Original Note: PATIENT LIVES WITH HER SISTER AND PATIENT'S SPOUSE (DR. ZAMORA) COPY OF HCP TO BE REQUESTED, ONLY [facility] ON FILE PATIENT RELIES ON 3 L O2 AT HOME AND SISTER (DERIC) BELIEVES [employer] IS THE AGENCY THAT SUPPLIES O2. PATIENT HAS A CANE, WHEELCHAIR, AND ROLLATOR IN THE HOME NO [facility] SERVICES SISTER (IN ROOM) IS REVIEWING THE IMM DELIVERY 07/05 PRIOR TO SIGNING.
--- NOTE | 2022-07-05 13:13 | P.PNIM_ITS ---
Subjective Subjective Date of Service: 07/06/22 Interval History: f/u on metabolic encephalopathy UTI. Interval history: Patient is more lucid this morning Review of Systems Less confusion no chest pain or shortness of breath Physical Exam Vital Signs: Vital Signs: Last Vital Signs Temp 95.4 F L 07/05/22 08:00 Pulse 88 07/05/22 11:52 Resp 18 07/05/22 11:52 BP 130/74 07/05/22 08:00 Pulse Ox 95 07/05/22 08:00 O2 Del Method Nasal Cannula 07/05/22 08:00 O2 Flow Rate 2 07/05/22 08:00 BMI result Body Mass Index 27.4 Const: Other: General: patient was pleasant, oriented to self and place but was not alert to date time Resp: CTA bilateral, no respiratory difficulties CVS: S1,S2,RRR, bilateral pedal edema, 2+ GI: +BS, NT, no distention Skin: No rash Neuro: motor grossly intact Psych: appropriate affect Objective Data Active Medications Acetaminophen (Acetaminophen 325 Mg Tablet) 650 mg PO Q6H PRN PRN Reason: Pain, Mild (Pain Scale 1-3) Albuterol Sulfate (Albuterol Sulfate 90 Mcg 8 Gm Inhaler) 2 puff INHALE RQ6H PRN PRN Reason: shortness of breath or wheezing Albuterol/Ipratropium (Albuterol/Iprat 2.5/0.5mg 3 Ml Ampul.Neb) 3 ml INHALE RQID [facility] Last Admin: 07/05/22 11:52 Dose: 3 ml Documented By: HENRRY Anastrozole (Anastrozole 1 Mg Tablet) 1 mg PO DAILY [facility] Last Admin: 07/05/22 10:32 Dose: 1 mg Documented By: AKILA Ascorbic Acid (Ascorbic Acid 500 Mg Tablet) 1,000 mg PO DAILY [facility] Last Admin: 07/05/22 10:32 Dose: 1,000 mg Documented By: AKILA Aspirin (Aspirin Enteric Coated 81 Mg Tablet.) 81 mg PO DAILY [facility] Last Admin: 07/05/22 10:32 Dose: 81 mg Documented By: AKILA Bupropion HCl (Bupropion Hcl Xl 300 Mg Tab.Er.24h) 300 mg PO DAILY [facility] Last Admin: 07/05/22 10:32 Dose: 300 mg Documented By: AKILA Docusate Sodium (Docusate Sodium 100 Mg Capsule) 100 mg PO DAILY PRN PRN Reason: Constipation Donepezil HCl (Donepezil Hcl 5 Mg Tablet) 5 mg PO DAILY [facility] Last Admin: 07/05/22 10:32 Dose: 5 mg Documented By: AKILA Enoxaparin Sodium (Enoxaparin Sodium 40 Mg/0.4 Ml Syringe) 40 mg SUBCUT Q24H [facility] Last Admin: 07/04/22 23:02 Dose: 40 mg Documented By: MARK Famotidine (Famotidine 20 Mg Tablet) 40 mg PO BEDTIME [facility] Last Admin: 07/04/22 23:02 Dose: 40 mg Documented By: MARK Lactated Ringer's (Lr) 1,000 mls @ 100 mls/hr IVCONT .Q10H [facility] Last Admin: 07/05/22 10:30 Dose: 100 mls/hr Documented By: AKILA Ceftriaxone Sodium 1 gm/ (Sodium Chloride) 50 mls @ 100 mls/hr IV Q24H [facility] Stop: 07/08/22 22:29 Magnesium Oxide (Magnesium Oxide 400 Mg Tablet) 200 mg PO BEDTIME [facility] Last Admin: 07/04/22 23:02 Dose: 200 mg Documented By: MARK Montelukast Sodium (Montelukast Sodium 10 Mg Tablet) 10 mg PO BEDTIME [facility] Multivitamins/Vitamin C (Multivitamin Tablet) 1 tab PO DAILY [facility] Last Admin: 07/05/22 10:32 Dose: 1 tab Documented By: AKILA Naproxen (Naproxen 250 Mg Tablet) 250 mg PO BID [facility] Last Admin: 07/05/22 10:32 Dose: 250 mg Documented By: AKILA Patient Own Med ( Budesonide 0.5 Mg/2 Ml Suspension For Nebulization) 0.5 mg INHALE RDAILY [facility] Pt Own Med ( Anagrelide 1 Mg Capsule) 2 mg PO DAILY [facility] Pharmacy Consult (Consult Rx Perform Med Rec) 1 each MISCELLANE ONCE PRN PRN Reason: Consult order Pregabalin (Pregabalin 25 Mg Capsule) 25 mg PO DAILY [facility] Last Admin: 07/05/22 10:32 Dose: 25 mg Documented By: AKILA Pregabalin (Pregabalin 25 Mg Capsule) 50 mg PO BEDTIME [facility] Last Admin: 07/04/22 23:01 Dose: 50 mg Documented By: MARK Quetiapine Fumarate (Quetiapine Fumarate 25 Mg Tablet) 25 mg PO BEDTIME [facility] Last Admin: 07/04/22 23:01 Dose: 25 mg Documented By: MARK Sodium Chloride (0.9 % Sodium Chloride Flush 3 Ml Syringe) 3 ml IVFLUSH QSHIFT [facility] Last Admin: 07/05/22 08:03 Dose: 3 ml Documented By: ORQUIDEA Vitamin D (Cholecalciferol (Vitamin D3) 25 Mcg Tablet) 25 mcg PO BEDTIME [facility] Labs 07/05/22 05:12 07/05/22 12:32 Labs: Laboratory Results - last 24 hr 07/04/22 07/04/22 07/04/22 19:55 19:55 19:55 MCV MCH MCHC RDW Plt Count MPV Immature Gran % (Auto) Neut % (Auto) Lymph % (Auto) [place] % (Auto) Eos % (Auto) Baso % (Auto) Lymph # (Auto) [place] # (Auto) Eos # (Auto) Baso # (Auto) Abs Immat Gran (auto) Absolute Neuts (auto) Absolute Nucleated RBC Nucleated RBC % (auto) Neutrophils % (Manual) Band Neutrophils % Lymphocytes % (Manual) Monocytes % (Manual) Eosinophils % (Manual) Basophils % (Manual) Metamyelocytes % Abs Neuts (Manual) Lymphocytes # (Manual) Monocytes # (Manual) Eosinophils # (Manual) Basophils # (Manual) Metamyelocytes # Smudge Cells Toxic Vacuolation Platelet Estimate Large Platelets Plt Morphology Comment RBC Morphology Macrocytosis Ovalocytes [place] Cells Acanthocytes (Spur) Anion Gap Estim Creat Clear Calc Estimated GFR POC Glucose Random Glucose Lactic Acid 3.6 H* Calcium Total Bilirubin Direct Bilirubin AST ALT Alkaline Phosphatase Ammonia Troponin I High Sens 67.5 H* Total Protein Albumin Lipase Urine Color Urine Appearance Urine pH Ur Specific [place] Urine Protein Urine Glucose (UA) Urine Ketones Urine Blood Urine Nitrite Ur Leukocyte Esterase Urine RBC Urine WBC Ur Squamous Epith Cells Urine Bacteria Hyaline Casts COVID-19 ([facility]) Negative COVID-19 Clin Com See Note 07/04/22 07/04/22 07/04/22 19:56 19:56 21:50 MCV 89.0 MCH 27.6 MCHC 31.0 RDW 18.6 H Plt Count 402 H D MPV 11.9 Immature Gran % (Auto) Cancelled Neut % (Auto) Cancelled Lymph % (Auto) Cancelled [place] % (Auto) Cancelled Eos % (Auto) Cancelled Baso % (Auto) Cancelled Lymph # (Auto) Cancelled [place] # (Auto) Cancelled Eos # (Auto) Cancelled Baso # (Auto) Cancelled Abs Immat Gran (auto) Cancelled Absolute Neuts (auto) Cancelled Absolute Nucleated RBC 0.020 H Nucleated RBC % (auto) 0.1 Neutrophils % (Manual) 81 H Band Neutrophils % 3 Lymphocytes % (Manual) 8 L Monocytes % (Manual) 5 Eosinophils % (Manual) 1 Basophils % (Manual) 1 Metamyelocytes % 1 Abs Neuts (Manual) 13.5 H Lymphocytes # (Manual) 1.3 Monocytes # (Manual) 0.8 Eosinophils # (Manual) 0.2 Basophils # (Manual) 0.2 Metamyelocytes # 0.2 Smudge Cells Toxic Vacuolation Platelet Estimate NORMAL Large Platelets PRESENT Plt Morphology Comment NORMAL RBC Morphology NOTED Macrocytosis Ovalocytes 1+ (5-14) Stewart Cells 1+ (0-2) Acanthocytes (Spur) Anion Gap 21 H Estim Creat Clear Calc 34.2 Estimated GFR 50 POC Glucose Random Glucose 64 Lactic Acid Calcium 9.7 D Total Bilirubin 1.7 H Direct Bilirubin 0.8 H AST 52 H ALT 25 Alkaline Phosphatase 92 Ammonia Troponin I High Sens Total Protein 6.9 Albumin 3.7 Lipase 23 Urine Color Dark Yellow Urine Appearance Cloudy Urine pH 5.5 Ur Specific [place] >= 1.030 H Urine Protein 30 (1+) H Urine Glucose (UA) Negative Urine Ketones Trace Urine Blood Negative Urine Nitrite Positive H Ur Leukocyte Esterase Moderate (2+) H Urine RBC 0-2 Urine WBC 11-20 Ur Squamous Epith Cells 6-10 Urine Bacteria 4+ Hyaline Casts 11-20 COVID-19 ([facility]) COVID-19 Clin Com 07/04/22 07/04/22 07/05/22 22:29 23:28 05:12 MCV 89.2 MCH 28.0 MCHC 31.4 RDW 18.3 H Plt Count 283 D MPV 12.3 Immature Gran % (Auto) Cancelled Neut % (Auto) Cancelled Lymph % (Auto) Cancelled [place] % (Auto) Cancelled Eos % (Auto) Cancelled Baso % (Auto) Cancelled Lymph # (Auto) Cancelled [place] # (Auto) Cancelled Eos # (Auto) Cancelled Baso # (Auto) Cancelled Abs Immat Gran (auto) Cancelled Absolute Neuts (auto) Cancelled Absolute Nucleated RBC 0.020 H Nucleated RBC % (auto) 0.1 Neutrophils % (Manual) 83 H Band Neutrophils % 4 Lymphocytes % (Manual) 3 L Monocytes % (Manual) 5 Eosinophils % (Manual) 1 Basophils % (Manual) 4 H Metamyelocytes % Abs Neuts (Manual) 15.6 H Lymphocytes # (Manual) 0.5 L Monocytes # (Manual) 0.9 Eosinophils # (Manual) 0.2 Basophils # (Manual) 0.7 H Metamyelocytes # Smudge Cells PRESENT Toxic Vacuolation PRESENT Platelet Estimate NORMAL Large Platelets PRESENT Plt Morphology Comment NORMAL RBC Morphology NOTED Macrocytosis 1+ (5-14) Ovalocytes 1+ (5-14) [place] Cells 1+ (0-2) Acanthocytes (Spur) 1+ (0-2) Anion Gap Estim Creat Clear Calc Estimated GFR POC Glucose Random Glucose Lactic Acid 1.9 Calcium Total Bilirubin Direct Bilirubin AST ALT Alkaline Phosphatase Ammonia Troponin I High Sens 65.2 H* Total Protein Albumin Lipase Urine Color Urine Appearance Urine pH Ur Specific [place] Urine Protein Urine Glucose (UA) Urine Ketones Urine Blood Urine Nitrite Ur Leukocyte Esterase Urine RBC Urine WBC Ur Squamous Epith Cells Urine Bacteria Hyaline Casts COVID-19 ([facility]) COVID-19 Clin Com 07/05/22 07/05/22 07/05/22 05:12 06:53 12:32 MCV MCH MCHC RDW Plt Count MPV Immature Gran % (Auto) Neut % (Auto) Lymph % (Auto) [place] % (Auto) Eos % (Auto) Baso % (Auto) Lymph # (Auto) [place] # (Auto) Eos # (Auto) Baso # (Auto) Abs Immat Gran (auto) Absolute Neuts (auto) Absolute Nucleated RBC Nucleated RBC % (auto) Neutrophils % (Manual) Band Neutrophils % Lymphocytes % (Manual) Monocytes % (Manual) Eosinophils % (Manual) Basophils % (Manual) Metamyelocytes % Abs Neuts (Manual) Lymphocytes # (Manual) Monocytes # (Manual) Eosinophils # (Manual) Basophils # (Manual) Metamyelocytes # Smudge Cells Toxic Vacuolation Platelet Estimate Large Platelets Plt Morphology Comment RBC Morphology Macrocytosis Ovalocytes [place] Cells Acanthocytes (Spur) Anion Gap 18 Estim Creat Clear Calc 33.6 Estimated GFR 49 POC Glucose 77 Random Glucose 51 L* Lactic Acid Calcium 8.8 D Total Bilirubin Direct Bilirubin AST ALT Alkaline Phosphatase Ammonia 47 Troponin I High Sens Total Protein Albumin Lipase Urine Color Urine Appearance Urine pH Ur Specific [place] Urine Protein Urine Glucose (UA) Urine Ketones Urine Blood Urine Nitrite Ur Leukocyte Esterase Urine RBC Urine WBC Ur Squamous Epith Cells Urine Bacteria Hyaline Casts COVID-19 ([facility]NALD[facility]) COVID-[address] Com 07/05/22 07/05/22 12:32 12:32 MCV MCH MCHC RDW Plt Count MPV Immature Gran % (Auto) Neut % (Auto) Lymph % (Auto) [place] % (Auto) Eos % (Auto) Baso % (Auto) Lymph # (Auto) [place] # (Auto) Eos # (Auto) Baso # (Auto) Abs Immat Gran (auto) Absolute Neuts (auto) Absolute Nucleated RBC Nucleated RBC % (auto) Neutrophils % (Manual) Band Neutrophils % Lymphocytes % (Manual) Monocytes % (Manual) Eosinophils % (Manual) Basophils % (Manual) Metamyelocytes % Abs Neuts (Manual) Lymphocytes # (Manual) Monocytes # (Manual) Eosinophils # (Manual) Basophils # (Manual) Metamyelocytes # Smudge Cells Toxic Vacuolation Platelet Estimate Large Platelets Plt Morphology Comment RBC Morphology Macrocytosis Ovalocytes [place] Cells Acanthocytes (Spur) Anion Gap 13 Estim Creat Clear Calc 36.3 Estimated GFR 49 POC Glucose Random Glucose 93 Lactic Acid Calcium 8.5 Total Bilirubin Direct Bilirubin AST ALT Alkaline Phosphatase Ammonia Troponin I High Sens 73.9 H* Total Protein Albumin Lipase Urine Color Urine Appearance Urine pH Ur Specific [place] Urine Protein Urine Glucose (UA) Urine Ketones Urine Blood Urine Nitrite Ur Leukocyte Esterase Urine RBC Urine WBC Ur Squamous Epith Cells Urine Bacteria Hyaline Casts COVID-19 ([facility]) COVID-19 Clin Com Microbiology Microbiology Results: Microbiology 07/04/22 22:51 Urine Culture - Preliminary Urine clean catch - Urine mccann top Culture in progress. Assessment and Plan (1) Acute metabolic encephalopathy: Status: Acute (2) UTI (urinary tract infection): Status: Acute Plan 77-year-old female with history of cerebral aneurysm s/p repair with subsequent cerebral infarction, unspecified dementia, chronic hypoxemic respiratory failure on supplemental O2 due to severe emphysema, hypertension, GERD, cardiomegaly, history of breast cancer on anastrozole, osteoporosis, thrombocytosis on anagrelide, history of rheumatic fever, and JALEEL admitted for acute metabolic encephalopathy due to UTI. ID consult # acute metabolic encephalopathy related to UTI -normal ammonia level -head CT negative -leukocytosis 17? No other sirs criteria, no sepsis -IV ceftriaxone 1 g daily x5 days (initiated 07/04) -follow UC, BC -follow CBC -monitor mentation # acute hyperkalemia related to dehydration -K 5.6-->4.9 today -hold losartan at this time -follow BMP # acute lactic acidosis -likely related to tissue hypoperfusion in the setting of dehydration, not severe sepsis #Elevated troponin -Initiatial 67, repeat 65 and 72, I don't think there is acute myocardial injury and more likely from demand from aculte illness -no CP, EKG nonischemic, willl discuss with cardiology # chronic hypoxemic respiratory failure due to severe emphysema-no acute exacerbation -continue supplemental O2 -continue home inhalers/nebulizers # unspecified dementia -continue donepezil and Seroquel -ovoid additional QT prolonging agents if possible due to prolonged QTC from medication use # history CVA/cerebral aneurysm -continue aspirin # hypertension-reasonably controlled -hold losartan in setting of hyperkalemia, resume as appropriate # GERD -continue home meds # chronic thrombocytosis -likely related to myelodysplastic syndrome -continue anagrelide DVT prophylaxis-Lovenox DNR/DNI per [facility]OLST form- confirmed with Time Spent With Patient Time: Total time managing care of this patient today ____ minutes. Quality Stroke Does the patient have a stroke diagnosis?: No VTE Prior VTE?: No VTE Risk Level:: Medical - moderate - high VTE Device Contraindication: Treatment Not Indicated VTE Drug Contraindication: N/A - Med Ordered
--- NOTE | 2022-07-05 14:01 | P.CONCA_ITS ---
History of Present Illness History of Present Illness Date of Service: 07/06/22 Requesting physician: Nino Mejia Chief complaint: Elevated troponin Narrative: Patient was seen on 07/05/2022. [facility] and no could not be dictated. 77-year-old female who is presenting with confusion and urinary tract infection. She was noticed to have mildly elevated troponin levels. She has no chest discomfort shortness of breath. She has not had any similar symptoms in the past. She was quite confused on admission and apparently is improving with IV antibiotics. She was given IV fluids in the emergency department and is curre ntly getting Ringer's lactate and appears to be short of breath with elevated JVD. She is denying any dyspnea currently. Looks generally unwell. [facility] Past Medical History Medical History Cardiomegaly Cerebral aneurysm Cerebral infarct Chronic hypoxemic respiratory failure COPD (chronic obstructive pulmonary disease) Emphysema lung Former smoker GERD (gastroesophageal reflux disease) HTN (hypertension) Neuropathy JALEEL (obstructive sleep apnea) Osteoarthritis Osteoporosis Other thrombocytosis PVC (premature ventricular contraction) Rheumatic fever Sepsis Thoracic kyphosis Thrombocytosis Surgical History Surgical History H/O bilateral breast reduction surgery H/O breast reconstruction H/O cerebral aneurysm repair H/O right mastectomy Social History Social History Household Members: Spouse Housing: House Patient Tobacco Use Status: Former Tobacco user Advance Directives Date on File: 09/26/20 service: No Current occupational status: retired Meds Allergies Allergy/AdvReac Type Severity Reaction Status Date / Time fluoxetine [From PROZAC] Allergy Intermediate UNKNOWN Unverified 03/28/22 15:38 dexamethasone [From MAXIDEX] Allergy Mild RASH Unverified 03/28/22 15:38 hydrochlorothiazide Allergy Unknown RASH Unverified 03/28/22 15:38 [Hydrochlorothiazide] moxifloxacin [Moxifloxacin] Allergy Unknown RASH Unverified 03/28/22 15:38 Serotonin 5HT-3 Antagonists AdvReac Unknown UNKNOWN Unverified 03/28/22 15:38 [Selective 5-HT3 Receptor Antagonist] trazodone AdvReac Unknown nausea and Verified 03/28/22 15:38 vomiting Tricyclic Antidepressants AdvReac Unknown UNKNOWN Unverified 03/28/22 15:38 and Tricy [TRICYCLIC COMPOUNDS] From MAXIDEX Allergy Unknown UNKNOWN Uncoded 03/28/22 15:38 Maxide Allergy Unknown Hives Uncoded 03/28/22 15:38 SSRI(Prozac) Allergy Unknown Unknown Uncoded 03/28/22 15:38 TCA(Nortripyline) Allergy Unknown Unknown Uncoded 03/28/22 15:38 NORTRIPTILIENE AdvReac Intermediate UNKNOWN Uncoded 03/28/22 15:38 Active Medications: Current Medications Acetaminophen (Acetaminophen 325 Mg Tablet) 650 mg PO Q6H PRN PRN Reason: Pain, Mild (Pain Scale 1-3) Albuterol Sulfate (Albuterol Sulfate 90 Mcg 8 Gm Inhaler) 2 puff INHALE RQ6H PRN PRN Reason: shortness of breath or wheezing Albuterol/Ipratropium (Albuterol/Iprat 2.5/0.5mg 3 Ml Ampul.Neb) 3 ml INHALE RQID [facility] Last Admin: 07/05/22 11:52 Dose: 3 ml Anastrozole (Anastrozole 1 Mg Tablet) 1 mg PO DAILY [facility] Last Admin: 07/05/22 10:32 Dose: 1 mg Ascorbic Acid (Ascorbic Acid 500 Mg Tablet) 1,000 mg PO DAILY [facility] Last Admin: 07/05/22 10:32 Dose: 1,000 mg Aspirin (Aspirin Enteric Coated 81 Mg Tablet.Dr) 81 mg PO DAILY [facility] Last Admin: 07/05/22 10:32 Dose: 81 mg Bupropion HCl (Bupropion Hcl Xl 300 Mg Tab.Er.24h) 300 mg PO DAILY [facility] Last Admin: 07/05/22 10:32 Dose: 300 mg Docusate Sodium (Docusate Sodium 100 Mg Capsule) 100 mg PO DAILY PRN PRN Reason: Constipation Donepezil HCl (Donepezil Hcl 5 Mg Tablet) 5 mg PO DAILY [facility] Last Admin: 07/05/22 10:32 Dose: 5 mg Enoxaparin Sodium (Enoxaparin Sodium 40 Mg/0.4 Ml Syringe) 40 mg SUBCUT Q24H [facility] Last Admin: 07/04/22 23:02 Dose: 40 mg Famotidine (Famotidine 20 Mg Tablet) 40 mg PO BEDTIME [facility] Last Admin: 07/04/22 23:02 Dose: 40 mg Lactated Ringer's (Lr) 1,000 mls @ 100 mls/hr IVCONT .Q10H [facility] Last Admin: 07/05/22 10:30 Dose: 100 mls/hr Ceftriaxone Sodium 1 gm/ (Sodium Chloride) 50 mls @ 100 mls/hr IV Q24H [facility] Stop: 07/08/22 22:29 Magnesium Oxide (Magnesium Oxide 400 Mg Tablet) 200 mg PO BEDTIME [facility] Last Admin: 07/04/22 23:02 Dose: 200 mg Montelukast Sodium (Montelukast Sodium 10 Mg Tablet) 10 mg PO BEDTIME [facility] Multivitamins/Vitamin C (Multivitamin Tablet) 1 tab PO DAILY [facility] Last Admin: 07/05/22 10:32 Dose: 1 tab Naproxen (Naproxen 250 Mg Tablet) 250 mg PO BID [facility] Last Admin: 07/05/22 10:32 Dose: 250 mg Patient Own Med ( Budesonide 0.5 Mg/2 Ml Suspension For Nebulization) 0.5 mg INHALE RDAILY [facility] Pt Own Med ( Anagrelide 1 Mg Capsule) 2 mg PO DAILY [facility] Last Admin: 07/05/22 13:28 Dose: 2 mg Pharmacy Consult (Consult Rx Perform Med Rec) 1 each MISCELLANE ONCE PRN PRN Reason: Consult order Pregabalin (Pregabalin 25 Mg Capsule) 25 mg PO DAILY [facility] Last Admin: 07/05/22 10:32 Dose: 25 mg Pregabalin (Pregabalin 25 Mg Capsule) 50 mg PO BEDTIME [facility] Last Admin: 07/04/22 23:01 Dose: 50 mg Quetiapine Fumarate (Quetiapine Fumarate 25 Mg Tablet) 25 mg PO BEDTIME [facility] Last Admin: 07/04/22 23:01 Dose: 25 mg Sodium Chloride (0.9 % Sodium Chloride Flush 3 Ml Syringe) 3 ml IVFLUSH QSHIFT [facility] Last Admin: 07/05/22 08:03 Dose: 3 ml Vitamin D (Cholecalciferol (Vitamin D3) 25 Mcg Tablet) 25 mcg PO BEDTIME [facility] Home Medications Medication Instructions Recorded Confirmed Last Taken Type anastrozole 1 mg tablet 1 tab PO DAILY 09/25/20 07/04/22 09/02/21 History ascorbic acid (vitamin C) 1,000 mg 1,000 mg PO DAILY 09/25/20 07/04/22 09/02/21 History tablet (Vitamin C) losartan 100 mg tablet 1 tab PO DAILY 09/25/20 07/04/22 09/02/21 History magnesium 250 mg tablet 250 mg PO QPM 09/25/20 07/04/22 09/02/21 History pregabalin 25 mg capsule 1 cap PO QAM 09/25/20 07/04/22 09/02/21 History quetiapine 25 mg tablet 1 tab PO BEDTIME 09/25/20 07/04/22 09/01/21 History aspirin 81 mg tablet,delayed 81 mg PO DAILY 09/02/21 07/04/22 09/02/21 History release bupropion HCl 300 mg 24 hr tablet, 1 tab PO DAILY 09/02/21 07/04/22 09/02/21 History extended release cholecalciferol (vitamin D3) 25 25 mcg PO BEDTIME 09/02/21 07/04/22 09/01/21 History mcg (1,000 unit) tablet donepezil 5 mg tablet 1 tab PO DAILY 09/02/21 07/04/22 09/02/21 History anagrelide 1 mg capsule 2 mg PO DAILY 09/03/21 07/04/22 Unknown History meloxicam 7.5 mg tablet 7.5 mg PO DAILY 03/28/22 07/04/22 Unknown History famotidine 40 mg tablet 40 mg PO QPM 07/04/22 07/04/22 Unknown History montelukast 10 mg tablet 10 mg PO BEDTIME 07/04/22 07/04/22 Unknown History multivitamin 1 tab PO DAILY 07/04/22 07/04/22 Unknown History pregabalin 25 mg capsule 2 mg PO QPM 07/04/22 07/04/22 Unknown History Physical Exam Vital Signs: Vital Signs: Last Vital Signs Temp 95.4 F L 07/05/22 08:00 Pulse 88 07/05/22 11:52 Resp 18 07/05/22 11:52 BP 130/74 07/05/22 08:00 Pulse Ox 95 07/05/22 08:00 O2 Del Method Nasal Cannula 07/05/22 08:00 O2 Flow Rate 2 07/05/22 08:00 BMI result Body Mass Index 27.4 GENERAL APPEARANCE: Ill-appearing. Mildly short of breath. NECK: no carotid bruit, positive jugular venous distention. SKIN: no suspicious lesions, warm and dry. HEART: no murmurs, regular rate and rhythm. LUNGS: Mild expiratory wheezes. ABDOMEN: soft, nontender. EXTREMITIES: no edema. PERIPHERAL PULSES: equal. NEUROLOGIC: No gross deficits, AAO X 3 Objective Labs and Meds 07/05/22 05:12 07/05/22 12:32 Lab results: Laboratory Results - last 24 hr 07/04/22 07/04/22 07/04/22 19:55 19:55 19:55 WBC RBC Hgb Hct MCV MCH MCHC RDW Plt Count MPV Immature Gran % (Auto) Neut % (Auto) Lymph % (Auto) [place] % (Auto) Eos % (Auto) Baso % (Auto) Lymph # (Auto) [place] # (Auto) Eos # (Auto) Baso # (Auto) Abs Immat Gran (auto) Absolute Neuts (auto) Absolute Nucleated RBC Nucleated RBC % (auto) Neutrophils % (Manual) Band Neutrophils % Lymphocytes % (Manual) Monocytes % (Manual) Eosinophils % (Manual) Basophils % (Manual) Metamyelocytes % Abs Neuts (Manual) Lymphocytes # (Manual) Monocytes # (Manual) Eosinophils # (Manual) Basophils # (Manual) Metamyelocytes # Smudge Cells Toxic Vacuolation Platelet Estimate Large Platelets Plt Morphology Comment RBC Morphology Macrocytosis Ovalocytes [place] Cells Acanthocytes (Spur) Sodium Potassium Chloride Carbon Dioxide Anion Gap BUN Creatinine Estim Creat Clear Calc Estimated GFR POC Glucose Random Glucose Lactic Acid 3.6 H* Calcium Total Bilirubin Direct Bilirubin AST ALT Alkaline Phosphatase Ammonia Troponin I High Sens 67.5 H* Total Protein Albumin Lipase Urine Color Urine Appearance Urine pH Ur Specific [place] Urine Protein Urine Glucose (UA) Urine Ketones Urine Blood Urine Nitrite Ur Leukocyte Esterase Urine RBC Urine WBC Ur Squamous Epith Cells Urine Bacteria Hyaline Casts COVID-19 ([facility]) Negative COVID-19 Clin Com See Note 07/04/22 07/04/22 07/04/22 19:56 19:56 21:50 WBC 16.1 H RBC 5.18 Hgb 14.3 Hct 46.1 MCV 89.0 MCH 27.6 MCHC 31.0 RDW 18.6 H Plt Count 402 H D MPV 11.9 Immature Gran % (Auto) Cancelled Neut % (Auto) Cancelled Lymph % (Auto) Cancelled [place] % (Auto) Cancelled Eos % (Auto) Cancelled Baso % (Auto) Cancelled Lymph # (Auto) Cancelled [place] # (Auto) Cancelled Eos # (Auto) Cancelled Baso # (Auto) Cancelled Abs Immat Gran (auto) Cancelled Absolute Neuts (auto) Cancelled Absolute Nucleated RBC 0.020 H Nucleated RBC % (auto) 0.1 Neutrophils % (Manual) 81 H Band Neutrophils % 3 Lymphocytes % (Manual) 8 L Monocytes % (Manual) 5 Eosinophils % (Manual) 1 Basophils % (Manual) 1 Metamyelocytes % 1 Abs Neuts (Manual) 13.5 H Lymphocytes # (Manual) 1.3 Monocytes # (Manual) 0.8 Eosinophils # (Manual) 0.2 Basophils # (Manual) 0.2 Metamyelocytes # 0.2 Smudge Cells Toxic Vacuolation Platelet Estimate NORMAL Large Platelets PRESENT Plt Morphology Comment NORMAL RBC Morphology NOTED Macrocytosis Ovalocytes 1+ (5-14) [place] Cells 1+ (0-2) Acanthocytes (Spur) Sodium 144 Potassium 5.6 H Chloride 102 Carbon Dioxide 27 Anion Gap 21 H BUN 22 H Creatinine 1.07 Estim Creat Clear Calc 34.2 Estimated GFR 50 POC Glucose Random Glucose 64 Lactic Acid Calcium 9.7 D Total Bilirubin 1.7 H Direct Bilirubin 0.8 H AST 52 H ALT 25 Alkaline Phosphatase 92 Ammonia Troponin I High Sens Total Protein 6.9 Albumin 3.7 Lipase 23 Urine Color Dark Yellow Urine Appearance Cloudy Urine pH 5.5 Ur Specific [place] >= 1.030 H Urine Protein 30 (1+) H Urine Glucose (UA) Negative Urine Ketones Trace Urine Blood Negative Urine Nitrite Positive H Ur Leukocyte Esterase Moderate (2+) H Urine RBC 0-2 Urine WBC 11-20 Ur Squamous Epith Cells 6-10 Urine Bacteria 4+ Hyaline Casts 11-20 COVID-19 ([facility]) COVID-19 Clin Com 07/04/22 07/04/22 07/05/22 22:29 23:28 05:12 WBC 17.9 H RBC 4.72 Hgb 13.2 Hct 42.1 MCV 89.2 MCH 28.0 MCHC 31.4 RDW 18.3 H Plt Count 283 D MPV 12.3 Immature Gran % (Auto) Cancelled Neut % (Auto) Cancelled Lymph % (Auto) Cancelled [place] % (Auto) Cancelled Eos % (Auto) Cancelled Baso % (Auto) Cancelled Lymph # (Auto) Cancelled [place] # (Auto) Cancelled Eos # (Auto) Cancelled Baso # (Auto) Cancelled Abs Immat Gran (auto) Cancelled Absolute Neuts (auto) Cancelled Absolute Nucleated RBC 0.020 H Nucleated RBC % (auto) 0.1 Neutrophils % (Manual) 83 H Band Neutrophils % 4 Lymphocytes % (Manual) 3 L Monocytes % (Manual) 5 Eosinophils % (Manual) 1 Basophils % (Manual) 4 H Metamyelocytes % Abs Neuts (Manual) 15.6 H Lymphocytes # (Manual) 0.5 L Monocytes # (Manual) 0.9 Eosinophils # (Manual) 0.2 Basophils # (Manual) 0.7 H Metamyelocytes # Smudge Cells PRESENT Toxic Vacuolation PRESENT Platelet Estimate NORMAL Large Platelets PRESENT Plt Morphology Comment NORMAL RBC Morphology NOTED Macrocytosis 1+ (5-14) Ovalocytes 1+ (5-14) [place] Cells 1+ (0-2) Acanthocytes (Spur) 1+ (0-2) Sodium Potassium Chloride Carbon Dioxide Anion Gap BUN Creatinine Estim Creat Clear Calc Estimated GFR POC Glucose Random Glucose Lactic Acid 1.9 Calcium Total Bilirubin Direct Bilirubin AST ALT Alkaline Phosphatase Ammonia Troponin I High Sens 65.2 H* Total Protein Albumin Lipase Urine Color Urine Appearance Urine pH Ur Specific [place] Urine Protein Urine Glucose (UA) Urine Ketones Urine Blood Urine Nitrite Ur Leukocyte Esterase Urine RBC Urine WBC Ur Squamous Epith Cells Urine Bacteria Hyaline Casts COVID-19 ([facility]) COVID-19 Clin Com 07/05/22 07/05/22 07/05/22 05:12 06:53 12:32 WBC RBC Hgb Hct MCV MCH MCHC RDW Plt Count MPV Immature Gran % (Auto) Neut % (Auto) Lymph % (Auto) [place] % (Auto) Eos % (Auto) Baso % (Auto) Lymph # (Auto) [place] # (Auto) Eos # (Auto) Baso # (Auto) Abs Immat Gran (auto) Absolute Neuts (auto) Absolute Nucleated RBC Nucleated RBC % (auto) Neutrophils % (Manual) Band Neutrophils % Lymphocytes % (Manual) Monocytes % (Manual) Eosinophils % (Manual) Basophils % (Manual) Metamyelocytes % Abs Neuts (Manual) Lymphocytes # (Manual) Monocytes # (Manual) Eosinophils # (Manual) Basophils # (Manual) Metamyelocytes # Smudge Cells Toxic Vacuolation Platelet Estimate Large Platelets Plt Morphology Comment RBC Morphology Macrocytosis Ovalocytes [place] Cells Acanthocytes (Spur) Sodium 144 Potassium 5.1 Chloride 105 Carbon Dioxide 26 Anion Gap 18 BUN 21 H Creatinine 1.09 Estim Creat Clear Calc 33.6 Estimated GFR 49 POC Glucose 77 Random Glucose 51 L* Lactic Acid Calcium 8.8 D Total Bilirubin Direct Bilirubin AST ALT Alkaline Phosphatase Ammonia 47 Troponin I High Sens Total Protein Albumin Lipase Urine Color Urine Appearance Urine pH Ur Specific [place] Urine Protein Urine Glucose (UA) Urine Ketones Urine Blood Urine Nitrite Ur Leukocyte Esterase Urine RBC Urine WBC Ur Squamous Epith Cells Urine Bacteria Hyaline Casts COVID-19 ([facility]) COVID-19 [employer] Com 07/05/22 07/05/22 12:32 12:32 WBC RBC Hgb Hct MCV MCH MCHC RDW Plt Count MPV Immature Gran % (Auto) Neut % (Auto) Lymph % (Auto) [place] % (Auto) Eos % (Auto) Baso % (Auto) Lymph # (Auto) [place] # (Auto) Eos # (Auto) Baso # (Auto) Abs Immat Gran (auto) Absolute Neuts (auto) Absolute Nucleated RBC Nucleated RBC % (auto) Neutrophils % (Manual) Band Neutrophils % Lymphocytes % (Manual) Monocytes % (Manual) Eosinophils % (Manual) Basophils % (Manual) Metamyelocytes % Abs Neuts (Manual) Lymphocytes # (Manual) Monocytes # (Manual) Eosinophils # (Manual) Basophils # (Manual) Metamyelocytes # Smudge Cells Toxic Vacuolation Platelet Estimate Large Platelets Plt Morphology Comment RBC Morphology Macrocytosis Ovalocytes [place] Cells Acanthocytes (Spur) Sodium 142 Potassium 4.9 Chloride 108 Carbon Dioxide 26 Anion Gap 13 BUN 22 H Creatinine 1.08 Estim Creat Clear Calc 36.3 Estimated GFR 49 POC Glucose Random Glucose 93 Lactic Acid Calcium 8.5 Total Bilirubin Direct Bilirubin AST ALT Alkaline Phosphatase Ammonia Troponin I High Sens 73.9 H* Total Protein Albumin Lipase Urine Color Urine Appearance Urine pH Ur Specific [place] Urine Protein Urine Glucose (UA) Urine Ketones Urine Blood Urine Nitrite Ur Leukocyte Esterase Urine RBC Urine WBC Ur Squamous Epith Cells Urine Bacteria Hyaline Casts COVID-19 ([facility]) COVID-19 Clin Com Imaging Radiologist's impression: Impressions Chest X-Ray 07/04/22 19:47 IMPRESSION: Mild blunting of bilateral CP angle likely pleural thickening or tiny effusion. Otherwise rest of the lungs are clear. Head CT 07/04/22 20:30 IMPRESSION: 1. No evidence of acute intracranial hemorrhage or edematous territorial infarction. 2. Chronic regions of encephalomalacia involving the left insula and frontotemporal lobes. Moderate to extensive underlying microangiopathy and generalized cerebral volume loss. 3. Changes of prior left pterional craniotomy with aneurysm clips in the region of the anterior communicating artery and M1-M2 segment of the left MCA. Abdomen/Pelvis CT 07/04/22 21:07 IMPRESSION: 1. Small left-sided pleural effusion with bibasilar atelectasis versus infiltrates, new when compared to the prior CT. Prominent cardiomegaly and trace pericardial effusion, new when compared to the prior CT. 2. Cirrhotic liver with subcentimeter hepatic hypodensities, similar when compared to the prior CT. No new hepatic parenchymal lesion or biliary ductal dilatation. Redemonstration of varices, indicating a degree of portal hypertension. 3. Cholelithiasis without evidence of acute cholecystitis. 4. Trace ascites with diffuse mesenteric stranding as well as diffuse anasarca, new when compared to the prior examination. Fleischner guidelines were followed. Abdomen Ultrasound 07/04/22 22:11 IMPRESSION: Cholelithiasis without gallbladder wall thickening or pericholecystic free fluid to suggest acute cholecystitis. Assessment and Plan (1) Elevated troponin: Status: Acute (2) UTI (urinary tract infection): Status: Acute (3) Volume overload: Status: Acute Plan 77 year female who is presenting with change in mental status and urinary tract infection. She is on antibiotics. She was fluid resuscitated in the emergency department and is currently getting fluids too. She appears clinically volume overloaded. Stop the Ringer's lactate and give her Lasix IV. She is in mild congestive heart failure due to fluid resuscitation. She has mildly elevated troponin levels in the setting of severe urinary infection and leukocytosis. I think this is a type 2 event and does not require further workup. We will clinically follow her for the volume overload. She should be encouraged to drink water on her own and IV fluid should be avoided. Thank you for allowing me to participate in the care of your patient. Please feel free to contact me if you have any questions. Time Spent With Patient Time: Total time managing care of this patient today ____ minutes. Procedures Date of Service Date of Service: 07/05/22
[2022-07-05] MEDS: Furosemide 20 MG/2 ML VIAL IVPUSH (15:33)
--- NOTE | 2022-07-05 15:57 | P.CNID_ITS ---
History of Present Illness Data of Consult Service Date: 07/05/22 Requesting physician: Nino López Primary Care Provider: Cricket Allen MD HPI Reason for consult: confusion,leukocytosis,likely early sepsis She presents with more confusion at home on top of underlying dementia reported. She has has UTI with E coli 08/29 sensitive to Ceftriaxone. Urine shows leukocyte esterase and bacteria. Final culture and blood cultures are pending. She has h/o cerebral aneurysm and dementia. Review of Systems Review of Systems: Yes Unobtainable due to mental status PMFSH Past Medical History Medical History Cardiomegaly Cerebral aneurysm Cerebral infarct Chronic hypoxemic respiratory failure COPD (chronic obstructive pulmonary disease) Emphysema lung Former smoker GERD (gastroesophageal reflux disease) HTN (hypertension) Neuropathy JALEEL (obstructive sleep apnea) Osteoarthritis Osteoporosis Other thrombocytosis PVC (premature ventricular contraction) Rheumatic fever Sepsis Thoracic kyphosis Thrombocytosis Family History Family history: reviewed and not pertinent Surgical History Surgical History H/O bilateral breast reduction surgery H/O breast reconstruction H/O cerebral aneurysm repair H/O right mastectomy Social History Social History Household Members: Spouse Housing: House Patient Tobacco Use Status: Former Tobacco user Advance Directives Date on File: 09/26/20 service: No Current occupational status: retired Meds Allergies Allergy/AdvReac Type Severity Reaction Status Date / Time fluoxetine [From PROZAC] Allergy Intermediate UNKNOWN Unverified 03/28/22 15:38 dexamethasone [From MAXIDEX] Allergy Mild RASH Unverified 03/28/22 15:38 hydrochlorothiazide Allergy Unknown RASH Unverified 03/28/22 15:38 [Hydrochlorothiazide] moxifloxacin [Moxifloxacin] Allergy Unknown RASH Unverified 03/28/22 15:38 Serotonin 5HT-3 Antagonists AdvReac Unknown UNKNOWN Unverified 03/28/22 15:38 [Selective 5-HT3 Receptor Antagonist] trazodone AdvReac Unknown nausea and Verified 03/28/22 15:38 vomiting Tricyclic Antidepressants AdvReac Unknown UNKNOWN Unverified 03/28/22 15:38 and Tricy [TRICYCLIC COMPOUNDS] From MAXIDEX Allergy Unknown UNKNOWN Uncoded 03/28/22 15:38 Maxide Allergy Unknown Hives Uncoded 03/28/22 15:38 SSRI(Prozac) Allergy Unknown Unknown Uncoded 03/28/22 15:38 TCA(Nortripyline) Allergy Unknown Unknown Uncoded 03/28/22 15:38 NORTRIPTILIENE AdvReac Intermediate UNKNOWN Uncoded 03/28/22 15:38 Active Medications: Current Medications Acetaminophen (Acetaminophen 325 Mg Tablet) 650 mg PO Q6H PRN PRN Reason: Pain, Mild (Pain Scale 1-3) Albuterol Sulfate (Albuterol Sulfate 90 Mcg 8 Gm Inhaler) 2 puff INHALE RQ6H PRN PRN Reason: shortness of breath or wheezing Albuterol/Ipratropium (Albuterol/Iprat 2.5/0.5mg 3 Ml Ampul.Neb) 3 ml INHALE RQID [facility] Last Admin: 07/05/22 15:54 Dose: Not Given Anastrozole (Anastrozole 1 Mg Tablet) 1 mg PO DAILY [facility] Last Admin: 07/05/22 10:32 Dose: 1 mg Ascorbic Acid (Ascorbic Acid 500 Mg Tablet) 1,000 mg PO DAILY [facility] Last Admin: 07/05/22 10:32 Dose: 1,000 mg Aspirin (Aspirin Enteric Coated 81 Mg Tablet.Dr) 81 mg PO DAILY [facility] Last Admin: 07/05/22 10:32 Dose: 81 mg Bupropion HCl (Bupropion Hcl Xl 300 Mg Tab.Er.24h) 300 mg PO DAILY [facility] Last Admin: 07/05/22 10:32 Dose: 300 mg Docusate Sodium (Docusate Sodium 100 Mg Capsule) 100 mg PO DAILY PRN PRN Reason: Constipation Donepezil HCl (Donepezil Hcl 5 Mg Tablet) 5 mg PO DAILY [facility] Last Admin: 07/05/22 10:32 Dose: 5 mg Enoxaparin Sodium (Enoxaparin Sodium 40 Mg/0.4 Ml Syringe) 40 mg SUBCUT Q24H [facility] Last Admin: 07/04/22 23:02 Dose: 40 mg Famotidine (Famotidine 20 Mg Tablet) 40 mg PO BEDTIME [facility] Last Admin: 07/04/22 23:02 Dose: 40 mg Ceftriaxone Sodium 1 gm/ (Sodium Chloride) 50 mls @ 100 mls/hr IV Q24H [facility] Stop: 07/08/22 22:29 Magnesium Oxide (Magnesium Oxide 400 Mg Tablet) 200 mg PO BEDTIME [facility] Last Admin: 07/04/22 23:02 Dose: 200 mg Montelukast Sodium (Montelukast Sodium 10 Mg Tablet) 10 mg PO BEDTIME [facility] Multivitamins/Vitamin C (Multivitamin Tablet) 1 tab PO DAILY [facility] Last Admin: 07/05/22 10:32 Dose: 1 tab Naproxen (Naproxen 250 Mg Tablet) 250 mg PO BID [facility] Last Admin: 07/05/22 10:32 Dose: 250 mg Patient Own Med ( Budesonide 0.5 Mg/2 Ml Suspension For Nebulization) 0.5 mg INHALE RDAILY [facility] Pt Own Med ( Anagrelide 1 Mg Capsule) 2 mg PO DAILY [facility] Last Admin: 07/05/22 13:28 Dose: 2 mg Pharmacy Consult (Consult Rx Perform Med Rec) 1 each MISCELLANE ONCE PRN PRN Reason: Consult order Pregabalin (Pregabalin 25 Mg Capsule) 25 mg PO DAILY [facility] Last Admin: 07/05/22 10:32 Dose: 25 mg Pregabalin (Pregabalin 25 Mg Capsule) 50 mg PO BEDTIME [facility] Last Admin: 07/04/22 23:01 Dose: 50 mg Quetiapine Fumarate (Quetiapine Fumarate 25 Mg Tablet) 25 mg PO BEDTIME [facility] Last Admin: 07/04/22 23:01 Dose: 25 mg Sodium Chloride (0.9 % Sodium Chloride Flush 3 Ml Syringe) [address] [facility] Last Admin: 07/05/22 15:34 Dose: 3 ml Vitamin D (Cholecalciferol (Vitamin D3) 25 Mcg Tablet) 25 mcg PO BEDTIME [facility] Home Medications Medication Instructions Recorded Confirmed Last Taken Type anastrozole 1 mg tablet 1 tab PO DAILY 09/25/20 07/04/22 09/02/21 History ascorbic acid (vitamin C) 1,000 mg 1,000 mg PO DAILY 09/25/20 07/04/22 09/02/21 History tablet (Vitamin C) losartan 100 mg tablet 1 tab PO DAILY 09/25/20 07/04/22 09/02/21 History magnesium 250 mg tablet 250 mg PO QPM 09/25/20 07/04/22 09/02/21 History pregabalin 25 mg capsule 1 cap PO QAM 09/25/20 07/04/22 09/02/21 History quetiapine 25 mg tablet 1 tab PO BEDTIME 09/25/20 07/04/22 09/01/21 History aspirin 81 mg tablet,delayed 81 mg PO DAILY 09/02/21 07/04/22 09/02/21 History release bupropion HCl 300 mg 24 hr tablet, 1 tab PO DAILY 09/02/21 07/04/22 09/02/21 History extended release cholecalciferol (vitamin D3) 25 25 mcg PO BEDTIME 09/02/21 07/04/22 09/01/21 History mcg (1,000 unit) tablet donepezil 5 mg tablet 1 tab PO DAILY 09/02/21 07/04/22 09/02/21 History anagrelide 1 mg capsule 2 mg PO DAILY 09/03/21 07/04/22 Unknown History meloxicam 7.5 mg tablet 7.5 mg PO DAILY 03/28/22 07/04/22 Unknown History famotidine 40 mg tablet 40 mg PO QPM 07/04/22 07/04/22 Unknown History montelukast 10 mg tablet 10 mg PO BEDTIME 07/04/22 07/04/22 Unknown History multivitamin 1 tab PO DAILY 07/04/22 07/04/22 Unknown History pregabalin 25 mg capsule 2 mg PO QPM 07/04/22 07/04/22 Unknown History Physical Exam Vital Signs: Vital Signs: Last Vital Signs Temp 97.2 F 07/05/22 15:19 Pulse 92 07/05/22 15:19 Resp 18 07/05/22 15:19 BP 127/69 07/05/22 15:19 Pulse Ox 95 07/05/22 15:19 O2 Del Method Nasal Cannula 07/05/22 15:19 O2 Flow Rate 2 07/05/22 15:19 BMI result Body Mass Index 27.4 Const: General: cooperative HEENT: Head: Yes normal to inspection Face and sinus: Yes normal facial exam Mouth: Normal oral and palatal mucosa present Teeth and gingiva: dentition normal Eyes: General: appearance normal, both eyes and all related structures Pupils: Equal, round and reactive pupils present Resp: Effort & Inspection: normal respiratory effort Cardio: Rate: regular rate Rhythm: regular rhythm GI: Palpation (GI): Soft to palpation and nontender : General: Yes no CVA tenderness Back/Spine/Pelvis: Back: no CVA tenderness Skin: General skin exam: no rashes or lesions noted Neuro: General: moves all extremities Cranial nerves: Yes Equal, round and reactive pupils present Extrem: General: Yes normal to inspection Psych: Other: confusion,inert Results Labs 07/05/22 05:12 07/05/22 12:32 Labs: Short CBC 07/04/22 07/05/22 Range/Units 19:56 05:12 WBC 16.1 H 17.9 H (4.8-10.8) X10*3/uL Hgb 14.3 13.2 (12.0-16.0) g/dl Hct 46.1 42.1 (37.0-47.0) % Plt Count 402 H D 283 D (160-400) X10*3/uL BMP 07/04/22 07/05/22 07/05/22 19:56 05:12 12:32 Sodium 144 144 142 Potassium 5.6 H 5.1 4.9 Chloride 102 105 108 Carbon Dioxide 27 26 26 BUN 22 H 21 H 22 H Creatinine 1.07 1.09 1.08 Calcium 9.7 D 8.8 D 8.5 Liver Function 07/04/22 Range/Units 19:56 Total Bilirubin 1.7 H (0.0-1.0) mg/dL Direct Bilirubin 0.8 H (0.0-0.5) mg/dL AST 52 H (5-31) U/L ALT 25 (0-31) U/L Alkaline Phosphatase 92 (39-117) U/L Albumin 3.7 (3.5-5.0) g/dL Urine 07/04/22 Range/Units 21:50 Urine Color Dark Yellow Urine Appearance Cloudy Urine pH 5.5 (5.0-9.0) Ur Specific Jackson >= 1.030 H (1.005-1.025) Urine Protein 30 (1+) H (Neg-Trace) mg/dL Urine Glucose (UA) Negative (Negative) mg/dL Microbiology Microbiology Results: Microbiology 07/04/22 22:51 Urine clean catch - Urine mccann top Urine Culture - Preliminary Culture in progress. Assessment and Plan (1) Acute metabolic encephalopathy: Status: Acute Probable early sepsis Ecoli UTI likely underlying cognitive concerns (2) UTI (urinary tract infection): Status: Acute (3) Acidosis, lactic: Status: Acute (4) Sepsis: Status: Acute Plan Continue Ceftriaxone. Await cultures. Possible po Ceftin 10 d total if sensitive. Time Spent With Patient Time: Total time managing care of this patient today ____ minutes.
--- NOTE | 2022-07-05 16:31 | PC.NURSE ---
Patient ambulated to BR ,voided,bladder scanned after for 136 ml
[2022-07-05] MEDS: Magnesium Oxide 400 MG TABLET 200 MG PO (19:49)
[2022-07-05] MEDS: Cholecalciferol (Vitamin D3) 25 MCG TABLET PO (19:50)
[2022-07-05] MEDS: Montelukast Sodium 10 MG TABLET PO (19:50)
[2022-07-05] MEDS: Famotidine 20 MG TABLET 40 MG PO (19:50)
[2022-07-05] MEDS: Pregabalin 25 MG CAPSULE 50 MG PO (19:51)
[2022-07-05] MEDS: QUEtiapine Fumarate 25 MG TABLET PO (19:51)
[2022-07-05] MEDS: cefTRIAXone sodium 1 GM in 0.9 % Sodium Chloride 50 ML IV (21:02)
[2022-07-05] MEDS: Enoxaparin Sodium 40 MG/0.4 ML SYRINGE SUBCUT (21:02)
[2022-07-06] VITALS (9 sets, daily range): BP systolic 132–144; BP diastolic 79–95; PULSE 70–122; RESP 15–20; TEMP 36.1–36.9; O2SAT 89–98
[2022-07-06] MEDS: 0.9 % Sodium Chloride Flush 3 ML SYRINGE IVFLUSH ×4 (00:28→21:45)
[2022-07-06] MEDS: Albuterol/Iprat 2.5/0.5MG 3 ML AMPUL.NEB INHALE ×4 (07:42→19:42)
--- NOTE | 2022-07-06 08:26 | PM.PNCARD ---
Subjective Subjective Date of Service: 07/06/22 Interval history: Seen examined at bedside. Short of breath but saying that she is short of breath all the time and is on home oxygen for lung disease. She has peripheral edema as well as elevated neck veins. Currently getting nebulizer. She appears to be more awake at this stage. Physical Exam Vital Signs: Last Vital Signs Temp 98.4 F 07/06/22 04:15 Pulse 122 H 07/06/22 07:44 Resp 20 07/06/22 07:44 BP 132/79 07/06/22 04:15 Pulse Ox 97 07/06/22 04:15 O2 Del Method Nasal Cannula 07/06/22 04:15 O2 Flow Rate 2 07/05/22 19:39 BMI result Body Mass Index 27.4 GENERAL APPEARANCE: Awake, short of breath. NECK: no carotid bruit, positive jugular venous distention. SKIN: no suspicious lesions, warm and dry. HEART: no murmurs, regular rate and rhythm. LUNGS: Mild expiratory wheezes. ABDOMEN: soft, nontender. EXTREMITIES: no edema. PERIPHERAL PULSES: equal. NEUROLOGIC: No gross deficits, AAO X 3 Objective Labs and Meds 07/05/22 05:12 07/05/22 12:32 Lab results: Laboratory Results - last 24 hr 07/05/22 07/05/22 07/05/22 12:32 12:32 12:32 Sodium 142 Potassium 4.9 Chloride 108 Carbon Dioxide 26 Anion Gap 13 BUN 22 H Creatinine 1.08 Estim Creat Clear Calc 36.3 Estimated GFR 49 Random Glucose 93 Calcium 8.5 Ammonia 47 Troponin I High Sens 73.9 H* Progress Note: A&P Assessment and plan (1) Volume overload: Status: Acute (2) Elevated troponin: Status: Acute Plan [age] female with UTI and confusion. Improving at this stage. She was given significant volume on admission and appears to be a in mild congestive heart failure. She has chronic lower extremity edema. Recommend IV diuretics currently starting with 20 mg of Lasix. If she does not diurese well with that then 40 mg Lasix to be given. Mildly elevated troponin levels in the setting of urine infection. This is type 2 injury. She has no chest discomfort. Shortness of breath is explain due to lung disease as well as mild CHF. Thank you for allowing me to participate in the care of your patient. Please feel free to contact me if you have any questions. Time Spent With Patient Time: Total time managing care of this patient today ____ minutes. Progress Note: Quality Stroke Does the patient have a stroke diagnosis?: No Procedures Date of Service Date of Service: 07/06/22
[2022-07-06 08:27] LABS: Hemoglobin 12.3 g/dl (12.0-16.0); Red Cell Distribution Width 18.4 % (11.0-16.0)
[2022-07-06 08:29] LABS: Hematocrit 39.2 % (37.0-47.0); Mean Corpuscular HGB Conc 31.4 g/dl (31.0-35.0); Mean Corpuscular Hemoglobin 27.9 pg (27.0-33.0); Mean Corpuscular Volume 88.9 fL (80.0-98.0); NRBC Pct Auto 0.2 /100WBC (0.0-0.2); PLT CLUMP 1; Red Blood Count 4.41 X10*6/uL (4.20-5.50)
[2022-07-06 08:37] LABS: PLT ABN DIST 1; WBC ABN SCTR FOR CBC 1
[2022-07-06 08:55] LABS: Platelet Count 251 X10*3/uL (160-400); White Blood Count 11.7 X10*3/uL (4.8-10.8)
[2022-07-06] MEDS: buPROPion HCl XL 300 MG TAB.ER.24H PO (09:29)
[2022-07-06] MEDS: Ascorbic Acid 500 MG TABLET 1000 MG PO (09:29)
[2022-07-06] MEDS: Anastrozole 1 MG TABLET PO (09:29)
[2022-07-06] MEDS: Multivitamin TABLET 1 TAB PO (09:29)
[2022-07-06] MEDS: Pregabalin 25 MG CAPSULE PO (09:29)
[2022-07-06] MEDS: Aspirin Enteric Coated 81 MG TABLET.DR PO (09:30)
[2022-07-06] MEDS: Donepezil HCl 5 MG TABLET PO (09:30)
--- NOTE | 2022-07-06 11:38 | P.PNIM_ITS ---
Subjective Subjective Date of Service: 07/07/22 Interval History: f/u on metabolic encephalopathy UTI. Interval history: continues to improve, less confused, eating well, wants to go home Review of Systems Less confusion no chest pain or shortness of breath Physical Exam Vital Signs: Vital Signs: Last Vital Signs Temp 97.8 F 07/06/22 08:00 Pulse 98 07/06/22 11:14 Resp 20 07/06/22 11:14 BP 143/83 H 07/06/22 08:00 Pulse Ox 98 07/06/22 08:00 O2 Del Method Room Air 07/06/22 08:00 O2 Flow Rate 2 07/05/22 19:39 BMI result Body Mass Index 27.4 Const: Other: General: patient was pleasant, oriented to self and place but was not alert to date time Resp: CTA bilateral, no respiratory difficulties CVS: S1,S2,RRR, bilateral pedal edema, 2+ GI: +BS, NT, no distention Skin: No rash Neuro: motor grossly intact Psych: appropriate affect Objective Data Active Medications Acetaminophen (Acetaminophen 325 Mg Tablet) 650 mg PO Q6H PRN PRN Reason: Pain, Mild (Pain Scale 1-3) Albuterol Sulfate (Albuterol Sulfate 90 Mcg 8 Gm Inhaler) 2 puff INHALE RQ6H PRN PRN Reason: shortness of breath or wheezing Albuterol/Ipratropium (Albuterol/Iprat 2.5/0.5mg 3 Ml Ampul.Neb) 3 ml INHALE RQID [facility] Last Admin: 07/06/22 11:12 Dose: 3 ml Documented By: WALTER Anastrozole (Anastrozole 1 Mg Tablet) 1 mg PO DAILY [facility] Last Admin: 07/06/22 09:29 Dose: 1 mg Documented By: THOMAS Ascorbic Acid (Ascorbic Acid 500 Mg Tablet) 1,000 mg PO DAILY [facility] Last Admin: 07/06/22 09:29 Dose: 1,000 mg Documented By: THOMAS Aspirin (Aspirin Enteric Coated 81 Mg Tablet.) 81 mg PO DAILY [facility] Last Admin: 07/06/22 09:30 Dose: 81 mg Documented By: THOMAS Bupropion HCl (Bupropion Hcl Xl 300 Mg Tab.Er.24h) 300 mg PO DAILY [facility] Last Admin: 07/06/22 09:29 Dose: 300 mg Documented By: THOMAS Docusate Sodium (Docusate Sodium 100 Mg Capsule) 100 mg PO DAILY PRN PRN Reason: Constipation Donepezil HCl (Donepezil Hcl 5 Mg Tablet) 5 mg PO DAILY [facility] Last Admin: 07/06/22 09:30 Dose: 5 mg Documented By: THOMAS Enoxaparin Sodium (Enoxaparin Sodium 40 Mg/0.4 Ml Syringe) 40 mg SUBCUT Q24H [facility] Last Admin: 07/05/22 21:02 Dose: 40 mg Documented By: KESHAWN Famotidine (Famotidine 20 Mg Tablet) 40 mg PO BEDTIME [facility] Last Admin: 07/05/22 19:50 Dose: 40 mg Documented By: KESHAWN Ceftriaxone Sodium 1 gm/ (Sodium Chloride) 50 mls @ 100 mls/hr IV Q24H [facility] Stop: 07/08/22 22:29 Last Infusion: 07/05/22 21:36 Dose: 0 mls/hr Documented By: KESHAWN Magnesium Oxide (Magnesium Oxide 400 Mg Tablet) 200 mg PO BEDTIME [facility] Last Admin: 07/05/22 19:49 Dose: 200 mg Documented By: KESHAWN Montelukast Sodium (Montelukast Sodium 10 Mg Tablet) 10 mg PO BEDTIME [facility] Last Admin: 07/05/22 19:50 Dose: 10 mg Documented By: KESHAWN Multivitamins/Vitamin C (Multivitamin Tablet) 1 tab PO DAILY [facility] Last Admin: 07/06/22 09:29 Dose: 1 tab Documented By: THOMAS Patient Own Med ( Budesonide 0.5 Mg/2 Ml Suspension For Nebulization) 0.5 mg INHALE RDAILY [facility] Last Admin: 07/06/22 11:13 Dose: 0.5 mg Documented By: WALTER Pt Own Med ( Anagrelide 1 Mg Capsule) 2 mg PO DAILY [facility] Last Admin: 07/06/22 09:28 Dose: 2 mg Documented By: THOMAS Pharmacy Consult (Consult Rx Perform Med Rec) 1 each MISCELLANE ONCE PRN PRN Reason: Consult order Pregabalin (Pregabalin 25 Mg Capsule) 25 mg PO DAILY [facility] Last Admin: 07/06/22 09:29 Dose: 25 mg Documented By: THOMAS Pregabalin (Pregabalin 25 Mg Capsule) 50 mg PO BEDTIME [facility] Last Admin: 07/05/22 19:51 Dose: 50 mg Documented By: KESHAWN Quetiapine Fumarate (Quetiapine Fumarate 25 Mg Tablet) 25 mg PO BEDTIME [facility] Last Admin: 07/05/22 19:51 Dose: 25 mg Documented By: KESHAWN Sodium Chloride (0.9 % Sodium Chloride Flush 3 Ml Syringe) 3 ml IVFLUSH QSHIFT [facility] Last Admin: 07/06/22 09:28 Dose: 3 ml Documented By: THOMAS Vitamin D (Cholecalciferol (Vitamin D3) 25 Mcg Tablet) 25 mcg PO BEDTIME [facility] Last Admin: 07/05/22 19:50 Dose: 25 mcg Documented By: KESHAWN Labs 07/06/22 08:20 07/05/22 12:32 Labs: Laboratory Results - last 24 hr 07/05/22 07/05/22 07/05/22 12:32 12:32 12:32 MCV MCH MCHC RDW Plt Count MPV Absolute Nucleated RBC Nucleated RBC % (auto) Anion Gap 13 Estim Creat Clear Calc 36.3 Estimated GFR 49 Random Glucose 93 Calcium 8.5 Ammonia 47 Troponin I High Sens 73.9 H* 07/06/22 08:20 MCV 88.9 MCH 27.9 MCHC 31.4 RDW 18.4 H Plt Count 251 MPV Not Reportable Absolute Nucleated RBC 0.020 H Nucleated RBC % (auto) 0.2 Anion Gap Estim Creat Clear Calc Estimated GFR Random Glucose Calcium Ammonia Troponin I High Sens Microbiology Microbiology Results: Microbiology 07/04/22 21:28 Blood Culture - Preliminary Blood - Venous No growth after 24 hours. 07/04/22 19:54 Blood Culture - Preliminary Blood - Venous No growth after 24 hours. 07/04/22 22:51 Urine Culture - Preliminary Urine clean catch - Urine mccann top Culture in progress. Assessment and Plan (1) Acute metabolic encephalopathy: Status: Acute (2) UTI (urinary tract infection): Status: Acute Plan 77-year-old female with history of cerebral aneurysm s/p repair with subsequent cerebral infarction, unspecified dementia, chronic hypoxemic respiratory failure on supplemental O2 due to severe emphysema, hypertension, GERD, cardiomegaly, history of breast cancer on anastrozole, osteoporosis, thrombocytosis on anagrelide, history of rheumatic fever, and JALEEL admitted for acute metabolic e ncephalopathy due to UTI. ID consult # acute metabolic encephalopathy related to UTI -normal ammonia level -head CT negative -leukocytosis down to 11, no SIRS -IV ceftriaxone 1 g daily x5 days (initiated 07/04) -follow UC, BC -follow CBC -monitor mentation # acute hyperkalemia related to dehydration -K 5.6- is normal -holding losartan at this time -follow BMP # acute lactic acidosis -likely related to tissue hypoperfusion in the setting of dehydration, not severe sepsis #Elevated troponin -Initiatial 67, repeat 65 and 72, I don't think there is acute myocardial injury and more likely from demand from aculte illness -no CP, EKG nonischemic, discussed with cardiology no further testing #Leg edema--possible diastolic heart failure, cardiology advises Lasix # chronic hypoxemic respiratory failure due to severe emphysema-no acute exacerbation -continue supplemental O2 -continue home inhalers/nebulizers # unspecified dementia -continue donepezil and Seroquel -ovoid additional QT prolonging agents if possible due to prolonged QTC from medication use # history CVA/cerebral aneurysm -continue aspirin #finding ? cirrhosis on CT, check lier fibrosis panel # hypertension-reasonably controlled -hold losartan in setting of hyperkalemia, resume as appropriate # GERD -continue home meds # chronic thrombocytosis -likely related to myelodysplastic syndrome -continue anagrelide DVT prophylaxis-Lovenox DNR/DNI per MOLST form- confirmed with Physical Therapy eval and possibly home tomorrow Time Spent With Patient Time: Total time managing care of this patient today ____ minutes. Quality Stroke Does the patient have a stroke diagnosis?: No VTE Prior VTE?: No VTE Risk Level:: Medical - moderate - high VTE Device Contraindication: Treatment Not Indicated VTE Drug Contraindication: N/A - Med Ordered
[2022-07-06] MEDS: Furosemide 20 MG/2 ML VIAL IVPUSH (12:11)
--- NOTE | 2022-07-06 13:06 | PM.NEUROCN ---
History of Present Illness Data of Consult Service Date: 07/06/22 Primary Care Provider: Cricket Allen MD HPI Reason for consult: Stroke 77-year-old female with history of cerebral aneurysm s/p repair with subsequent cerebral infarction, unspecified dementia, chronic hypoxemic respiratory failure on supplemental O2 due to severe emphysema, hypertension, GERD, cardiomegaly, history of breast cancer on anastrozole, osteoporosis, thrombocytosis on anagrelide, history of rheumatic fever, and JALEEL presented to the ED with change in mental status. When I saw her she was complaining of weakness on left side. Review of Systems Review of Systems: No documented recent seizure [facility] Past Medical History Medical History (Updated 07/06/22 @ 13:09 by Sam Trinh MD) Cardiomegaly Cerebral aneurysm Cerebral infarct Chronic hypoxemic respiratory failure COPD (chronic obstructive pulmonary disease) Emphysema lung Former smoker GERD (gastroesophageal reflux disease) HTN (hypertension) Neuropathy JALEEL (obstructive sleep apnea) Osteoarthritis Osteoporosis Other thrombocytosis PVC (premature ventricular contraction) Rheumatic fever Sepsis Thoracic kyphosis Thrombocytosis Family History Family history: reviewed and not pertinent Surgical History Surgical History H/O bilateral breast reduction surgery H/O breast reconstruction H/O cerebral aneurysm repair H/O right mastectomy Social History Social History Household Members: Spouse Housing: House Patient Tobacco Use Status: Former Tobacco user Advance Directives Date on File: 09/26/20 service: No Current occupational status: retired Meds Allergies Allergy/AdvReac Type Severity Reaction Status Date / Time fluoxetine [From PROZAC] Allergy Intermediate UNKNOWN Unverified 03/28/22 15:38 dexamethasone [From MAXIDEX] Allergy Mild RASH Unverified 03/28/22 15:38 hydrochlorothiazide Allergy Unknown RASH Unverified 03/28/22 15:38 [Hydrochlorothiazide] moxifloxacin [Moxifloxacin] Allergy Unknown RASH Unverified 03/28/22 15:38 Serotonin 5HT-3 Antagonists AdvReac Unknown UNKNOWN Unverified 03/28/22 15:38 [Selective 5-HT3 Receptor Antagonist] trazodone AdvReac Unknown nausea and Verified 03/28/22 15:38 vomiting Tricyclic Antidepressants AdvReac Unknown UNKNOWN Unverified 03/28/22 15:38 and Tricy [TRICYCLIC COMPOUNDS] From MAXIDEX Allergy Unknown UNKNOWN Uncoded 03/28/22 15:38 Maxide Allergy Unknown Hives Uncoded 03/28/22 15:38 SSRI(Prozac) Allergy Unknown Unknown Uncoded 03/28/22 15:38 TCA(Nortripyline) Allergy Unknown Unknown Uncoded 03/28/22 15:38 NORTRIPTILIENE AdvReac Intermediate UNKNOWN Uncoded 03/28/22 15:38 Active Medications: Current Medications Acetaminophen (Acetaminophen 325 Mg Tablet) 650 mg PO Q6H PRN PRN Reason: Pain, Mild (Pain Scale 1-3) Albuterol Sulfate (Albuterol Sulfate 90 Mcg 8 Gm Inhaler) 2 puff INHALE RQ6H PRN PRN Reason: shortness of breath or wheezing Albuterol/Ipratropium (Albuterol/Iprat 2.5/0.5mg 3 Ml Ampul.Neb) 3 ml INHALE RQID [facility] [place] Last Admin: 07/06/22 11:12 Dose: 3 ml Anastrozole (Anastrozole 1 Mg Tablet) 1 mg PO DAILY [facility] [place] Last Admin: 07/06/22 09:29 Dose: 1 mg Ascorbic Acid (Ascorbic Acid 500 Mg Tablet) 1,000 mg PO DAILY [facility] [place] Last Admin: 07/06/22 09:29 Dose: 1,000 mg Aspirin (Aspirin Enteric Coated 81 Mg Tablet.Dr) 81 mg PO DAILY [facility] [place] Last Admin: 07/06/22 09:30 Dose: 81 mg Bupropion HCl (Bupropion Hcl Xl 300 Mg Tab.Er.24h) 300 mg PO DAILY [facility] [place] Last Admin: 07/06/22 09:29 Dose: 300 mg Docusate Sodium (Docusate Sodium 100 Mg Capsule) 100 mg PO DAILY PRN PRN Reason: Constipation Donepezil HCl (Donepezil Hcl 5 Mg Tablet) 5 mg PO DAILY [facility] [place] Last Admin: 07/06/22 09:30 Dose: 5 mg Enoxaparin Sodium (Enoxaparin Sodium 40 Mg/0.4 Ml Syringe) 40 mg SUBCUT Q24H [facility] [place] Last Admin: 07/05/22 21:02 Dose: 40 mg Famotidine (Famotidine 20 Mg Tablet) 40 mg PO BEDTIME [facility] [place] Last Admin: 07/05/22 19:50 Dose: 40 mg Ceftriaxone Sodium 1 gm/ (Sodium Chloride) 50 mls @ 100 mls/hr IV Q24H [facility] Stop: 07/08/22 22:29 Last Infusion: 07/05/22 21:36 Dose: Infused Magnesium Oxide (Magnesium Oxide 400 Mg Tablet) 200 mg PO BEDTIME [facility] [place] Last Admin: 07/05/22 19:49 Dose: 200 mg Montelukast Sodium (Montelukast Sodium 10 Mg Tablet) 10 mg PO BEDTIME [facility] Last Admin: 07/05/22 19:50 Dose: 10 mg Multivitamins/Vitamin C (Multivitamin Tablet) 1 tab PO DAILY [facility] Last Admin: 07/06/22 09:29 Dose: 1 tab Patient Own Med ( Budesonide 0.5 Mg/2 Ml Suspension For Nebulization) 0.5 mg INHALE RDAILY [facility] [place] Last Admin: 07/06/22 11:13 Dose: 0.5 mg Pt Own Med ( Anagrelide 1 Mg Capsule) 2 mg PO DAILY [facility] [place] Last Admin: 07/06/22 09:28 Dose: 2 mg Pharmacy Consult (Consult Rx Perform Med Rec) 1 each MISCELLANE ONCE PRN PRN Reason: Consult order Pregabalin (Pregabalin 25 Mg Capsule) 25 mg PO DAILY [facility] [place] Last Admin: 07/06/22 09:29 Dose: 25 mg Pregabalin (Pregabalin 25 Mg Capsule) 50 mg PO BEDTIME [facility] [place] Last Admin: 07/05/22 19:51 Dose: 50 mg Quetiapine Fumarate (Quetiapine Fumarate 25 Mg Tablet) 25 mg PO BEDTIME [facility] [place] Last Admin: 07/05/22 19:51 Dose: 25 mg Sodium Chloride (0.9 % Sodium Chloride Flush 3 Ml Syringe) 3 ml IVFLUSH QSHIFT [facility] [place] Last Admin: 07/06/22 09:28 Dose: 3 ml Vitamin D (Cholecalciferol (Vitamin D3) 25 Mcg Tablet) 25 mcg PO BEDTIME [facility] [place] Last Admin: 07/05/22 19:50 Dose: 25 mcg Home Medications Medication Instructions Recorded Confirmed Last Taken Type anastrozole 1 mg tablet 1 tab PO DAILY 09/25/20 07/04/22 09/02/21 History ascorbic acid (vitamin C) 1,000 mg 1,000 mg PO DAILY 09/25/20 07/04/22 09/02/21 History tablet (Vitamin C) losartan 100 mg tablet 1 tab PO DAILY 09/25/20 07/04/22 09/02/21 History magnesium 250 mg tablet 250 mg PO QPM 09/25/20 07/04/22 09/02/21 History pregabalin 25 mg capsule 1 cap PO QAM 09/25/20 07/04/22 09/02/21 History quetiapine 25 mg tablet 1 tab PO BEDTIME 09/25/20 07/04/22 09/01/21 History aspirin 81 mg tablet,delayed 81 mg PO DAILY 09/02/21 07/04/22 09/02/21 History release bupropion HCl 300 mg 24 hr tablet, 1 tab PO DAILY 09/02/21 07/04/22 09/02/21 History extended release cholecalciferol (vitamin D3) 25 25 mcg PO BEDTIME 09/02/21 07/04/22 09/01/21 History mcg (1,000 unit) tablet donepezil 5 mg tablet 1 tab PO DAILY 09/02/21 07/04/22 09/02/21 History anagrelide 1 mg capsule 2 mg PO DAILY 09/03/21 07/04/22 Unknown History meloxicam 7.5 mg tablet 7.5 mg PO DAILY 03/28/22 07/04/22 Unknown History famotidine 40 mg tablet 40 mg PO QPM 07/04/22 07/04/22 Unknown History montelukast 10 mg tablet 10 mg PO BEDTIME 07/04/22 07/04/22 Unknown History multivitamin 1 tab PO DAILY 07/04/22 07/04/22 Unknown History pregabalin 25 mg capsule 2 mg PO QPM 07/04/22 07/04/22 Unknown History Physical Exam Vital Signs: Vital Signs: Last Vital Signs Temp 97.8 F 07/06/22 08:00 Pulse 98 07/06/22 11:14 Resp 20 07/06/22 11:14 BP 143/83 H 07/06/22 08:00 Pulse Ox 98 07/06/22 08:00 O2 Del Method Room Air 07/06/22 08:00 O2 Flow Rate 2 07/05/22 19:39 BMI result Body Mass Index 27.4 Neuro: Other: Alert and awake with moderate dysarthria and [id number] left hemiparesis. Results Labs 07/06/22 08:20 07/05/22 12:32 Labs: Short CBC 07/06/22 Range/Units 08:20 WBC 11.7 H (4.8-10.8) X10*3/uL Hgb 12.3 (12.0-16.0) g/dl Hct 39.2 (37.0-47.0) % Plt Count 251 (160-400) X10*3/uL couple of aneurysm clipping moderate cerebral atrophy and moderate micron and microvascular ischemic changes were noted Microbiology Microbiology Results: Microbiology 07/04/22 22:51 Urine clean catch - Urine mccann top Urine Culture - Preliminary Gram negative naavrro 07/04/22 21:28 Blood - Venous Blood Culture - Preliminary No growth after 24 hours. 07/04/22 19:54 Blood - Venous Blood Culture - Preliminary No growth after 24 hours. Assessment and Plan (1) Cerebral infarct: Status: Acute 77 years old woman with previous history of aneurysm clipping moderate cerebral atrophy and moderate chronic microvascular ischemic changes probably had an ischemic pontine infarct resulting in dysarthria and left hemiparesis. She cannot have an MRI. Mainstay of management is an anti-platelet agent statin and blood pressure control with PT and OT. Time Spent With Patient Time: Total time managing care of this patient today ____ minutes. Procedures Date of Service Date of Service: 07/06/22
[2022-07-06] MEDS: Pregabalin 25 MG CAPSULE 50 MG PO (21:43)
[2022-07-06] MEDS: Famotidine 20 MG TABLET 40 MG PO (21:43)
[2022-07-06] MEDS: Montelukast Sodium 10 MG TABLET PO (21:43)
[2022-07-06] MEDS: QUEtiapine Fumarate 25 MG TABLET PO (21:44)
[2022-07-06] MEDS: Magnesium Oxide 400 MG TABLET 200 MG PO (21:44)
[2022-07-06] MEDS: Cholecalciferol (Vitamin D3) 25 MCG TABLET PO (21:44)
[2022-07-06] MEDS: cefTRIAXone sodium 1 GM in 0.9 % Sodium Chloride 50 ML IV (21:45)
[2022-07-06] MEDS: Enoxaparin Sodium 40 MG/0.4 ML SYRINGE SUBCUT (21:45)
[2022-07-07 04:00] VITALS: BP 163/80; PULSE 95; RESP 17; TEMP 36.6; O2SAT 97
[2022-07-07 07:44] VITALS: BP 144/96; PULSE 100; RESP 20; TEMP 36.6; O2SAT 90
[2022-07-07] MEDS: Albuterol/Iprat 2.5/0.5MG 3 ML AMPUL.NEB INHALE ×2 (08:00→11:31)
[2022-07-07 08:02] VITALS: PULSE 93; RESP 20; O2SAT 95
[2022-07-07] MEDS: Pregabalin 25 MG CAPSULE PO (09:13)
[2022-07-07] MEDS: Donepezil HCl 5 MG TABLET PO (09:13)
[2022-07-07] MEDS: buPROPion HCl XL 300 MG TAB.ER.24H PO (09:13)
[2022-07-07] MEDS: Multivitamin TABLET 1 TAB PO (09:13)
[2022-07-07] MEDS: Ascorbic Acid 500 MG TABLET 1000 MG PO (09:13)
[2022-07-07] MEDS: 0.9 % Sodium Chloride Flush 3 ML SYRINGE IVFLUSH (09:14)
[2022-07-07] MEDS: Anastrozole 1 MG TABLET PO (09:14)
[2022-07-07] MEDS: Aspirin Enteric Coated 81 MG TABLET.DR PO (09:15)
--- NOTE | 2022-07-07 09:20 | PM.DS ---
DS: Providers Provider Date of Service: 07/07/22 Date of admission: 07/04/22 21:49 Primary care physician: Cricket Allen MD Consults: 07/05/22 08:13 Consult to Infectious Diseases Routine Consulting [place] [facility] Reason for consultation: recurrent UTI Has provider been notified: No 07/05/22 13:11 Consult to Cardiology Routine Consulting Provider[place] [facility] Reason for consultation: elevated troponin Has provider been notified: Yes DS: Diagnosis Discharge Diagnosis (1) Acute metabolic encephalopathy: Status: Acute (2) UTI (urinary tract infection): Status: Acute DS: Summary Hospital Course Hospital Course: Chief Complaint: ams 77-year-old female with history of cerebral aneurysm s/p repair with subsequent cerebral infarction, unspecified dementia, chronic hypoxemic respiratory failure on supplemental O2 due to severe emphysema, hypertension, GERD, cardiomegaly, history of breast cancer on anastrozole, osteoporosis, thrombocytosis on anagrelide, history of rheumatic fever, and JALEEL presented to the ED with her , Dr. Cruz, for evaluation of altered mental status.? He states that his [id number], who lives with him and the patient, noted the patient to be confused today.? She sat in the bathroom for the majority of the day on the toilet and was not eating or drinking.? He states she had a similar presentation last summer when she was admitted for urosepsis.? In the ED, vital signs stable.? There is a leukocytosis of 16.1.? Renal function baseline.? Mild hyperkalemia of 5.6.? AST 52, ALT 25, total bilirubin 1.7, direct bilirubin 0.8.? Lactic acid 3.4.? Initial troponin 67.5, repeat pending.? EKG showing NSR, rate [address]/T-wave abnormality and prolonged QTC 542 (chronically elevated), no significant change compared to prior EKGs.? UA with 2+ leukocytes, nitrite positive, negative blood, elevated specific gravity, positive urinary sediment and bacteria.? Head CT is without any acute intracranial abnormality but does show chronic regions of encephalomalacia and moderate to extensive underlying microangiopathy and generalized cerebral volume loss as well as changes of prior left pterional craniotomy with aneurysm clots in the region of the anterior communicating artery an M1-M2 segment of left MCA.? CXR without any acute cardiopulmonary abnormality.? CT abdomen/pelvis report pending.? In the ED, treated with 3 L IV NS, 1 g IV ceftriaxone, 325 mg aspirin, and 2.5 mg Haldol due to agitation. Hospital course: Patient presented with altered mental status and found to have UTI. She was treated with IV ceftriaxone, culture came back positive for E. coli which is sensitive to all agents. The encephalopathy has resolved and she at her baseline mental status. She will be discharged with with ceftin 250 mg twice a day for 2 more days. She has mild increase in troponin I level and was evaluated by cardiology and thought that it is related to sepsis and acute infection, she did not have chest pain and no dynamic ecg changes. She had a CT of abdomen and pelvis that showed Cirhotic liver she no history of driking, lft mildly elevated, liver fibrosis panel is pending. Time Spent with Patient Time attestation: Total time managing care of this patient today ____ minutes. Discharge coordination time: Greater than 30 minutes Quality: Safe Use of Opioids Does Pt have an Active Cancer Diagnosis on the Problem List?: No Quality: Stroke Does the patient have a stroke diagnosis?: No Physical Exam Vital Signs: Vital Signs: Last Vital Signs Temp 97.9 F 07/07/22 07:44 Pulse 93 07/07/22 08:02 Resp 20 07/07/22 08:02 BP 144/96 H 07/07/22 07:44 Pulse Ox 90 L 07/07/22 07:44 O2 Del Method Nasal Cannula 07/07/22 07:44 O2 Flow Rate 3 07/07/22 07:44 BMI result Body Mass Index 27.4 General: AO X 3, no acute distress Resp: CTA bilateral CVS: S1,S2,RRR GI: +BS, NT, no distention Skin: No rash Neuro: motor grossly intact Psych: appropriate affect DS: Data Data Completed and Pending Labs on day of discharge: Preliminary micro results at discharge 07/04/22 21:28 Blood Culture - Preliminary Blood - Venous No growth after 48 hours. 07/04/22 19:54 Blood Culture - Preliminary Blood - Venous No growth after 48 hours. Discharge Plan Discharge Anticipated Discharge Date/Time: 07/07/22 09:04 Patient Disposition: Home, Self-Care Discharge Diagnosis: UTI, sepsis, metabolic encephalopathy Referrals: Cricket Allen MD [Primary Care Provider] - 1 Week Discharge Medications: New cefuroxime axetil 250 mg tablet 250 mg PO BID 5 Days Qty: 10 0RF Continued albuterol sulfate [ProAir HFA] 90 mcg/actuation HFA aerosol inhaler 2 puff inhalation Q6H PRN (Reason: shortness of breath or wheezing) 30 Days Qty: 18 11RF budesonide 0.5 mg/2 mL suspension for nebulization 0.5 mg inhalation DAILY 90 Days Qty: 180 3RF ipratropium-albuterol 0.5 mg-3 mg(2.5 mg base)/3 mL solution for nebulization 3 ml inhalation QID Qty: 1080 0RF quetiapine 25 mg tablet 1 tab PO BEDTIME anastrozole 1 mg tablet 1 tab PO DAILY losartan 100 mg tablet 1 tab PO DAILY pregabalin 25 mg capsule 1 cap PO QAM ascorbic acid (vitamin C) [Vitamin C] 1,000 mg Tablet 1,000 mg PO DAILY magnesium 250 mg Tablet 250 mg PO QPM donepezil 5 mg tablet 1 tab PO DAILY bupropion HCl 300 mg tablet extended release 24 hr 1 tab PO DAILY aspirin 81 mg Tablet,Delayed Release (Dr/Ec) 81 mg PO DAILY cholecalciferol (vitamin D3) 25 mcg (1,000 unit) Tablet 25 mcg PO BEDTIME anagrelide 1 mg capsule 2 mg PO DAILY famotidine 40 mg tablet 40 mg PO QPM pregabalin 25 mg capsule 2 mg PO QPM multivitamin Tablet 1 tab PO DAILY montelukast 10 mg tablet 10 mg PO BEDTIME Discontinued meloxicam 7.5 mg tablet 7.5 mg PO DAILY Discharge Orders: Discharge Order (Routine); Ordered 07/07/22 Ordered By: Nino Mejia Diet: Advance to usual diet Activity on Discharge: As tolerated Stand Alone Forms: Patient Portal Discharge page Care Plan Goals: full recovery from UTI and metabolic encephalopathy Health Concerns: recurrent UTI metabolic encephalopathy-- that has resolved Plan of Treatment: to take cefuroxime (Ceftin) for 5 more days to eradicating the UTI this plan was communicated to Assessment: as above Discharge Date/Time: 07/07/22 12:04
--- NOTE | 2022-07-07 10:57 | MHC.CM.PN ---
PATIENT IS DC HOME WITH FAMILY - [facility] CARE RN AWARE OF PLAN. IMM 07/05 PREVIOUSLY COMPLETED
[2022-07-07 11:32] VITALS: PULSE 102; RESP 20; O2SAT 94
[2022-07-11 14:19] LABS: FIB-ALT 20 U/L (6-29); FIB-Alpha-2-Macroglobulin 252 mg/dL (106-279); FIB-Apolipoprotein A1 110 mg/dL (101-198); FIB-GGT 34 U/L (3-65); FIB-Haptoglobin 52 mg/dL (43-212); FIB-Total Bilirubin 0.4 mg/dL (0.2-1.2); Liver Fibrosis Score 0.63; Liver Fibrosis Stage F3; Nec Inflam Act Grade A0; Nec Inflam Act Score 0.12
== END 2022-07-07 12:04 | disposition home or self-care (01) | DRG 689 ==
LOC: HO.ED 21:15 → HO.EDOVER 21:55 → HO.S3 07-05 07:23
PROVIDERS: Student in an Organized Health Care Education/Training Program; Admitting Provider Physician Assistant; Emergency Provider Student in an Organized Health Care Education/Training Program; PCP Internal Medicine Medical Oncology; Visit Provider Internal Medicine
DX: N39.0 Urinary tract infection, site not specified (principal); G93.41 Metabolic encephalopathy; I63.89 Other cerebral infarction; J96.11 Chronic respiratory failure with hypoxia; I24.8 Other forms of acute ischemic heart disease; I50.30 Unspecified diastolic (congestive) heart failure; E87.21 Acute metabolic acidosis; I69.354 Hemiplegia and hemiparesis following cerebral infarction affecting left non-dominant side; E86.0 Dehydration; Z66 Do not resuscitate; J43.9 Emphysema, unspecified; G30.9 Alzheimer's disease, unspecified; F02.80 Dementia in other diseases classified elsewhere, unspecified severity, without behavioral disturbance, psychotic disturbance, mood disturbance, and anxiety; E87.5 Hyperkalemia; K21.9 Gastro-esophageal reflux disease without esophagitis; G47.33 Obstructive sleep apnea (adult) (pediatric); C50.911 Malignant neoplasm of unspecified site of right female breast; B96.20 Unspecified Escherichia coli [E. coli] as the cause of diseases classified elsewhere; M81.0 Age-related osteoporosis without current pathological fracture; I11.0 Hypertensive heart disease with heart failure; K74.60 Unspecified cirrhosis of liver; D75.838 Other thrombocytosis; Z90.11 Acquired absence of right breast and nipple; Z20.822 Contact with and (suspected) exposure to COVID-19; Z99.81 Dependence on supplemental oxygen; Z88.8 Allergy status to other drugs, medicaments and biological substances; Z79.82 Long term (current) use of aspirin; Z79.811 Long term (current) use of aromatase inhibitors; Z79.899 Other long term (current) drug therapy; I69.322 Dysarthria following cerebral infarction
CPT/HCPCS: 36415; 70450; 71046; 74177; 76705; 80048; 80076; 81001; 81596; 82140; 82947; 83605; 83690; 84484; 85007; 85027; 87040; 87086; 87088; 87186; 87635; 93005; 94640; 97163; 99285; J0696; J1650; J1940; Q9967

== ENCOUNTER → 2022-07-12 13:54 | Outpatient (REF) | payer MEDICARE, SELFPAY ==
--- NOTE | 2022-07-12 14:00 | CA_ITS ---
Transthoracic Echocardiogram Patient (Last, First, Middle): Ibis Cruz E Gender: Female Date of : 1945 Age: 77 Procedure Date: 07/12/2022 Procedure Type: Transthoracic Echocardiogram Location: OP Height: 149.86 cm Weight: 58.06 kg BSA: 1.53 m2 Heart Rate: bpm BP: 118 / 60 mmHg Manager Of Tax: Referring MD: Cricket Allen MD Looper Operator: Jere Vallejo MD Symptoms: CHF Study Quality: Fair ECG Rhythm: Sinus Conclusions: - 1. Low normal LV systolic function with grade 2 diastolic dysfunction 2. Moderately dilated left atrium 3. Kfhs-[id number] aortic stenosis 4. Normal RV systolic pressure 5. Small pericardial effusion Findings Left Ventricle Normal left ventricular cavity size. There is normal left ventricular wall thickness. The left ventricular systolic function is low normal. The visually estimated ejection fraction is between 50-55%. Spectral Doppler is indicative of a pseudonormal filling pattern. E/E prime ratio is >15, consistent with elevated filling pressures. Evidence suggests grade II (moderate) diastolic dysfunction. Right Ventricle Mildly increased right ventricular cavity size. There is low normal right ventricular systolic function. Atria The left atrium is moderately dilated. There is no evidence of interatrial shunt. The right atrium is mildly dilated. Aortic Valve There is mild calcification of the aortic valve. There is mild to moderate aortic valve stenosis. There is no aortic valve regurgitation. Mitral Valve There is mild anterior and moderate posterior mitral leaflet thickening. There is moderate mitral annular calcification. There is mild mitral valve regurgitation. There is no mitral valve stenosis. Pulmonic Valve The pulmonic valve is likely normal. There is trace pulmonic valve regurgitation. Tricuspid Valve Normal tricuspid valve structure. Tricuspid regurgitation envelope is inadequate for calculation of right ventricular systolic pressure. Normal right atrial pressure. There is no evidence of pulmonary hypertension. Great Vessels All visible segments of the aorta are normal in size. The pulmonary artery was not well visualized. Venous The inferior vena cava is normal in size and collapses greater than 50% with inspiration. Pericardium/Pleural There is a small circumferential pericardial effusion. Prior Study Comparison Changes noted compared to prior study dated: 04/16/2022. small pericardial effusion is present Measurements 2D Linear Measurements IVSd: 1.13 0.6-0.9/0.6-1.0 cm LVIDd: 5.24 3.9-5.3/4.2-5.9 cm LVIDd Index: 3.42 2.4-3.2/2.2-3.1 cm/m2 LVIDs: 3.86 2.0-3.6 cm LVPWd: 1.11 0.7-1.1 cm Ao Root: 2.80 2.1-3.5 cm LA Diam: 5.00 2.7-3.8/3.0-4.0 cm LAIDs Index: 3.27 1.5-2.3 cm/m2 LV Mass: 285.62 67-162/88-224 g LV Mass Index: 186.68 43-95/49-115 g/m2 LVOT Diam: 1.90 3.0+(-)1.3 cm 2D Systolic Function EF 4C: 50.60 >55% EF 2C: 49.80 >55% EF BiP: 50.80 >55% Mitral Valve MV Pk E: 1.25 MV PK A: 1.02 MV Decel Time: 135.00 E/A: 1.20 E'Lateral: 4.13 E'Medial: 4.68 E/E' Med: 26.70 E/E' Lat: 30.30 PHT: 40.00 MVA PHT: 5.50 Decel [place]: 9.26 Aortic Valve AoV Pk Angelo: 2.33 AoV Mn Angelo: 1.48 AoV VTI: 0.41 AoV Pk Grad: 22.00 Aov Mn Grad: 11.00 ANAYA Cont.VTI: 1.32 LVOT LVOT Pk Angelo: 1.08 LVOT Mn Angelo: 0.68 LVOT VTI: 0.19 LVOT Pk Grad: 5.00 LVOT Mn Grad: 2.00 LVOT Diam: 1.90 LVOT Area: 2.84 Diastolic Function MV Pk E: 1.25 MV Pk A: 1.02 E/A: 1.20 E'Medial: 4.68 E/E' Med: 26.70 E' Laterial: 4.13 E/E' Lat: 30.30 Tricuspid Valve TR Pk Angelo: 3.12 TR Pk Grad: 39.00 RA Press: 3.00 Great Vessels Aorta Ao Root-2D: 2.80 2.0-3.7 cm Ao Asc: 3.40 2.1-3.4 cm Pulmonary Valve PV Pk Angelo: 1.20 Peak PV Grad: 6.00 Updated in Other Vendor System with Status of Final Jere Vallejo MD electronically signed on 07/12/2022 4:19:58 PM with status of Final
== END ==
LOC: HO.CARD 13:54
PROVIDERS: PCP Internal Medicine Medical Oncology; Visit Provider Internal Medicine Medical Oncology
DX: I50.9 Heart failure, unspecified (principal); I07.1 Rheumatic tricuspid insufficiency
CPT/HCPCS: 93306

== ENCOUNTER → 2022-07-17 14:27 | Outpatient (BNVA) | payer MEDICARE, SELFPAY | PROVIDERS: PCP Internal Medicine Medical Oncology; Visit Provider Surgery | DX: K64.8 Other hemorrhoids (principal) | CPT/HCPCS: 46600; 99202 ==